=== PATIENT | female | born 1960 | race Caucasian/White ===

== ENCOUNTER 2016-03-03 15:20 | Emergency (ER) | payer SELFPAY ==
[~2016-03-03] VITALS: Wt 68.0 kg
[~2016-03-03 15:20] MED LIST: ALPR0.25 PO; ASCO500C7 PO; MULT-552 PO; OMEP40CA6 PO; POLY17PO6 PO; TRAM50TA2 PO; ZINC220C10 PO
== END 2016-03-03 17:22 | disposition left against medical advice (07) ==
LOC: E/R 15:20
DX: Z53.21 Procedure and treatment not carried out due to patient leaving prior to being seen by health care provider (principal)
CPT/HCPCS: 93005

== ENCOUNTER 2016-03-16 13:47 | Day surgery (SDC) | payer OTHER ==
[~2016-03-16] VITALS: Ht 170.2 cm; Wt 68.9 kg
[2016-03-16 14:49] VITALS: Ht 170.2 cm; Wt 68.9 kg
[2016-03-16] MEDS ORDERED: LACTULOSE (14:49)
[2016-03-16] MEDS ORDERED: ZOFRAN (14:49)
[2016-03-16] MEDS ORDERED: COLACE (14:49)
[2016-03-16] MEDS ORDERED: MORPHINE (14:49)
[2016-03-16 15:17] VITALS: BP 102/51; PULSE 63; RESP 18
[2016-03-16] MEDS ORDERED: FENTAnyl 50 MCG/ML VIAL ONE (15:49)
[2016-03-16] MEDS ORDERED: PROPOFOL 20 ML ONE (15:49)
[2016-03-16] MEDS ORDERED: MIDAZOLAM 1 MG/ML 2 ML INJ ONE (15:49)
[2016-03-16 16:45] VITALS: BP 115/66; PULSE 77; RESP 18
--- NOTE | 2016-03-16 18:42 | GILP ---
DATE OF PROCEDURE: 03/16/2016 PROCEDURE: Colonoscopy via colostomy and colonoscopy via rectum with biopsies. BRIEF HISTORY AND INDICATIONS: The patient with history of colon cancer, post low anterior resectio n, here for reevaluation for possible reanastomosis. PREMEDICATION: Monitored anesthesia care by anesthesiologist. TECHNIQUE: After informed consent, the patient was placed in the left lateral decubitus. Digital r ectal examination was performed. Following this, the Olympus colonoscope was introduced. The remna nt of the rectum extends for approximately 12 to 15 cm. It shows changes typical for deviation proc titis with friability of the mucosa. A single biopsy was obtained. The instrument was withdrawn. Moderate sized internal hemorrhoids are present. Following this, the patient was placed in the supi ne position. The colostomy bag was opened and the instrument was carefully introduced into the osto my and advanced throughout all segments of the colon, which appeared unremarkable. The instrument w as withdrawn and reexamined the mucosa in detail. No additional abnormalities are noted. IMPRESSION: 1. 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 2. Normal appearing mucosa to cecum via ostomy. PLAN: Pathology will be reviewed as soon as available. The patient appears cleared for reanastomos is. Followup colonoscopy within a year is recommended. Dictated By: ROMAN DAVIS MS/JUANITO Conf#: [id number] DID#: [id number] CC: ROMAN DAVIS;*EndCC*
== END 2016-03-16 16:33 | disposition home or self-care (01) ==
LOC: GIL 13:47
PROVIDERS: ATTEND Internal Medicine Gastroenterology
DX: Z85.038 Personal history of other malignant neoplasm of large intestine (principal); K62.89 Other specified diseases of anus and rectum
CPT/HCPCS: 45380; 84703; 88305; J2250; J3010; Z7610

== ENCOUNTER 2016-08-18 17:13 | Emergency (ER) | payer OTHER ==
[~2016-08-18] VITALS: Ht 167.6 cm; Wt 66.0 kg
[~2016-08-18 17:13] MED LIST changes: -ALPR0.25 PO; -ASCO500C7 PO; +COLACE; +LACTULOSE; +MORPHINE; -POLY17PO6 PO; -TRAM50TA2 PO; -ZINC220C10 PO; +ZOFRAN
[2016-08-18 17:19] VITALS: Ht 167.6 cm; Wt 66.0 kg
[2016-08-18] MEDS ORDERED: DEXTROSE 5% IV STA (17:57)
[2016-08-18] MEDS ORDERED: ACETAMINOPHEN 500 MG TAB PO STA (17:57)
[2016-08-18] MEDS ORDERED: morphine 4 MG/ML VIAL IV STA (17:57)
[2016-08-18] MEDS ORDERED: ONDANSETRON IV STA (17:57)
[2016-08-18] MEDS ORDERED: SOD CHLORIDE 0.9% 1,000 ML IV STA (17:57)
[2016-08-18] MEDS ORDERED: IBUPROFEN 800 MG TAB PO ONE (18:30)
[2016-08-18] MEDS ORDERED: ONDANSETRON 4 MG INJ ONE (18:33)
[2016-08-18] MEDS ORDERED: ONDANSETRON 4 MG INJ IV STA (18:36)
--- NOTE | 2016-08-18 18:42 | RADRPT ---
PROCEDURE: CT Abdomen and Pelvis without contrast. CLINICAL INDICATION: Abdominal and flank pain TECHNIQUE: CT of the abdomen and pelvis was performed on a multi-detector scanner without IV contr ast. Coronal and sagittal images were reformatted from the axial data set. One or more of the foll owing dose reduction techniques were used: automated exposure control, adjustment of the mA and/or k V according to patient size, use of iterative reconstruction technique. CTDI = 8.64 mGy. DLP = 474. 24 mGy-cm. COMPARISON: CT, 07/21/2015 FINDINGS: CT abdomen: The lung bases are clear. The heart size is normal, without pericardial effusion. The liver is cir rhotic. No gross evidence of focal hepatic mass is identified. Gallbladder is surgically absent. Biliary tree and pancreas are unremarkable. Splenomegaly is noted measuring 14 cm. Adrenal glands and kidneys are unremarkable. No urolithiasis or obstructive uropathy is identified. The stomach i s grossly unremarkable. The aorta is of normal caliber. There is no retroperitoneal lymphadenopathy. The kaitlin hepatis reg ion is clear. CT pelvis: No bowel obstruction, free intraperitoneal air or abscess is identified. The patient is status post sigmoid colon resection and left lower quadrant colostomy placement. Bowel containing parastomal v entral hernia is identified. Mild retained fecal material may indicate constipation. There is no d iverticulosis, diverticulitis, colitis or appendicitis. There is suspicion of mild urinary bladder wall thickening and adjacent edema. Uterus and adnexa are grossly unremarkable. No pelvic mass, fr ee fluid or lymphadenopathy is identified. The surrounding osseous structures are remarkable for degenerative enthesopathy of the spine. No os teolytic or osteoblastic lesion is detected. IMPRESSION: 1. There is suspicion of mild urinary bladder wall thickening and adjacent edema, possibly artifact ual secondary to incomplete distension, though cystitis is not excluded. 2. The liver is cirrhotic. Splenomegaly is noted, which can be seen in the setting of portal hyper tension. 3. The patient is status post sigmoid colon resection and left lower quadrant colostomy placement. 4. Bowel containing parastomal ventral hernia is identified, without obstruction or incarceration, new when compared to the prior exam. 5. Gallbladder is surgically absent. 6. Mild retained fecal material may indicate constipation. 7. There is no urolithiasis or obstructive uropathy. RPTAT: PP .Larry Murray MD, MD Date Time Electronically viewed and signed by .Larry Murray MD, MD on 08/18/2016 18:42 .R/
--- NOTE | 2016-08-18 18:50 | ERD ---
ER Documentation Chief Complaint Date/Time DATE: 08/18/16 TIME: 18:47 Chief Complaint Complains of abdominal pain and urine problems x 3 days HPI This 55-year-old female who presents the emergency department today complaining of burning and pain with urination for the past couple of days, abdominal pain and right-sided back pain. Patient states that she has had increased frequency. States she think she has a history of kidney stones. States she has a history of colon cancer and has a colostomy bag. States she last finished chemotherapy 3 months ago. She has a history of hepatitis C with cirrhosis. States that she took a morphine pill this morning that she had left over from her surgery. Denies any diarrhea, constipation ROS All systems reviewed and are negative except as per history of present illness. Medications Home Meds Active Scripts Ciprofloxacin Hcl* (Ciprofloxacin Hcl*) 500 Mg Tablet, 500 MG PO BID for 10 Days , TAB Prov:MUNDO DAVIS PA-C 08/18/16 Ibuprofen* (Motrin*) 600 Mg Tab, 600 MG PO Q6, #30 TAB Prov:MUNDO DAVIS PA-C 08/18/16 Reported Medications [Colace] No Conflict Check 03/16/16 [Lactulose] No Conflict Check 03/16/16 [Zofran] No Conflict Check 03/16/16 [Morphine] No Conflict Check 03/16/16 Multivitamins* (Once Daily*) 1 Tab Tablet, 1 TAB PO DAILY, TAB 07/21/15 Omeprazole* (Omeprazole*) 40 Mg Capsule.dr, 40 MG PO DAILY, #30 CAP 05/18/15 Allergies Allergies: Coded Allergies: No Known Allergy (Unverified , 07/21/15) PMhx/Soc History of Surgery: Yes (COLOSTOMY PLACEMENT, CHOLECYSTECTOMY, ) Anesthesia Reaction: No Hx Neurological Disorder: No Hx Respiratory Disorders: No Hx Cardiac Disorders: No Hx Psychiatric Problems: Yes (ANXIETY) Hx Miscellaneous Medical Probl: Yes (HEP C) Hx Alcohol Use: No Hx Substance Use: No Hx Tobacco Use: No Smoking Status: Never smoker Physical Exam Vitals Vital Signs Date Time Temp Pulse Resp B/P Pulse Ox O2 Delivery O2 Flow Rate FiO2 08/18/16 17:19 100.7 100 20 146/91 97 Physical Exam Const: No acute distress Head: Atraumatic Eyes: Normal Conjunctiva ENT: Normal External Ears, Nose and Mouth. Neck: Full range of motion..~ No meningismus. Resp: Clear to auscultation bilaterally Cardio: Regular rate and rhythm, no murmurs Abd: Soft, diffuse abdominal tenderness, non distended. Normal bowel sounds. No drainage from colostomy bag. No erythema. Skin: No petechiae or rashes Back: No midline tenderness. Right-sided flank tenderness. Full active range of motion. Ext: No cyanosis, or edema Neur: Awake and alert Psych: Normal Mood and Affect Result Diagram: 08/18/16182908/18/161829 Results 24 hrs Laboratory Tests Test 08/18/16 18:18 08/18/16 18:30 Urine Color DINH Urine Clarity CLOUDY Urine pH 5.0 Urine Specific [place] 1.019 Urine Ketones NEGATIVEmg/dL Urine Nitrite NEGATIVEmg/dL Urine Bilirubin NEGATIVEmg/dL Urine Urobilinogen 1+mg/dL Urine Leukocyte Esterase 2+Melinda/ul Urine Microscopic RBC > 182/HPF Urine Microscopic WBC > 182/HPF Urine Squamous Epithelial Cells FEW/HPF Urine Bacteria FEW/HPF Urine Mucus MANY/HPF Urine Hemoglobin 3+mg/dL Urine Glucose NEGATIVEmg/dL Urine Total Protein 2+mg/dl White Blood Count 4.310^3/ul Red Blood Count 4.5210^6/ul Hemoglobin 12.9g/dl Hematocrit 39.7% Mean Corpuscular Volume 87.8fl Mean Corpuscular Hemoglobin 28.5pg Mean Corpuscular Hemoglobin Concent 32.5g/dl Red Cell Distribution Width 15.2% Platelet Count 5610^3/UL Mean Platelet Volume 11.2fl Neutrophils % 70.0% Lymphocytes % 23.0% Monocytes % 4.0% Eosinophils % 3.0% Neutrophils # 3.010^3/ul Lymphocytes # 1.010^3/ul Monocytes # 0.210^3/ul Eosinophils # 0.110^3/ul Platelet Estimate PLT APPEAR DECREASED Rouleau 3+ Sodium Level 133mmol/L Potassium Level 3.9mmol/L Chloride Level 100mmol/L Carbon Dioxide Level 29mmol/L Anion Gap 8 Blood Urea Nitrogen 12mg/dl Creatinine 0.51mg/dl Glucose Level 95mg/dl Calcium Level 9.3mg/dl Total Bilirubin 0.7mg/dl Direct Bilirubin 0.00mg/dl Indirect Bilirubin 0.7mg/dl Aspartate Amino Transf (AST/SGOT) 41IU/L Alanine Aminotransferase (ALT/SGPT) 49IU/L Alkaline Phosphatase 91IU/L Total Protein 9.5g/dl Albumin 4.8g/dl Globulin 4.70g/dl Albumin/Globulin Ratio 1.02 Lipase 189U/L Current Medications Medications (Trade) Dose Ordered Sig/Tyler Route PRN Reason Start Time Stop Time Status Last Admin Dose Admin Sodium Chloride (NS) 1,000 ml @ 1,000 mls/hr Q1H STAT IV 08/18/16 17:57 08/18/16 18:56 DC 08/18/16 18:35 Morphine Sulfate 4 mg 4 mg ONCE STAT IV 08/18/16 17:57 08/18/16 18:01 DC 08/18/16 18:37 Ondansetron HCl/ Dextrose (Zofran Inj/D5W) 52 ml @ 200 mls/hr ONCE STAT IV 08/18/16 17:57 08/18/16 18:12 Cancel Acetaminophen (Tylenol Tab) 500 mg ONCE STAT PO 08/18/16 17:57 08/18/16 18:01 DC Ibuprofen (Motrin) 800 mg ONCE ONCE PO 08/18/16 18:30 08/18/16 18:31 DC 08/18/16 18:37 Ondansetron HCl (Zofran Inj) 4 mg STK-MED ONCE .ROUTE 08/18/16 18:33 08/18/16 18:34 DC Ondansetron HCl 4 mg 4 mg ONCE STAT IV 08/18/16 18:36 08/18/16 18:38 DC 08/18/16 18:42 Ceftriaxone Sodium (Rocephin) 50 ml @ 100 mls/hr ONCE ONCE IVPB 08/18/16 19:30 08/18/16 19:59 08/18/16 19:33 DIAGNOSTIC IMAGING REPORT Patient: GUANAKITO DANIELS : 1960 Age: 55 Sex: F MR #: [id number] DOS: 08/18/16 175 Ordering MD: MUNDO DAVIS PA-C Location: [facility] Room/Bed: PROCEDURE: CT Abdomen and Pelvis without contrast. CLINICAL INDICATION: Abdominal and flank pain TECHNIQUE: CT of the abdomen and pelvis was performed on a multi-detector scanner without IV contrast. Coronal and sagittal images were reformatted from the axial data set. One or more of the following dose reduction techniques were used: automated exposure control, adjustment of the mA and/or kV according to patient size, use of iterative reconstruction technique. CTDI = 8.64 mGy. DLP = 474.24 mGy-cm. COMPARISON: CT, 07/21/2015 FINDINGS: CT abdomen: The lung bases are clear. The heart size is normal, without pericardial effusion. The liver is cirrhotic. No gross evidence of focal hepatic mass is identified. Gallbladder is surgically absent. Biliary tree and pancreas are unremarkable. Splenomegaly is noted measuring 14 cm. Adrenal glands and kidneys are unremarkable. No urolithiasis or obstructive uropathy is identified. The stomach is grossly unremarkable. The aorta is of normal caliber. There is no retroperitoneal lymphadenopathy. The kaitlin hepatis region is clear. CT pelvis: No bowel obstruction, free intraperitoneal air or abscess is identified. The patient is status post sigmoid colon resection and left lower quadrant colostomy placement. Bowel containing parastomal ventral hernia is identified. Mild retained fecal material may indicate constipation. There is no diverticulosis, diverticulitis, colitis or appendicitis. There is suspicion of mild urinary bladder wall thickening and adjacent edema. Uterus and adnexa are grossly unremarkable. No pelvic mass, free fluid or lymphadenopathy is identified. The surrounding osseous structures are remarkable for degenerative enthesopathy of the spine. No osteolytic or osteoblastic lesion is detected. IMPRESSION: 1. There is suspicion of mild urinary bladder wall thickening and adjacent edema, possibly artifactual secondary to incomplete distension, though cystitis is not excluded. 2. The liver is cirrhotic. Splenomegaly is noted, which can be seen in the setting of portal hypertension. 3. The patient is status post sigmoid colon resection and left lower quadrant colostomy placement. 4. Bowel containing parastomal ventral hernia is identified, without obstruction or incarceration, new when compared to the prior exam. 5. Gallbladder is surgically absent. 6. Mild retained fecal material may indicate constipation. 7. There is no urolithiasis or obstructive uropathy. RPTAT: PP .Larry Murray MD, MD Date Time Electronically viewed and signed by .Larry Murray MD, on 08/18/2016 18: 42 .R/ CC: MUNDO DAVIS PA-C Procedures/MDM This 55-year-old female presents the emergency department today complaining of abdominal pain, right-sided back pain and dysuria for the past couple of days. Patient was febrile at 100.7. She was slightly tachycardic. She has a history of colon resection and recent bout of chemotherapy completed within the last 3 months. Given patient's physical exam and history I did obtain laboratory work as well as imaging Laboratory workup shows a very mildly decreased white blood cell count. She is not anemic. Platelets are significantly decreased at 56 she has no neutropenia. Her sodium was mildly decreased at 133. Electrolytes are otherwise within normal limits. Lipase is within normal limits. Liver enzymes are within normal limits. UA shows 2+ leukocyte esterase and greater than 182 white blood cells and red blood cells. Negative nitrates Patient's febrile illness and dysuria and right-sided flank pain consistent with pyelonephritis. Did consider nephrolithiasis however there is no evidence of that on CT scan CT abdomen pelvis shows suspicion of mild urinary bladder wall thickening and adjacent edema possibly artifactual secondary to incomplete distention the cystitis is not excluded. The liver is cirrhotic. Bladder megaly is noted which can be seen in setting of portal hypertension. Patient is status post sigmoid colon resection and left lower quadrant colostomy placement bowel containing parastomal ventral hernia is identified without obstruction or incarceration this is new when compared to the prior exam. Gallbladder surgically absent. There is mild retained fecal material that may indicate constipation. There is no urolithiasis or obstructive uropathy Patient symptoms at this time is consistent with flank pain and thrombocytopenia. Patient was given morphine, Zofran, IV fluids, ceftriaxone and Motrin here in the emergency department. Patient will begin a prescription for Motrin and Cipro. I have explained the results to the patient. At this time the patient is stable for discharge and outpatient management. Patient should follow up with their PCP in the next 1-2 days. They may return to the emergency department sooner for any persistent or worsening of symptoms. Patient understood and agreed with the plan. Discussed the patient with Dr. Fernandez and he is in agreement with the plan Departure Diagnosis: Primary Impression: Flank pain Additional Impression: Thrombocytopenia Condition: Fair MUNDO DAVIS PA-C Aug 18, 2016 18:50
[2016-08-18 18:58] LABS: ADD SCAN DIFF NO
[2016-08-18 19:13] LABS: ABNORMAL IP MESSAGE 1; HEMATOCRIT 39.7 % (37.0-47.0); HEMOGLOBIN 12.9 g/dl (12.0-16.0); MEAN CORPUSCULAR HEMOGLOBIN 28.5 pg (29.0-33.0); MEAN CORPUSCULAR HGB CONC 32.5 g/dl (32.0-37.0); MEAN CORPUSCULAR VOLUME 87.8 fl (82.0-101.0); MEAN PLATELET VOLUME 11.2 fl (7.4-10.4); PLATELET COUNT 56 10^3/UL (140-415); RED BLOOD COUNT 4.52 10^6/ul (4.20-5.40); RED CELL DISTRIBUTION WIDTH 15.2 % (11.5-14.5); WHITE BLOOD COUNT 4.3 10^3/ul (4.8-10.8)
[2016-08-18 19:18] LABS: ADD UMIC YES; UR ASCORBIC ACID 40 mg/dL (NEGATIVE); UR BACTERIA FEW /HPF (NONE SEEN); UR BILIRUBIN (Dip) NEGATIVE (NEGATIVE); UR BLOOD (Dip) 3+ mg/dL (NEGATIVE); UR CLARITY CLOUDY (CLEAR); UR COLOR AMBER (YELLOW); UR GLUCOSE (Dip) NEGATIVE (NEGATIVE); UR KETONES (Dip) NEGATIVE (NEGATIVE); UR LEUKOCYTE ESTERASE (Dip) 2+ Leu/ul (NEGATIVE); UR MUCUS MANY /HPF (NONE SEEN); UR NITRITE (Dip) NEGATIVE (NEGATIVE); UR NONSQUAMOUS EPITHELIAL CELL 7 /HPF (NONE SEEN); UR RBC > 182 /HPF (0-5); UR SPECIFIC GRAVITY (Dip) 1.019 (1.003-1.030); UR SQUAMOUS EPITHELIAL CELL FEW /HPF (FEW); UR TOTAL PROTEIN (Dip) 2+ mg/dl (NEGATIVE); UR UROBILINOGEN (Dip) 1+ mg/dL (NEGATIVE); UR WBC CLUMPS MANY /HPF (NONE SEEN)
[2016-08-18 19:19] LABS: ALBUMIN 4.8 g/dl (3.3-4.9); ALBUMIN/GLOBULIN RATIO 1.02; BILIRUBIN,INDIRECT 0.7 mg/dl (0-1.1); BILIRUBIN,TOTAL 0.7 mg/dl (0.2-1.3); CALCIUM 9.3 mg/dl (8.4-10.2); CREATININE 0.51 mg/dl (0.44-1.00); POTASSIUM 3.9 mmol/L (3.5-5.1); TOTAL PROTEIN 9.5 g/dl (6.1-8.1)
[2016-08-18] MEDS ORDERED: CEFTRIAXONE 1 GM/50 ML (PMX) 50 ML IVPB ONE (19:30)
[2016-08-18 19:42] LABS: EOSINOPHILS # 0.1 10^3/ul (0.0-0.5); MONOCYTE # 0.2 10^3/ul (0.3-0.9)
[2016-08-18 19:43] LABS: PLATELET ESTIMATE PLT APPEAR DECREASED
[2016-08-18] MEDS ORDERED: IBUP-1542 PO (19:53)
[2016-08-18] MEDS ORDERED: CIPR500T4 PO (19:53)
[2016-08-18 20:14] VITALS: BP 146/91; PULSE 77; RESP 20; TEMP 98
== END 2016-08-18 20:15 | disposition home or self-care (01) ==
LOC: FTE 17:13
DX: R10.84 Generalized abdominal pain (principal); D69.6 Thrombocytopenia, unspecified; Z85.038 Personal history of other malignant neoplasm of large intestine
CPT/HCPCS: 36415; 74176; 80053; 81001; 83690; 85025; 87086; 96374; 96375; J0696; J2270; J2405; J7030; Z7502; Z7610

== ENCOUNTER 2016-09-17 20:12 | Emergency (ER) | payer SELFPAY ==
[~2016-09-17] VITALS: Ht 165.1 cm; Wt 67.5 kg
[~2016-09-17 20:12] MED LIST changes: +CIPR500T4 PO; +IBUP-1542 PO
[2016-09-17 20:14] VITALS: Ht 165.1 cm; Wt 67.5 kg
== END 2016-09-17 21:58 | disposition left against medical advice (07) ==
LOC: E/R 20:12
DX: Z53.21 Procedure and treatment not carried out due to patient leaving prior to being seen by health care provider (principal)

== ENCOUNTER 2017-03-23 16:31 | Emergency (ER) | END 2017-03-23 17:38 | disposition left against medical advice (07) ==

== ENCOUNTER 2017-05-27 17:59 | Emergency (ER) | END 2017-05-27 19:01 | disposition home or self-care (01) ==

== ENCOUNTER 2017-05-30 11:46 | Day surgery (SDC) | END 2017-05-30 18:21 | disposition home or self-care (01) ==

== ENCOUNTER 2017-07-04 13:09 | Emergency (ER) | END 2017-07-04 13:52 | disposition home or self-care (01) ==

== ENCOUNTER 2018-01-15 09:00 | Inpatient (IN) | payer OTHER ==
[~2018-01-15] VITALS: Ht 170.2 cm; Wt 73.9 kg
[~2018-01-15 09:00] MED LIST changes: +DOCU-159 PO; +ELBA1TAB PO; +HYDR-3980 PO; +LORA0.5T PO; +LORA1TAB PO; +MORP15TA92 PO
[2018-04-09] VITALS (26 sets, daily range): BP systolic 108–162; BP diastolic 65–85; PULSE 59–102; RESP 12–32; Ht 170.2 cm; Wt 73.9 kg
[2018-04-09] MEDS ORDERED: CEFAZOLIN 1 GM/50 ML (PMX) 50 ML IVPB ONE (07:00)
[2018-04-09] MEDS ORDERED: SOD CHLORIDE 0.9% 1,000 ML IV SCH (07:00)
[2018-04-09] MEDS ORDERED: OMEP40CA6 PO (07:11)
[2018-04-09] MEDS ORDERED: DOCU-144 PO (07:12)
[2018-04-09] MEDS ORDERED: BUPR1PAT10 TD (08:37)
[2018-04-09] MEDS ORDERED: THROMBIN (BOVINE) 5,000 UNIT VIAL TP ONE (09:00)
--- NOTE | 2018-04-09 09:16 | PREAC ---
Date/Time of Note Date/Time of Note DATE: 04/09/18 TIME: 09:12 Anesthesia Eval and Record Evaluation Time Pre-Procedure Interview DATE: 04/09/18 TIME: 09:12 Age 57 Sex female NPO: 8 hrs Preoperative diagnosis Thyroid mass Planned procedure Total Thyroidectomy Past Medical History Past Medical History: Includes GI: GERD, Other (H/O colon CA) Psych: Anxiety Surgery & Anesthesia Issues No known issue Meds Anticoagulation: No Beta Magnolia within 24 hr: No Reason Beta Magnolia not given: Pt. not on B-Magnolia Reported Medications Buprenorphine (Butrans) 1 Each Patch.tdwk, 1 EACH TD Q7DAYS 04/09/18 Docusate Sodium* (Colace*) 100 Mg Capsule, 100 MG PO QAM, #30 CAP 04/09/18 Omeprazole* (Omeprazole*) 40 Mg Capsule.dr, 40 MG PO AC BREAKFAST, #30 CAP 04/09/18 Discontinued Reported Medications Omeprazole* (Omeprazole*) 40 Mg Capsule.dr, 40 MG PO DAILY, #30 CAP 11/14/16 Morphine Sulfate* (Ms Contin*) 15 Mg Tablet.sa, 15 MG PO DAILY, TAB 11/14/16 Elbasvir/Grazoprevir (Zepatier 50-100 mg Tablet) 1 Each Tablet, 1 EACH PO DAILY, TAB 11/14/16 Docusate Sodium* (Docusate Sodium*) 100 Mg Capsule, 100 MG PO BID for CONSTIPATION, #60 CAP 11/14/16 Lorazepam* (Lorazepam*) 1 Mg Tablet, 1 MG PO HS PRN for ANXIETY, #30 TAB 11/14/16 Lorazepam* (Lorazepam*) 0.5 Mg Tablet, 0.5 MG PO BID, TAB 11/14/16 [Colace] No Conflict Check 03/16/16 [Lactulose] No Conflict Check 03/16/16 [Zofran] No Conflict Check 03/16/16 [Morphine] No Conflict Check 03/16/16 Multivitamins* (Once Daily*) 1 Tab Tablet, 1 TAB PO DAILY, TAB 07/21/15 Omeprazole* (Omeprazole*) 40 Mg Capsule.dr, 40 MG PO DAILY, #30 CAP 05/18/15 Discontinued Scripts Hydrocodone/Acetaminophen ([place] 10-325 Tablet) 1 Each Tablet, 1 TAB PO Q6H PRN for PAIN, #4 TAB Prov:OSTICK,PEPITO MD 07/04/17 Ciprofloxacin Hcl* (Ciprofloxacin Hcl*) 500 Mg Tablet, 500 MG PO BID for 10 Days, TAB Prov:MUNDO DAVIS PA-C 08/18/16 Ibuprofen* (Motrin*) 600 Mg Tab, 600 MG PO Q6, #30 TAB Prov:MUNDO DAVIS PA-C 08/18/16 Current Medications Sodium Chloride 1,000 ml @ 75 mls/hr [id number] IV Last administered on 04/09/18at 07:00; Admin Dose 75 MLS/HR; Start 04/09/18 at 07:00; Stop 04/09/18 at 20:19 Meds reviewed: Yes Allergies Coded Allergies: No Known Drug Allergies (Verified Allergy, Severe, 04/09/18) acetaminophen (Verified Adverse Reaction, Severe, CANNOT TAKE BEACUSE OF CIRRHOSIS, 04/09/18) ibuprofen (Verified Adverse Reaction, Severe, CANNOT TAKE BEACUSE CAUSES GI BLEED, 04/09/18) Allergies Reviewed: Yes Labs/Studies Labs Reviewed: Reviewed by anesthesiologist test: Negative Studies: ECG Pre-procedure Exam Last vitals Vital Signs Date Temp Pulse Resp B/P (MAP) Pulse Ox O2 O2 Flow FiO2 Time Delivery Rate 04/09/18 97.3 76 16 136/75 95 Room Air 07:57 (95) Airway: Adequate mouth opening, Adequate thyromental dist Mallampati: Mallampati II Teeth: Normal Lung: Normal Heart: Normal ASA Physical Status ASA physical status: 2 Emergency: None Planned Anesthetic General/MAC: ETT Planned Pain Management Parenteral pain med Pre-operative Attestations Prior to commencing anesthesia and surgery, the patient was re-evaluated, there was verification of: *The patient's identity *The results of appropriate recent lab work and preoperative vital signs *The above evaluation not changing prior to induction *Anesthetic plan, risk benefits, alternative and complications discussed with patient/family; questions answered; patient/family understands, accepts and wishes to proceed. CK SEPULVEDA MD Apr 09, 2018 09:16
[2018-04-09] MEDS ORDERED: MIDAZOLAM 1 MG/ML 2 ML INJ ONE (09:23)
[2018-04-09] MEDS ORDERED: CEFAZOLIN 1 GM INJ ONE (11:09)
[2018-04-09] MEDS ORDERED: LIDOCAINE 2% (SDV) 5 ML INJ ONE (11:09)
[2018-04-09] MEDS ORDERED: SUCCINYLCHOLINE CHLORIDE 100 MG/5 ML SYG IV ONE (11:09)
[2018-04-09] MEDS ORDERED: ROCURONIUM 50 MG INJ ONE (11:09)
[2018-04-09] MEDS ORDERED: PROPOFOL 20 ML ONE (11:09)
[2018-04-09] MEDS ORDERED: ONDANSETRON 4 MG INJ ONE (11:10)
[2018-04-09] MEDS ORDERED: hydrALAzine 20 MG INJ ONE (11:22)
--- NOTE | 2018-04-09 11:23 | SIPON ---
Date/Time of Note Date/Time of Note DATE: 04/09/18 TIME: 11:21 Operative Report Preoperative Diagnosis Right thyroid nodule rule out malignancy Postoperative Diagnosis Same Operation/Procedure Performed Right thyroid lobectomy Surgeon see signature line dental ceramist assistant Dr Sheikh Anesthesia: general Estimated blood loss: 10 - 50 ml's Transfusion Required none Specimen Right thyroid lobe Grafts/Implants none Complications none SHANDA LEONG MD Apr 09, 2018 11:23
[2018-04-09] MEDS ORDERED: ONDANSETRON 4 MG INJ IV PRN ×2 (11:30→12:00)
--- NOTE | 2018-04-09 11:41 | PAC ---
Date/Time of Note Date/Time of Note DATE: 04/09/18 TIME: 11:40 Post-Anesthesia Notes Post-Anesthesia Note Last documented vital signs Vital Signs Date Temp Pulse Resp B/P (MAP) Pulse Ox O2 O2 Flow FiO2 Time Delivery Rate 04/09/18 97.3 76 16 136/75 95 Room Air 07:57 (95) Activity: WNL Respiratory function: WNL Cardiovascular function: WNL Mental status: Baseline Pain reasonably controlled: Yes Hydration appropriate: Yes Nausea/Vomiting absent: Yes Comments BP:140/56, P:78, spo2:100%, T:98,9 CK SEPULVEDA MD Apr 09, 2018 11:41
[2018-04-09] MEDS ORDERED: DIPHENHYDRAMINE 50 MG INJ IV PRN (12:00)
[2018-04-09] MEDS ORDERED: METOCLOPRAMIDE 10 MG INJ IV PRN (12:00)
[2018-04-09] MEDS ORDERED: FENTAnyl 50 MCG/ML VIAL IV PRN (12:00)
[2018-04-09] MEDS ORDERED: MEPERIDINE 25 MG INJ IV PRN (12:00)
[2018-04-09] MEDS: morphine 2 MG INJ IV PRN ×3 (12:10→13:51)
--- NOTE | 2018-04-09 12:32 | OPR ---
DATE OF OPERATION: 04/09/2018 PREOPERATIVE DIAGNOSIS: Suspicious right thyroid nodule, rule out cancer. POSTOPERATIVE DIAGNOSIS: Suspicious right thyroid nodule, rule out cancer. PROCEDURE: Right thyroid lobectomy. ANESTHESIA: General. ANESTHESIOLOGIST: Hadley Kilpatrick MD SURGEON: Primitivo Cook MD OUTREACH REPRESENTATIVE: Momo Sheikh MD INDICATIONS FOR PROCEDURE: The patient is a 57-year-old female who presented with a right thyroid no dule approximately 1.3 cm. FNA was read as [place] category 3. A repeat FNA with Afirma evaluation came back as suspicious. The patient was counseled as to need for right thyroid lobectomy, possible total thyroid lobectomy. She consented and was scheduled for surgery. DESCRIPTION OF PROCEDURE: The patient was brought to the operating theater, placed under general ane sthesia. The neck was placed in the extended position and it was prepped and draped in usual sterile fashion. Planned incision was demarcated with marking pen approximately 2 cm above the clavicle on either side extending for approximately 4 cm on either side of midline. The incision was carried out with 15-blade scalpel. Subcutaneous tissue was dissected through the platysma muscles bilaterally. The subplatysmal flaps were then created using cautery first inferiorly to the level of the clavicle s and sternal notch then superiorly to the level of the hyoid bone. The Villalba retractor was then p laced and the median raphe was incised longitudinally in the standard fashion. Attention was directe d to the right thyroid gland. The underlying strap muscles were meticulously dissected off of the ca psule of the thyroid. The thyroid was then mobilized towards midline. Attention was first directed to superior pole which was sequentially isolated and transected using the LigaSure device. Great car e was taken to identify the superior parathyroid gland and it was kept out of harm's way more inferio rly. The inferior pole was mobilized in similar fashion. The right recurrent laryngeal nerve was id entified throughout its course and confirmed with nerve monitoring and kept out of harm's way. In th is fashion, the right lobe of thyroid was mobilized until the only remaining attachments were to the anterior surface of the trachea consisted of ligament of [place]aza. This was transected using cautery. Specimen was then transected, oriented and sent for intraoperative gross analysis to evaluate the nod ule and also for satellite lesions. This was performed by attending pathologist, Dr. Rogelio Estes. The nodule was identified. It was less than 1 cm and margins appeared quite clear. There was no julio dence of satellite nodules. Therefore, Dr. Cook made decision that total thyroidectomy would not be indicated. The wound was irrigated. Minimal bleeding was controlled with cautery. The median raph e was then reapproximated with multiple 4-0 Vicryl sutures in interrupted fashion. Subsequently, the platysma muscles were also reapproximated with 4-0 Vicryl sutures in interrupted fashion and then th e skin was reapproximated with 5-0 PDS sutures in subcuticular fashion and benzoin and Steri-Strips w ere applied. The patient tolerated the procedure well. The estimated blood loss was approximately 3 0 mL. There were no complications and the patient was transported in stable condition to the recover y room where circumferential compression dressing was applied. Dictated By: PRIMITIVO COOK MD TL/JUANITO Conf#: [id number] DID#: [id number] CC: DAVI KAHN MD;*EndCC*
[2018-04-09] MEDS: D5W-0.45 NACL + KCL 20 MEQ 1,000 ML IV SCH ×2 (13:18→22:21)
--- NOTE | 2018-04-09 15:23 | HP ---
DATE OF ADMISSION: 04/09/2018 CHIEF COMPLAINT AND HISTORY OF PRESENT ILLNESS: The patient is a 57-year-old female well known to me from previous admission. The patient has history of rectal cancer status post surgery as well as w ell as chemo and radiation. The patient has a colostomy. The patient also has history of hepatitis C and history of pancytopenia. The patient was seen by Dr. Cook as an outpatient for suspicious rig ht thyroid nodule. FNAC came back as suspicious. The patient was brought into hospital today and un derwent right thyroid lobectomy. The patient has significant postoperative pain and is being admitte d for further evaluation and management. The patient's margins intraoperatively were clear. The pat ient denied any chest pain or shortness of breath. No history of fever or chills. No history of margret sea, vomiting. No history of abdominal pain. No history of focal weakness. REVIEW OF SYSTEMS: Other than postoperative pain, rest of review of systems were unremarkable. PAST MEDICAL HISTORY: As stated above. The patient back in 2016 underwent colonoscopy via colostomy with normal appearing mucosa to the cecum ostomy. ALLERGIES: NONE. PAST SURGICAL HISTORY: As stated above and also, the patient is status post laparoscopic cholecystec jeff. As mentioned above, the patient also underwent elective laparoscopic converted to open proctos igmoidectomy and end colostomy back [place] [address] Miller. FAMILY HISTORY: Noncontributory. SOCIAL HISTORY: No smoking or alcohol. PHYSICAL EXAMINATION: GENERAL: Revealed the patient to be awake, alert, fairly oriented. VITAL SIGNS: Temperature 98.3, pulse 90, respirations 16, blood pressure 134/73, O2 saturation is 95 % on room air. HEENT: No eye discharge or redness. Conjunctivae and lids are normal. Nose and ears are normal. NECK: The patient is status post recent surgery. CHEST: Fairly clear. CARDIOVASCULAR: S1, S2 normal. Regular rate and rhythm. ABDOMEN: Soft, nondistended, nontender. NEUROLOGIC: The patient is awake, alert with no gross focal deficit. EXTREMITIES: No leg edema. Pedal pulses are palpable. LABORATORY DATA: Pending. IMPRESSION: 1. Suspicious right thyroid nodule, status post right thyroid lobectomy. 2. Rectal cancer, status post proctosigmoidectomy and colostomy. 3. Chronic hepatitis C. 4. Chronic thrombocytopenia. PLAN: The patient will be admitted on medical floor. The patient will be started on clear liquid di et, which will be advanced as tolerated. The patient will be started on IV fluid and morphine for pa in control and also IV Zofran for nausea, vomiting. We will use SCD for DVT prophylaxis. After disc harge, the patient has been requested to continue follow up with her PMD. We will obtain CBC and CMP . We will also have serial calcium. Dictated By: DAVI KAHN MD AB/NTS Conf#: [id number] DID#: [id number] CC: SHANDA COOK MD;*EndCC*
[2018-04-10] MEDS: D5W-0.45 NACL + KCL 20 MEQ 1,000 ML IV SCH ×3 (06:16→22:30)
[2018-04-10 07:29] VITALS: BP 133/79; PULSE 75; RESP 18
[2018-04-10 14:00] VITALS: BP 130/75; PULSE 70; RESP 18
--- NOTE | 2018-04-10 15:49 | PN ---
DATE: 04/10/2018 STATUS POST: Right-sided thyroid lobectomy. Postop day #1. SUBJECTIVE: Patient has been complaining of too much nausea and occasional vomiting. Has not been able to eat and she is actually very afraid to eat. This also has been observed by the RN who is taking care of the patient. OBJECTIVE: GENERAL: Awake. Alert. Her voice is normal. VITAL SIGNS: Temperature maximum 98.6, heart rate 75, respiration 18, blood pressure 133/79, saturation 93% on room air. Dressing was removed. Wound is clean and dry. LUNGS: Clear. ABDOMEN: Soft. Colostomy is functioning. LABORATORY DATA: WBC 4200 with 60% segmented. Today hemoglobin 12.3, hematocrit 38.9. Chemistry: Calcium is 8.9 and actually has been at the same level since yesterday. Sodium and potassium normal. BUN and creatinine normal. ASSESSMENT AND PLAN: A 57-year-old patient who had a suspicious nodule on the ultrasound and fine needle aspiration biopsy was suspicious for [place]. Patient was counseled and recommended to the patient operation, possible lobectomy with possible total thyroidectomy. The patient had accepted and signed the consent. Anyway yesterday, right lobectomy was performed and the pathologist grossly examined the specimen. The nodule in the Rt.lobe was 1 cm. Therefore, surgeon Dr. Cook decided to proceed just right thyroid lobectomy and sent the specimen for permanent and further decision will be made depending on the pathology report. On the other hand, since the patient has been nauseous and been vomiting, we are going to keep the patient at least for 1 more night and start the patient on full liquid diet, tomorrow, advance to soft diet and if advanced then can discharge her tomorrow. Dictated By: COLTEN JO MD PS/NTS Conf#: [id number] DID#: [id number] MTDD
--- NOTE | 2018-04-10 16:33 | PN ---
Date/Time of Note Date/Time of Note DATE: 04/10/18 TIME: 16:28 Assessment/Plan VTE Prophylaxis Risk score (from Ns)>0 risk: 5 SCD applied (from Ns): Yes Pharmacological prophylaxis: NA/contraindicated Pharm contraindication: surgical contra Lines/Catheters IV [facility]ter Type [facility]from [facility]): Peripheral IV Assessment/Plan Hospital Course Patient complains of nausea had episode of nonbloody nonbilious emesis earlier today appears anxious continue current pain management and antiemetics progress diet per surgical recommendations. Assessment/Plan 1. Suspicious right thyroid nodule, status post right thyroid lobectomy. 2. Rectal cancer, status post proctosigmoidectomy and colostomy. 3. Chronic hepatitis C. 4. Chronic thrombocytopenia. Further recommendations based on clinical course. Plan of care discussed with Dr. Thurman. Result Diagram: 04/10/18 0422 04/10/18 0422 Results 24hrs Laboratory Tests Test 04/09/18 17:44 04/10/18 00:36 04/10/18 04:22 04/10/18 07:45 Calcium Level 8.7 8.7 8.9 White Blood Count 4.2 L Red Blood Count 4.46 Hemoglobin 12.3 Hematocrit 38.9 Mean Corpuscular 87.2 Volume Mean Corpuscular 27.6 L Hemoglobin Mean Corpuscular 31.6 L Hemoglobin Concent Red Cell Distribution 13.5 Width Platelet Count 66 L Mean Platelet Volume 11.2 H Immature Granulocytes 0.200 % Neutrophils % 60.9 Lymphocytes % 28.2 Monocytes % 8.4 Eosinophils % 2.1 Basophils % 0.2 Nucleated Red Blood 0.0 Cells % Immature Granulocytes 0.010 # Neutrophils # 2.6 Lymphocytes # 1.2 Monocytes # 0.4 Eosinophils # 0.1 Basophils # 0.0 Nucleated Red Blood 0.0 Cells # Sodium Level 142 Potassium Level 4.1 Chloride Level 105 Carbon Dioxide Level 28 Anion Gap 9 Blood Urea Nitrogen 5 L Creatinine 0.43 L Est Glomerular > 60 Filtrat Rate mL/min Glucose Level 116 Total Bilirubin 0.5 Direct Bilirubin 0.00 Indirect Bilirubin 0.5 Aspartate Amino 27 Transf (AST/SGOT) Alanine 25 Aminotransferase (ALT /SGPT) Alkaline Phosphatase 74 Total Protein 7.3 Albumin 3.9 Globulin 3.40 H Albumin/Globulin 1.14 Ratio Lab Scanned Report REFERENCE LAB Exam/Review of Systems Exam Vitals Vital Signs Date Temp Pulse Resp B/P (MAP) Pulse Ox O2 O2 Flow FiO2 Time Delivery Rate 04/10/18 98.6 75 18 133/79 93 Room Air 07:29 (97) 04/09/18 8.0 11:23 Intake and Output 04/09/18 04/09/18 04/10/18 1515:00 23:00 07:00 IntakeIntake Total 800 ml 1240 ml 1000 ml OutputOutput Total 20 ml 350 ml BalanceBalance 780 ml 890 ml 1000 ml Constitutional: alert, oriented Neck: other (Status post surgery with intact surgical dressing) Respiratory: clear to auscultation Cardiovascular: nl pulses Gastrointestinal: soft, non-tender Musculoskeletal: nl extremities to inspection Extremities: normal pulses Neurological: nl mental status Results Results 24hrs Laboratory Tests Test 04/09/18 17:44 04/10/18 00:36 04/10/18 04:22 04/10/18 07:45 Calcium Level 8.7 8.7 8.9 White Blood Count 4.2 L Red Blood Count 4.46 Hemoglobin 12.3 Hematocrit 38.9 Mean Corpuscular 87.2 Volume Mean Corpuscular 27.6 L Hemoglobin Mean Corpuscular 31.6 L Hemoglobin Concent Red Cell Distribution 13.5 Width Platelet Count 66 L Mean Platelet Volume 11.2 H Immature Granulocytes 0.200 % Neutrophils % 60.9 Lymphocytes % 28.2 Monocytes % 8.4 Eosinophils % 2.1 Basophils % 0.2 Nucleated Red Blood 0.0 Cells % Immature Granulocytes 0.010 # Neutrophils # 2.6 Lymphocytes # 1.2 Monocytes # 0.4 Eosinophils # 0.1 Basophils # 0.0 Nucleated Red Blood 0.0 Cells # Sodium Level 142 Potassium Level 4.1 Chloride Level 105 Carbon Dioxide Level 28 Anion Gap 9 Blood Urea Nitrogen 5 L Creatinine 0.43 L Est Glomerular > 60 Filtrat Rate mL/min Glucose Level 116 Total Bilirubin 0.5 Direct Bilirubin 0.00 Indirect Bilirubin 0.5 Aspartate Amino 27 Transf (AST/SGOT) Alanine 25 Aminotransferase (ALT /SGPT) Alkaline Phosphatase 74 Total Protein 7.3 Albumin 3.9 Globulin 3.40 H Albumin/Globulin 1.14 Ratio Lab Scanned Report REFERENCE LAB Medications Medication Current Medications Ondansetron HCl (Zofran Inj) 4 mg Q6H PRN IV NAUSEA AND/OR VOMITING; Start 04/09/18 at 11:30 Potassium Chloride/Dextrose/ Sod Cl 1,000 ml @ 125 mls/hr Q8H IV Last administered on 04/10/18at 14:56; Admin Dose 125 MLS/HR; Start 04/09/18 at 11:23 Morphine Sulfate (morphine) 2 mg Q1H PRN IV PAIN Last administered on 04/09/18at 13:51; Admin Dose 2 MG; Start 04/09/18 at 11:30 BRITTANEY REESE Apr 10, 2018 16:33
[2018-04-10] MEDS: HYDROCODONE/APAP (5/325) TAB PO PRN (17:44)
[2018-04-10 20:41] VITALS: BP 123/69; PULSE 66; RESP 20
[2018-04-11 02:00] VITALS: BP 111/71; PULSE 58; RESP 19
[2018-04-11] MEDS: D5W-0.45 NACL + KCL 20 MEQ 1,000 ML IV SCH (03:19)
[2018-04-11] MEDS: HYDROCODONE/APAP (5/325) TAB PO PRN ×3 (03:43→12:58)
[2018-04-11 08:23] VITALS: BP 137/77; PULSE 55; RESP 20
[2018-04-11] MEDS ORDERED: HYDR-3601 PO (12:13)
--- NOTE | 2018-04-11 17:18 | PN ---
DATE: 04/11/2018 Postop day #1 status post right thyroid lobectomy. SUBJECTIVE: No complaint. No more nausea, no vomiting. She has tolerated diet. She has been out o f bed, walking around. OBJECTIVE: GENERAL: Awake, alert and oriented. VITAL SIGNS: Temperature maximum 98.6, heart rate 55, respirations 20, blood pressure 137/77 and sat uration 96% on room air. HEART: Regular. LUNGS: Clear. ABDOMEN: Soft. NECK: Dressing was removed. Wound is clean. There is no ecchymosis. There is no bleeding and ther e is no swelling. The patient's voice is normal. LABORATORY DATA: WBC is 2300 with 45% neutrophils. Hemoglobin 11.5, hematocrit 35.3, platelet count is down to 62, on admission was 66. Chemistry: No chemistry done today. ASSESSMENT AND PLAN: A 57-year-old female who had suspicious fine needle aspiration biopsy of the ri ght thyroid nodule. 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 The patient is stable enough to be discharged home. Instruction was given to the patient. The patient is to call Dr. Leong' office tomorrow and make an appointment for followup. Dictated By: COLTEN JO MD PS/NTS Conf#: [id number] DID#: [id number] CC: SHANDA LEONG MD;*EndCC*
--- NOTE | 2018-04-11 20:25 | DS ---
Date/Time of Note Date/Time of Note DATE: 04/11/18 TIME: 20:23 Discharge Summary Admission/Discharge Info Admit Date/Time Apr 09, 2018 at 06:42 Discharge Date/Time Apr 11, 2018 at 15:00 Patient Condition: Stable Hx of Present Illness The patient is a 57-year-old female well known to me from previous admission. The patient has history of rectal cancer status post surgery as well as well as chemo and radiation. The patient has a colostomy. The patient also has history of hepatitis C and history of pancytopenia. The patient was seen by Dr. Cook as an outpatient for suspicious right thyroid nodule. FNAC came back as suspicious. The patient was brought into hospital today and underwent right thyroid lobectomy. The patient has significant postoperative pain and is being admitted for further evaluation and management. The patient's margins intraoperatively were clear. The patient denied any chest pain or shortness of breath. No history of fever or chills. No history of nausea, vomiting. No history of abdominal pain. No history of focal weakness. Hospital Course 1. Suspicious right thyroid nodule, status post right thyroid lobectomy. 2. Rectal cancer, status post proctosigmoidectomy and colostomy. 3. Chronic hepatitis C. 4. Chronic thrombocytopenia. Plan of care discussed with Dr. Thurman. Home Meds Active Scripts Hydrocodone Bit-Acetaminophen (Hydrocodone Bit-APAP) 5-325MG Tablet, 1 TAB PO Q4H PRN for MODERATE PAIN LEVEL 4-6, #20 TAB Prov:BRITTANEY REESE 04/11/18 Reported Medications Buprenorphine (Butrans) 1 Each Patch.tdwk, 1 EACH TD Q7DAYS 04/09/18 Docusate Sodium* (Colace*) 100 Mg Capsule, 100 MG PO QAM, #30 CAP 04/09/18 Omeprazole* (Omeprazole*) 40 Mg Capsule.dr, 40 MG PO AC BREAKFAST, #30 CAP 04/09/18 Discontinued Reported Medications Omeprazole* (Omeprazole*) 40 Mg Capsule.dr, 40 MG PO DAILY, #30 CAP 11/14/16 Morphine Sulfate* (Ms Contin*) 15 Mg Tablet.sa, 15 MG PO DAILY, TAB 11/14/16 Elbasvir/Grazoprevir (Zepatier 50-100 mg Tablet) 1 Each Tablet, 1 EACH PO DAILY, TAB 11/14/16 Docusate Sodium* (Docusate Sodium*) 100 Mg Capsule, 100 MG PO BID for CONSTIPATION, #60 CAP 11/14/16 Lorazepam* (Lorazepam*) 1 Mg Tablet, 1 MG PO HS PRN for ANXIETY, #30 TAB 11/14/16 Lorazepam* (Lorazepam*) 0.5 Mg Tablet, 0.5 MG PO BID, TAB 11/14/16 [Colace] No Conflict Check 03/16/16 [Lactulose] No Conflict Check 03/16/16 [Zofran] No Conflict Check 03/16/16 [Morphine] No Conflict Check 03/16/16 Multivitamins* (Once Daily*) 1 Tab Tablet, 1 TAB PO DAILY, TAB 07/21/15 Omeprazole* (Omeprazole*) 40 Mg Capsule.dr, 40 MG PO DAILY, #30 CAP 05/18/15 Discontinued Scripts Hydrocodone/Acetaminophen ([place]ilton 10-325 Tablet) 1 Each Tablet, 1 TAB PO Q6H PRN for PAIN, #4 TAB Prov:PEPITO KEN MD 07/04/17 Ciprofloxacin Hcl* (Ciprofloxacin Hcl*) 500 Mg Tablet, 500 MG PO BID for 10 Days, TAB Prov:MUNDO DAVIS PA-C 08/18/16 Ibuprofen* (Motrin*) 600 Mg Tab, 600 MG PO Q6, #30 TAB Prov:MUNDO DAVIS PA-C 08/18/16 Follow-up Plan follow-up with Dr. Cook in 1-2 weeks. Primary Care Provider Not On Staff Doctor Time spent on discharge: > 30 minutes Pending Labs Laboratory Tests Test 04/11/18 04:27 White Blood Count 2.3 10^3/ul (4.8-10.8) Red Blood Count 4.11 10^6/ul (4.20-5.40) Hemoglobin 11.5 g/dl (12.0-16.0) Hematocrit 35.3 % (37.0-47.0) Mean Corpuscular Volume 85.9 fl (82.0-101.0) Mean Corpuscular Hemoglobin 28.0 pg (29.0-33.0) Mean Corpuscular Hemoglobin Concent 32.6 g/dl (32.0-37.0) Red Cell Distribution Width 13.7 % (11.5-14.5) Platelet Count 52 10^3/UL (140-415) Mean Platelet Volume 11.2 fl (7.4-10.4) Immature Granulocytes % 0.400 % (0.001-0.429) Neutrophils % 45.8 % (39.0-77.0) Lymphocytes % 35.3 % (15.0-51.0) Monocytes % 10.3 % (0.0-11.0) Eosinophils % 7.8 % (0.0-7.0) Basophils % 0.4 % (0.0-2.0) Nucleated Red Blood Cells % 0.0 /100WBC (0.0-0.0) Immature Granulocytes # 0.010 10^3/ul (0.0-0.031) Neutrophils # 1.1 10^3/ul (1.6-7.5) Lymphocytes # 0.8 10^3/ul (0.8-2.9) Monocytes # 0.2 10^3/ul (0.3-0.9) Eosinophils # 0.2 10^3/ul (0.0-0.5) Basophils # 0.0 10^3/ul (0.0-0.1) Nucleated Red Blood Cells # 0.0 10^3/ul (0.0-0.0) BRITTANEY REESE Apr 11, 2018 20:25
== END 2018-04-11 15:00 | disposition home or self-care (01) | DRG 627 ==
LOC: REC 04-09 06:42 → MS1 04-09 12:43
PROVIDERS: ADMIT Surgery Surgical Oncology; ATTEND Surgery Surgical Oncology
PROC: 0GBH0ZX Excision of Right Thyroid Gland Lobe, Open Approach, Diagnostic (ICD-10-PCS; principal; 2018-04-10)
DX: C73 Malignant neoplasm of thyroid gland (principal); Z85.048 Personal history of other malignant neoplasm of rectum, rectosigmoid junction, and anus; B18.2 Chronic viral hepatitis C; Z90.49 Acquired absence of other specified parts of digestive tract; D69.6 Thrombocytopenia, unspecified; Z93.3 Colostomy status; Z92.21 Personal history of antineoplastic chemotherapy; Z92.3 Personal history of irradiation
CPT/HCPCS: 80053; 82310; 84703; 85025; 88307; J0360; J0690; J2175; J2250; J2270; J2405; J3010; J3480

== ENCOUNTER 2018-05-28 15:33 | Inpatient (IN) | payer OTHER ==
[~2018-05-28] VITALS: Ht 170.2 cm; Wt 76.0 kg
[~2018-05-28 15:33] MED LIST changes: +BUPR1PAT10 TD; -CIPR500T4 PO; -COLACE; +DOCU-144 PO; -DOCU-159 PO; -ELBA1TAB PO; +HYDR-3601 PO; -HYDR-3980 PO; -IBUP-1542 PO; -LACTULOSE; -LORA0.5T PO; -LORA1TAB PO; -MORP15TA92 PO; -MORPHINE; -MULT-552 PO; -ZOFRAN
[2018-05-28] MEDS ORDERED: ASPIRIN 325 MG TAB PO STA (19:28)
[2018-05-28] MEDS ORDERED: NITROGLYCERIN 2% 1 GM OINT PKT TD STA (19:28)
[2018-05-28] MEDS ORDERED: ONDANSETRON 4 MG INJ IV STA (20:41)
[2018-05-28] MEDS ORDERED: morphine 4 MG/ML VIAL IV STA (20:41)
--- NOTE | 2018-05-28 21:24 | ERD ---
ER Documentation Chief Complaint Chief Complaint dizziness, chest pain, sob and nausea x2hrs HPI This is a 57-year-old female who is here for chest pain. She says that she is she is having pain similar to her prior [place] that she had 2012 where she had a angioplasty. Pain is located in the substernal chest region with some radiation to the left scapula with some shortness of breath. She took a nitroglycerin at home but it did not help her pain. She also complains of nausea but no vomiting and some dizziness which is typical with her pain that she has with angina ROS All systems reviewed and are negative except as per history of present illness. Medications Home Meds Active Scripts Hydrocodone Bit-Acetaminophen (Hydrocodone Bit-APAP) 5-325MG Tablet, 1 TAB PO Q4H PRN for MODERATE PAIN LEVEL 4-6, #20 TAB Prov:BRITTANEY REESE 04/11/18 Reported Medications Buprenorphine (Butrans) 1 Each Patch.tdwk, 1 EACH TD Q7DAYS 04/09/18 Docusate Sodium* (Colace*) 100 Mg Capsule, 100 MG PO QAM, #30 CAP 04/09/18 Omeprazole* (Omeprazole*) 40 Mg Capsule.dr, 40 MG PO AC BREAKFAST, #30 CAP 04/09/18 Allergies Allergies: Coded Allergies: No Known Drug Allergies (Verified Allergy, Severe, 04/09/18) acetaminophen (Verified Adverse Reaction, Severe, CANNOT TAKE BEACUSE OF CIRRHOSIS, 04/09/18) ibuprofen (Verified Adverse Reaction, Severe, CANNOT TAKE BEACUSE CAUSES GI BLEED, 04/09/18) PMhx/Soc History of Surgery: Yes (COLON RESCECTION, COLOSTOMY, CHOLECYSTECTOMY,CSECTION, HERNIA) Anesthesia Reaction: No Hx Neurological Disorder: No Hx Respiratory Disorders: No Hx Cardiac Disorders: Yes (Heart attack ) Hx Psychiatric Problems: No Hx Miscellaneous Medical Probl: Yes (Thyroid sx) Hx Alcohol Use: No Hx Substance Use: No Hx Tobacco Use: No Smoking Status: Never smoker FmHx Family History: No coronary disease Physical Exam Vitals Vital Signs Date Temp Pulse Resp B/P (MAP) Pulse Ox O2 O2 Flow FiO2 Time Delivery Rate 05/28/18 65 17 128/92 98 Room Air 19:10 (104) 05/28/18 97.9 88 18 122/57 96 15:43 (78) Physical Exam Const: Well-developed, well-nourished Head: Atraumatic, normocephalic Eyes: Normal Conjunctiva, PERRLA, EOMI, normal sclera, no nystagmus ENT: Normal External Ears, Nose and Mouth, moist mucus membranes. Neck: Full range of motion. No meningismus, no lymphadenopathy. Resp: Clear to auscultation bilaterally, no wheezing, rhonchi, rales Cardio: Regular rate and rhythm, no murmurs, S1 S2 present Abd: Soft, non tender x 4, non distended. Normal bowel sounds, no guarding or rebound, no pulsitile abdominal masses or bruits Skin: No petechiae or rashes, no ecchymosis , no maculopapular rash Back: No midline or flank tenderness Ext: No cyanosis, or edema, FROM x 4, normal inspection, neurovascularly intact x 4 Neur: Awake and alert, STR 5/5 x 4, sensation intact x 4, no focal findings, cerebellum intact Psych: Normal Mood and Affect Result Diagram: 05/28/18193505/28/181935 Results 24 hrs Laboratory Tests Test 05/28/18 19:36 White Blood Count 3.3 10^3/ul Red Blood Count 4.75 10^6/ul Hemoglobin 13.2 g/dl Hematocrit 40.5 % Mean Corpuscular Volume 85.3 fl Mean Corpuscular Hemoglobin 27.8 pg Mean Corpuscular Hemoglobin Concent 32.6 g/dl Red Cell Distribution Width 13.7 % Platelet Count 73 10^3/UL Mean Platelet Volume 10.6 fl Immature Granulocytes % 0.000 % Neutrophils % % Lymphocytes % % Monocytes % % Eosinophils % % Basophils % % Nucleated Red Blood Cells % 0.0 /100WBC Immature Granulocytes # 0.000 10^3/ul Neutrophils # 10^3/ul Lymphocytes # 10^3/ul Monocytes # 10^3/ul Eosinophils # 10^3/ul Basophils # 10^3/ul Nucleated Red Blood Cells # 10^3/ul Sodium Level 141 mmol/L Potassium Level 4.0 mmol/L Chloride Level 107 mmol/L Carbon Dioxide Level 25 mmol/L Anion Gap 9 Blood Urea Nitrogen 8 mg/dl Creatinine 0.43 mg/dl Est Glomerular Filtrat Rate mL/min > 60 mL/min Glucose Level 87 mg/dl Calcium Level 9.8 mg/dl Troponin I < 0.012 ng/ml Current Medications Medications Dose Sig/Tyler Start Time Status Last (Trade) Ordered Route PRN Stop Time Admin Dose Reason Admin Aspirin 325 mg ONCE STAT 05/28/18 DC 05/28/18 (Aspirin) PO 19:28 19:43 05/28/18 19:34 1 inch ONCE STAT 05/28/18 DC 05/28/18 Nitroglycerin TD 19:28 19:43 05/28/18 19:34 (Nitroglyceri n 2% Oint) Morphine 4 mg ONCE STAT 05/28/18 DC 05/28/18 Sulfate IV 20:41 20:48 (morphine) 05/28/18 20:42 Ondansetron 4 mg ONCE STAT 05/28/18 DC 05/28/18 HCl (Zofran IV 20:41 20:47 Inj) 05/28/18 20:42 Procedures/MDM MR #: [id number] DOS: 05/28/18 192 Ordering MD: MESHA BRUNER DO Location: E/R Room/Bed: PROCEDURE: XR Chest. CLINICAL INDICATION: chest pain TECHNIQUE: Single frontal view of the chest was obtained COMPARISON: CR CHEST 10/10/2015 FINDINGS: The heart and mediastinum are within normal limits. The lungs are clear. There is no pleural effusion or pneumothorax. RPTAT: AA IMPRESSION: No acute disease. .Xavi Shirley MD, MD Date Time Electronically viewed and signed by .Xavi Shirley MD, on 05/28/2018 19:57 .S/ CC: MESHA BRUNER DO [id number] EKG: Rate/Rhythm: Normal sinus rhythm, right axis deviation QRS, ST, QT: NORMAL MA, QRS, QT] Impression: Abnormal EKG Cardiac Admit MDM: Patient's symptoms are concerning for cardiac cause will require inpatient workup and continuous monitoring. Further w/u for ischemia, arrhythmia, PE or dissection will be deferred to the inpatient team. Departure Diagnosis: Primary Impression: Chest pain Chest pain type: unspecified Qualified Codes: R07.9 - Chest pain, unspecified Condition: Stable MESHA BRUNER DO May 28, 2018 21:24
[2018-05-28] MEDS ORDERED: ALBU18HF INHALATION (22:04)
[2018-05-28] MEDS ORDERED: ASPI-535 PO (22:04)
[2018-05-28] MEDS ORDERED: NITR0.4T39 SL (22:04)
[2018-05-28] MEDS ORDERED: LORA0.5T PO (22:04)
[2018-05-28] MEDS ORDERED: MULTI PO (22:04)
[2018-05-28] MEDS ORDERED: LACT-121 (22:04)
[2018-05-29] MEDS ORDERED: ACETAMINOPHEN 325 MG TAB PO PRN (01:00)
[2018-05-29] MEDS ORDERED: NITROGLYCERIN (SL) 0.4 MG TAB SL PRN (01:00)
[2018-05-29] MEDS: ONDANSETRON 4 MG INJ IV PRN ×3 (01:41→18:01)
[2018-05-29] MEDS: morphine 4 MG/ML VIAL IV PRN ×4 (01:41→17:15)
[2018-05-29] MEDS: ALBUTEROL HFA 8 GM INHALER INH SCH ×5 (05:00→17:24)
[2018-05-29] MEDS ORDERED: ENOXAPARIN 40 MG/0.4 ML SYG SC ONE (09:00)
[2018-05-29] MEDS ORDERED: ASPIRIN 325 MG TAB PO ONE (09:00)
[2018-05-29] MEDS ORDERED: PANTOPRAZOLE (EC) 40 MG TAB PO ONE (09:00)
[2018-05-29] MEDS: DOCUSATE SODIUM 100 MG CAP PO SCH (10:11)
--- NOTE | 2018-05-29 14:46 | RADRPT ---
Echocardiogram Report Patient Name: Dyan DANIELS ID: [id number] : 1960 (57y 7m)Study Date: 05/29/2018 7:07:44 AM Gender: FAccession #: [id number] Tech: Sonia Anderson [facility]AL Location: [facility] Ref.Physician: DAVI KAHN Height(Cm): BSA: Weight(Kg): Quality: AdequateAccount #: Procedures: Echocardiographic Report: Transthoracic echocardiogram with complete 2D, M-Mode, and doppler examination. Indications: Chest Pain. Measurements: 2D/M Mode Doppler Measurement Value Normal Range Measurement Value Normal Range LVIDd 2D 5.1 [ 3.8 - 5.2 ] cm AV Peak Juan Luis 1.3 [ 100.0 - 170.0 ] cm/sec LVIDs 2D 3.1 [ 2.2 - 3.5 ] cm AV Peak PG 6.0 [ 2.0 - 9.0 ] mmHg LVPWd 2D 1.1 [ 0.6 - 0.9 ] cm LVOT Peak Juan Luis 0.8 [ 70.0 - 110.0 ] cm/sec IVSd 2D 1.0 [ 0.6 - 0.9 ] cm LVOT Peak PG 3.0 [ 2.0 - 6.0 ] mmHg AoR Diam 2D 2.5 [ 2.3 - 3.1 ] cm MV E Peak Juan Luis 0.7 [ 60.0 - 130.0 ] cm/sec EDV 2D 122.0 [ 46.0 - 106.0 ] ml MV A Peak Juan Luis 0.6 [ 100.0 - 120.0 ] cm/sec ESV 2D 37.9 [ 14.0 - 42.0 ] ml MV E/A 1.1 [ 0.8 - 1.5 ] ratio EF 2D 68.9 [ 54.0 - 74.0 ] percent MV Decel Time 261 [ 104 - 258 ] msec LA Dimen 2D 3.2 [ 2.7 - 3.8 ] cm Lat E` Juan Luis 0.1 [ 10.0 - 15.0 ] cm/sec Lateral E/E` 5.7 [ 1.0 - 2.0 ] ratio MV E/A 1.1 [ 0.8 - 1.5 ] ratio TR Peak Juan Luis 2.1 [ 100.0 - 280.0 ] cm/sec TR Peak PG 18.0 mmHg RVSP 33.0 [ 10.0 - 36.0 ] mmHg RA Pressure 15.0 mmHg Findings: Left Ventricle: Normal left ventricular cavity size. Mild concentric left ventricular hypertrophy. Mild global left ventricular systolic dysfunction. Ejection fraction is visually estimated at 45-50 %. Tissue Doppler/Mitral Doppler indices are consistent with impaired relaxation (Stage I diastolic dysfunction). Right Ventricle: Normal right ventricular size. Normal right ventricular systolic function. Left Atrium: The left atrium is normal in size. Right Atrium: The right atrium is normal in size. Mitral Valve: Normal appearance of the mitral valve. Mild mitral annular calcification. Trace mitral regurgitation. Aortic Valve: Normal appearance of the aortic valve. No significant aortic stenosis or insufficiency. Tricuspid Valve: Normal appearance of the tricuspid valve. Estimated peak PA systolic pressure 33 mmHg. There is trace tricuspid regurgitation. Pulmonic Valve: Pulmonic valve not well visualized. Pericardium: Normal pericardium with no significant pericardial effusion. Aorta: Normal aortic root. IVC: Dilated IVC without respiratory collapse consistent with elevated right atrial pressure. Conclusions: Normal left ventricular cavity size. Mild concentric left ventricular hypertrophy. Mild global left ventricular systolic dysfunction. Ejection fraction is visually estimated at 45-50 %. Tissue Doppler/Mitral Doppler indices are consistent with impaired relaxation (Stage I diastolic dysfunction). Normal appearance of the mitral valve. Mild mitral annular calcification. Trace mitral regurgitation. Normal appearance of the tricuspid valve. Estimated peak PA systolic pressure 33 mmHg. There is trace tricuspid regurgitation. Electronically Signed By: Justino Rodrigues 2018-05-29 14:46:05 PDT
[2018-05-29 16:20] VITALS: PULSE 58
[2018-05-29 16:23] VITALS: Ht 170.2 cm; Wt 76.0 kg
[2018-05-29] MEDS ORDERED: LORAZEPAM 0.5 MG TAB PO PRN (18:30)
[2018-05-29] MEDS ORDERED: METOCLOPRAMIDE 10 MG INJ IV PRN (19:00)
--- NOTE | 2018-05-29 19:18 | HP ---
Date/Time of Note Date/Time of Note DATE: 05/29/18 TIME: 19:06 Assessment/Plan Lines/Catheters IV Catheter Type (from Nrsg): Saline Lock Urinary Cath still in place: No Assessment/Plan Assessment/Plan - Chest Pain r/ ACS - admit to Tele - cardiology consult - 2-D echo - CHD panel - CBC - CMP - TSH - MSO4- pain control; Zofran for nausea - see admission orders - Patient seen in collaboration with Dr Gross. staff. Result Diagram: 05/28/18193505/28/181935 Results 24hrs Laboratory Tests Test 05/28/18 19:36 05/29/18 06:06 05/29/18 13:04 05/29/18 18:08 White Blood Count 3.3 #L Red Blood Count 4.75 Hemoglobin 13.2 Hematocrit 40.5 Mean Corpuscular 85.3 Volume Mean Corpuscular 27.8 L Hemoglobin Mean Corpuscular 32.6 Hemoglobin Concent Red Cell 13.7 Distribution Width Platelet Count 73 #L Mean Platelet Volume 10.6 H Immature 0.000 L Granulocytes % Neutrophils % Segmented 40 Neutrophils % (Manual) Lymphocytes % Lymphocytes % 48 (Manual) Monocytes % Monocytes % (Manual) 5 Eosinophils % Eosinophils % 7 (Manual) Basophils % Nucleated Red Blood 0.0 Cells % Immature 0.000 Granulocytes # Neutrophils # Lymphocytes (Manual) 1.5 Lymphocytes # Monocytes # Monocytes # (Manual) 0.1 L Eosinophils # Basophils # Nucleated Red Blood Cells # Platelet Estimate DECREASED Giant Platelets 1 H Sodium Level 141 Potassium Level 4.0 Chloride Level 107 Carbon Dioxide Level 25 Anion Gap 9 Blood Urea Nitrogen 8 Creatinine 0.43 L Est Glomerular > 60 Filtrat Rate mL/min Glucose Level 87 Calcium Level 9.8 Troponin I < 0.012 < 0.012 < 0.012 < 0.012 Triglycerides Level 72 Cholesterol Level 146 LDL Cholesterol, 85 Calculated HDL Cholesterol 47 Cholesterol/HDL 3.1 Ratio HPI/ROS Admit Date/Time Admit Date/Time May 28, 2018 at 21:30 Hx of Present Illness dizziness, chest pain, sob and nausea x2hrs HPI This is a 57-year-old female who is here for chest pain. She says that she is she is having pain similar to her prior CA that she had 2011 where she had a angioplasty. Pain is located in the substernal chest region with some radiation to the left scapula with some shortness of breath. She took a nitroglycerin at home but it did not help her pain. She also complains of nausea but no vomiting and some dizziness which is typical with her pain that she has with angina ROS All systems reviewed and are negative except as per history of present illness. Medications Home Meds Active Scripts Hydrocodone Bit-Acetaminophen (Hydrocodone Bit-APAP) 5-325MG Tablet, 1 TAB PO Q4H PRN for MODERATE PAIN LEVEL 4-6, #20 TAB Prov:BRITTANEY REESE 04/11/18 Reported Medications Buprenorphine (Butrans) 1 Each Patch.tdwk, 1 EACH TD Q7DAYS 04/09/18 Docusate Sodium* (Colace*) 100 Mg Capsule, 100 MG PO QAM, #30 CAP 04/09/18 Omeprazole* (Omeprazole*) 40 Mg Capsule.dr, 40 MG PO AC BREAKFAST, #30 CAP 04/09/18 Allergies Allergies: Coded Allergies: No Known Drug Allergies (Verified Allergy, Severe, 04/09/18) acetaminophen (Verified Adverse Reaction, Severe, CANNOT TAKE BEACUSE OF CIRRHOSIS, 04/09/18) ibuprofen (Verified Adverse Reaction, Severe, CANNOT TAKE BEACUSE CAUSES GI BLEED, 04/09/18) PMhx/Soc History of Surgery: Yes (COLON RESCECTION, COLOSTOMY, CHOLECYSTECTOMY,CSECTION, HERNIA) Anesthesia Reaction: No Hx Neurological Disorder: No Hx Respiratory Disorders: No Hx Cardiac Disorders: Yes (Heart attack ) Hx Psychiatric Problems: No Hx Miscellaneous Medical Probl: Yes (Thyroid sx) Hx Alcohol Use: No Hx Substance Use: No Hx Tobacco Use: No Smoking Status: Never smoker FmHx Family History: No coronary disease PMH/Family/Social Past Medical History Medications Current Medications Ondansetron HCl (Zofran Inj) 4 mg ER BRIDGE PRN IV NAUSEA/VOMITING Last administered on 05/29/18at 18:01; Admin Dose 4 MG; Start 05/28/18 at 21:30; Stop 05/29/18 at 21:29 Albuterol (Ventolin Hfa) 2 puff Q4H INH Last administered on 05/29/18at 17:24; Admin Dose 2 PUFF; Start 05/29/18 at 01:00 Docusate Sodium (Colace) 100 mg QAM PO Last administered on 05/29/18at 10:11; Admin Dose 100 MG; Start 05/29/18 at 09:00 Nitroglycerin (Nitroglycerin (Sl Tab) 0.4 Mg) 1 tab [id number] PRN SL CHEST PAIN; Start 05/29/18 at 01:00 Morphine Sulfate (morphine) 4 mg Q4 PRN IV PAIN LEVEL 6-10 Last administered on 05/29/18at 17:15; Admin Dose 4 MG; Start 05/29/18 at 01:00 Acetaminophen (Tylenol Tab) 650 mg Q4 PRN PO FEVER GREATER THAN 100.6; Start 05/29/18 at 01:00 Acetaminophen/ Hydrocodone Bitart ([place] (5/325)) 1 tab Q4H PRN PO MODERATE PAIN LEVEL 4-6; Start 05/29/18 at 18:30 Lorazepam (Ativan) 0.5 mg HS PRN PO ANXIETY; Start 05/29/18 at 18:30 Multivitamins Therapeutic (Theragran) 1 tab DAILY PO ; Start 05/30/18 at 09:00 Pantoprazole (Protonix Tab) 40 mg AC BREAKFAST PO ; Start 05/30/18 at 07:25 Metoclopramide HCl (Reglan) 10 mg Q6H PRN IV NAUSEA AND/OR VOMITING; Start 05/29/18 at 19:00 Aspirin (Aspirin) 81 mg DAILY PO ; Start 05/30/18 at 09:00 Coded Allergies: No Known Drug Allergies (Verified Allergy, Severe, 04/09/18) acetaminophen (Verified Adverse Reaction, Severe, CANNOT TAKE BEACUSE OF CIRRHOSIS, 04/09/18) ibuprofen (Verified Adverse Reaction, Severe, CANNOT TAKE BEACUSE CAUSES GI BLEED, 04/09/18) Social History Smoking Status: Never smoker Exam/Review of Systems Vital Signs Vitals Vital Signs Date Temp Pulse Resp B/P (MAP) Pulse Ox O2 O2 Flow FiO2 Time Delivery Rate 05/29/18 58 16:20 05/29/18 100/57 99 Nasal 3.0 14:45 (71) Cannula 05/28/18 97.9 15:43 Exam Constitutional: alert, well developed Eyes: nl lids, nl sclera ENMT: nl external ears & nose Neck: non-tender Respiratory: clear to auscultation Cardiovascular: nl pulses, other (s1s2) Gastrointestinal: soft, non-tender Musculoskeletal: nl extremities to inspection Extremities: normal pulses Neurological: nl speech, other (alert/responsive) Lymph: nontender Additional Comments PROCEDURE: XR Chest. CLINICAL INDICATION: chest pain TECHNIQUE: Single frontal view of the chest was obtained COMPARISON: CR CHEST 10/10/2015 FINDINGS: The heart and mediastinum are within normal limits. The lungs are clear. There is no pleural effusion or pneumothorax. CAMILO RAMSAY May 29, 2018 19:16
[2018-05-29 20:00] VITALS: BP 113/69; PULSE 60; PULSE 75; RESP 18
[2018-05-30] VITALS (10 sets, daily range): BP systolic 96–126; BP diastolic 56–68; PULSE 61–76; RESP 18–20
[2018-05-30] MEDS: ASPIRIN 81 MG TAB PO SCH (08:38)
[2018-05-30] MEDS: MULTIVITAMINS THERAPEUTIC TAB PO SCH (08:38)
[2018-05-30] MEDS: DOCUSATE SODIUM 100 MG CAP PO SCH (08:38)
[2018-05-30] MEDS: PANTOPRAZOLE (EC) 40 MG TAB PO SCH (08:38)
[2018-05-30] MEDS: ALBUTEROL HFA 8 GM INHALER INH SCH ×4 (09:00→21:26)
[2018-05-30] MEDS: HYDROCODONE/APAP (5/325) TAB PO PRN ×4 (09:03→21:26)
--- NOTE | 2018-05-30 19:36 | PN ---
Date/Time of Note Date/Time of Note DATE: 05/30/18 TIME: 19:36 Assessment/Plan VTE Prophylaxis Risk score (from Nsg)>0 risk: 1 SCD applied (from Nsg): Yes Lines/Catheters IV Catheter Type (from Nrsg): Saline Lock Urinary Cath still in place: No Assessment/Plan Assessment/Plan - Chest Pain r/ ACS - cardiology consult - 2-D echo - CHD panel - CBC - CMP - TSH - MSO4- pain control; Zofran for nausea - see admission orders - Patient seen in collaboration with Dr Gross. staff. Result Diagram: 05/30/1803 05/30/18 0703 Results 24hrs Laboratory Tests Test 05/30/18 07:03 White Blood Count 3.4 L Red Blood Count 4.40 Hemoglobin 12.4 Hematocrit 38.6 Mean Corpuscular Volume 87.7 Mean Corpuscular Hemoglobin 28.2 L Mean Corpuscular Hemoglobin Concent 32.1 Red Cell Distribution Width 13.4 Platelet Count 60 L Mean Platelet Volume 10.5 H Immature Granulocytes % 0.300 Neutrophils % 55.9 Lymphocytes % 26.8 Monocytes % 8.5 Eosinophils % 8.2 H Basophils % 0.3 Nucleated Red Blood Cells % 0.0 Immature Granulocytes # 0.010 Neutrophils # 1.9 Lymphocytes # 0.9 Monocytes # 0.3 Eosinophils # 0.3 Basophils # 0.0 Nucleated Red Blood Cells # 0.0 Sodium Level 141 Potassium Level 4.1 Chloride Level 107 Carbon Dioxide Level 26 Anion Gap 8 Blood Urea Nitrogen 17 # Creatinine 0.47 Est Glomerular Filtrat Rate mL/min > 60 Glucose Level 106 Calcium Level 9.5 Triglycerides Level 85 Cholesterol Level 146 LDL Cholesterol, Calculated 84 HDL Cholesterol 45 Cholesterol/HDL Ratio 3.2 Thyroid Stimulating Hormone (TSH) 1.030 Exam/Review of Systems Exam Vitals Vital Signs Date Temp Pulse Resp B/P (MAP) Pulse Ox O2 O2 Flow FiO2 Time Delivery Rate 05/30/18 66 16:28 05/30/18 98.6 20 103/56 96 Room Air 15:56 (72) 05/29/18 3.0 14:45 Results Results 24hrs Laboratory Tests Test 05/30/18 07:03 White Blood Count 3.4 L Red Blood Count 4.40 Hemoglobin 12.4 Hematocrit 38.6 Mean Corpuscular Volume 87.7 Mean Corpuscular Hemoglobin 28.2 L Mean Corpuscular Hemoglobin Concent 32.1 Red Cell Distribution Width 13.4 Platelet Count 60 L Mean Platelet Volume 10.5 H Immature Granulocytes % 0.300 Neutrophils % 55.9 Lymphocytes % 26.8 Monocytes % 8.5 Eosinophils % 8.2 H Basophils % 0.3 Nucleated Red Blood Cells % 0.0 Immature Granulocytes # 0.010 Neutrophils # 1.9 Lymphocytes # 0.9 Monocytes # 0.3 Eosinophils # 0.3 Basophils # 0.0 Nucleated Red Blood Cells # 0.0 Sodium Level 141 Potassium Level 4.1 Chloride Level 107 Carbon Dioxide Level 26 Anion Gap 8 Blood Urea Nitrogen 17 # Creatinine 0.47 Est Glomerular Filtrat Rate mL/min > 60 Glucose Level 106 Calcium Level 9.5 Triglycerides Level 85 Cholesterol Level 146 LDL Cholesterol, Calculated 84 HDL Cholesterol 45 Cholesterol/HDL Ratio 3.2 Thyroid Stimulating Hormone (TSH) 1.030 Medications Medication Current Medications Albuterol (Ventolin Hfa) 2 puff Q4H INH Last administered on 05/30/18 17:45; Admin Dose 2 PUFF; Start 05/29/18 at 01:00 Docusate Sodium (Colace) 100 mg QAM PO Last administered on 05/30/18 08:38; Admin Dose 100 MG; Start 05/29/18 at 09:00 Nitroglycerin (Nitroglycerin (Sl Tab) 0.4 Mg) 1 tab [id number] PRN SL CHEST PAIN; Start 05/29/18 at 01:00 Morphine Sulfate (morphine) 4 mg Q4 PRN IV PAIN LEVEL 6-10 Last administered on 05/29/18 17:15; Admin Dose 4 MG; Start 05/29/18 at 01:00 Acetaminophen (Tylenol Tab) 650 mg Q4 PRN PO FEVER GREATER THAN 100.6; Start 05/29/18 at 01:00 Acetaminophen/ Hydrocodone Bitart ([place] (5/325)) 1 tab Q4H PRN PO MODERATE PAIN LEVEL 4-6 Last administered on 05/30/18 17:47; Admin Dose 1 TAB; Start 05/29/18 at 18:30 Lorazepam (Ativan) 0.5 mg HS PRN PO ANXIETY; Start 05/29/18 at 18:30 Multivitamins Therapeutic (Theragran) 1 tab DAILY PO Last administered on 05/30/18 08:38; Admin Dose 1 TAB; Start 05/30/18 at 09:00 Pantoprazole (Protonix Tab) 40 mg AC BREAKFAST PO Last administered on 05/30/18 08:38; Admin Dose 40 MG; Start 05/30/18 at 07:25 Metoclopramide HCl (Reglan) 10 mg Q6H PRN IV NAUSEA AND/OR VOMITING; Start 05/29/18 at 19:00 Aspirin (Aspirin) 81 mg DAILY PO Last administered on 05/30/18 08:38; Admin Dose 81 MG; Start 05/30/18 at 09:00 Isosorbide Dinitrate (Isordil) 10 mg TID PO ; Start 05/30/18 at 21:00 CAMILO RAMSAY May 30, 2018 19:36
[2018-05-30] MEDS: ISOSORBIDE DINITRATE 10 MG TAB PO SCH (21:00)
[2018-05-31] VITALS (9 sets, daily range): BP systolic 94–125; BP diastolic 54–68; PULSE 51–69; RESP 18–22
[2018-05-31] MEDS: ALBUTEROL HFA 8 GM INHALER INH SCH ×7 (00:18→21:03)
--- NOTE | 2018-05-31 00:57 | CONS ---
DATE OF ADMISSION: 05/28/2018 DATE OF CONSULTATION: 05/30/2018 TYPE OF CONSULTATION: Cardiology. REASON FOR CONSULTATION: Chest pain, assess for acute coronary syndrome. REQUESTING PHYSICIAN: Clay Thurman MD HISTORY OF PRESENT ILLNESS: Ms. Spring is a 57-year-old female with a history of hypertension, prior myocardial infarction, PTCA and stent placement in 2011, who presents with complaints of substernal chest pain, describes a pressure-like sensation with radiation towards her left shoulder associated w ith shortness of breath. Given these complaints, the patient subsequently presented to the emergency department where upon arrival, temperature of 97.9, blood pressure 122/57, pulse 88, respiratory rat e 18 and satting 96%. The patient's labs revealed a white blood count of 3.3, hemoglobin of 13.2, pl atelet count of 73, a sodium of 141, potassium of 4.0, creatinine of 0.43, BUN of 8 and troponin nega tive. The patient underwent a chest x-ray revealing no acute cardiopulmonary abnormalities. The pat ient's electrocardiogram reveals sinus bradycardia, rate of 58, normal axis and intervals, lateral Q' s. The patient subsequently has been admitted to the floor and since admit to floor has had some rec urrence of chest pain. The patient has had negative troponins x3. PAST MEDICAL HISTORY: As above in HPI. MEDICATIONS CURRENTLY IN HOSPITAL: 1. Multivitamins. 2. Aspirin 81 mg daily. 3. Protonix 40 mg daily. 4. Reglan. 5. [place]. 6. Ativan. 7. Colace. 8. Albuterol. 9. ____. 10. Morphine. 11. Tylenol. ALLERGIES: NO KNOWN DRUG ALLERGIES. SOCIAL HISTORY: No current tobacco, ETOH or illicit drug use. FAMILY HISTORY: No history of sudden cardiac or early CAD. REVIEW OF SYSTEMS: As above in HPI. CONSTITUTIONAL: No fevers or chills. PULMONARY: Shortness of breath. CARDIOVASCULAR: Chest pain. GASTROINTESTINAL: No vomiting. GENITOURINARY: No hematuria. MUSCULOSKELETAL: Degenerative joint disease. PSYCHIATRIC: The patient denies depression. NEUROLOGIC: No documented history of CVA. ENDOCRINE: No documented history of diabetes mellitus. PHYSICAL EXAMINATION: VITAL SIGNS: Temperature of 97.9, blood pressure 103/56, pulse 66, respiratory rate 20, sat 96%. GENERAL: The patient is alert, awake, no acute distress. NECK: JVP approximately 8 to 9 cm of water. CHEST: Fair air movement throughout. HEART: Regular rate and rhythm. Normal S1, S2, I/ systolic murmur. Nondisplaced PMI. ABDOMEN: Positive bowel sounds, soft. EXTREMITIES: No significant pitting edema, 1+ pulses bilateral posterior tibial. LABORATORY DATA: Most recent from today, sodium 141, potassium 4.0, creatinine of ____, BUN 17. Whi te blood cell count 3.4, hemoglobin 12.4, platelet count of 60. IMAGING STUDIES: As above in HPI with a chest x-ray from the revealing no acute cardiopulmonary abnormalities. ECG: As above in HPI. No further electrocardiograms for my review at this time. IMPRESSION: 1. Chest pain, assess for acute coronary syndrome. 2. Abnormal echocardiogram, assess for acute coronary syndrome. 3. History of stent in 2011. 4. Thrombocytopenia. RECOMMENDATIONS: 1. At this time, would maintain patient on telemetry monitoring to follow rhythm and rate control cl osely. 2. We will continue patient's aspirin for prophylaxis against cardiovascular events. 3. Check a fasting lipid panel for general risk stratification and initiate lipid-lowering medicatio n as necessary. 4. We will initiate the patient on oral nitrates and follow symptomatology. 5. The patient is status post 2D echo interpreted by myself having a mildly depressed EF of 45-50%. 6. Given the patient's history of stent, ongoing chest pain, negative troponins, I believe the patie nt will benefit from further risk stratification inpatient and thus we scheduled for a cardiac stress test to take place first thing in the morning. Thank you for allowing me to take part in the care of this patient. I will continue to follow her cl osely with you. Further recommendations will be made as the patient progresses through his inpatient hospital clinical course. Dictated By: RAVINDER TELLO/JUANITO Conf#: [id number] DID#: [id number] CC: CLAY THURMAN MD;*EndCC*
[2018-05-31] MEDS: HYDROCODONE/APAP (5/325) TAB PO PRN ×5 (01:50→21:40)
[2018-05-31] MEDS: PANTOPRAZOLE (EC) 40 MG TAB PO SCH (06:41)
[2018-05-31] MEDS: DOCUSATE SODIUM 100 MG CAP PO SCH (08:32)
[2018-05-31] MEDS: ASPIRIN 81 MG TAB PO SCH (08:32)
[2018-05-31] MEDS: MULTIVITAMINS THERAPEUTIC TAB PO SCH (08:32)
[2018-05-31] MEDS: ISOSORBIDE DINITRATE 10 MG TAB PO SCH ×3 (09:00→21:04)
[2018-05-31] MEDS ORDERED: REGADENOSON 0.4 MG/5 ML SYG ONE (11:08)
--- NOTE | 2018-05-31 11:53 | CONS ---
Assessment/Plan Assessment/Plan Hospital Course (Demo Recall) IMPRESSION: 1. Chest pain, assess for acute coronary syndrome. 2. Abnormal echocardiogram, assess for acute coronary syndrome. 3. History of stent in 2011. 4. Thrombocytopenia. Recc: -Tele -Continue asa -Continue isordil -lexiscan stress test today Consultation Date/Type/Reason Admit Date/Time May 28, 2018 at 21:30 Initial Consult Date 05/30/18 Type of Consult Cardiology Reason for Consultation chest pain Requesting Provider: DAVI KAHN MD Date/Time of Note DATE: 05/31/18 TIME: 11:47 Exam/Review of Systems Vital Signs Vitals Vital Signs Date Temp Pulse Resp B/P (MAP) Pulse Ox O2 O2 Flow FiO2 Time Delivery Rate 05/31/18 63 08:00 05/31/18 98.0 20 94/54 (67) 96 Room Air 07:47 05/29/18 3.0 14:45 Intake and Output 05/30/18 05/30/18 05/31/18 1515:00 23:00 07:00 IntakeIntake Total 250 ml BalanceBalance 250 ml Exam Exam Review of Systems: CONSTITUTIONAL: No fevers, chills. PULMONARY: No sob CARDIOVASCULAR: intermittent chest pain GASTROINTESTINAL: No nausea/vomiting. GENITOURINARY: No hematuria/dysuria. MUSCULOSKELETAL: No myagias/arthalgias. PSYCHIATRIC: The patient denies depression. NEUROLOGIC: No weakness Constitutional: alert Psych: no complaints Head: normocephalic ENMT: mucosa pink and moist Neck: supple, jvd (9 cm water) Respiratory: clear to auscultation Cardiovascular: regular rate and rhythm Gastrointestinal: soft, non-tender Musculoskeletal: muscle tone (normal) Extremities: edema (none) Neurological: other (No focal deficits) Labs Result Diagram: 05/30/1870205/30/18702 Medications Medications Current Medications Albuterol (Ventolin Hfa) 2 puff Q4H INH Last administered on 05/31/18at 09:07; Admin Dose 2 PUFF; Start 05/29/18 at 01:00 Docusate Sodium (Colace) 100 mg QAM PO Last administered on 05/31/18at 08:32; Admin Dose 100 MG; Start 05/29/18 at 09:00 Nitroglycerin (Nitroglycerin (Sl Tab) 0.4 Mg) 1 tab [id number] PRN SL CHEST PAIN; Start 05/29/18 at 01:00 Morphine Sulfate (morphine) 4 mg Q4 PRN IV PAIN LEVEL 6-10 Last administered on 05/29/18at 17:15; Admin Dose 4 MG; Start 05/29/18 at 01:00 Acetaminophen (Tylenol Tab) 650 mg Q4 PRN PO FEVER GREATER THAN 100.6; Start 05/29/18 at 01:00 Acetaminophen/ Hydrocodone Bitart ([place] (5/325)) 1 tab Q4H PRN PO MODERATE PAIN LEVEL 4-6 Last administered on 05/31/18at 10:49; Admin Dose 1 TAB; Start 05/29/18 at 18:30 Lorazepam (Ativan) 0.5 mg HS PRN PO ANXIETY; Start 05/29/18 at 18:30 Multivitamins Therapeutic (Theragran) 1 tab DAILY PO Last administered on 05/31/18at 08:32; Admin Dose 1 TAB; Start 05/30/18 at 09:00 Pantoprazole (Protonix Tab) 40 mg AC BREAKFAST PO Last administered on 05/31/18at 06:41; Admin Dose 40 MG; Start 05/30/18 at 07:25 Metoclopramide HCl (Reglan) 10 mg Q6H PRN IV NAUSEA AND/OR VOMITING; Start 05/29/18 at 19:00 Aspirin (Aspirin) 81 mg DAILY PO Last administered on 05/31/18 08:32; Admin Dose 81 MG; Start 05/30/18 at 09:00 Isosorbide Dinitrate (Isordil) 10 mg TID PO ; Start 05/30/18 at 21:00 RAVINDER DYER May 31, 2018 11:53
--- NOTE | 2018-05-31 13:48 | CARRPT ---
DATE OF PROCEDURE: 05/31/2018 REASON FOR TEST: Chest pain, assess for ischemia. BASELINE VITAL SIGNS AND ELECTROCARDIOGRAM: Pulse 86, blood pressure 120/61. Electrocardiogram reveals sinus bradycardia at 56, normal axis, normal intervals, isolated inferior T -wave inversion. PROCEDURE: The patient underwent standard Lexiscan infusion protocol over 10 seconds followed by rad iotracer. The patients test was stopped due to completion of protocol. Maximal achieved blood press ure during the test 113/58. Maximum heart rate during the test 93. ECG FINDINGS: The patient developed any new Lexiscan-induced ST or T-wave changes from baseline abno rmalities. No documented PVCs. SYMPTOMS: The patient had complaints of shortness of breath during stress testing, resolved in recov juan. No chest pain. IMPRESSION: 1. No Lexiscan-induced ST or T-wave changes from baseline abnormalities to diagnose for ischemia. 2. Complaints of shortness of breath during stress test that resolved in recovery. 3. No documented premature ventricular contractions during stress test. 4. No chest pain during stress test. 5. Report of nuclear images to follow in separate dictation. Dictated By: RAVINDER TELLO/JUANITO Conf#: [id number] DID#: [id number] CC: DAVI KAHN MD;*End*
--- NOTE | 2018-05-31 15:41 | PN ---
Date/Time of Note Date/Time of Note DATE: 05/31/18 TIME: 15:34 Assessment/Plan VTE Prophylaxis Risk score (from Nsg)>0 risk: 2 SCD applied (from Nsg): Yes Lines/Catheters IV Catheter Type (from Nrsg): Saline Lock Urinary Cath still in place: No Assessment/Plan Assessment/Plan - acute Headache- not getting better - CT brain w/o contrast- fu results - Chest Pain r/ ACS- none now - per cardiology consult - Patient seen in collaboration with Dr Gross. staff. Result Diagram: 05/30/1870205/30/18702 Subjective 24 Hr Interval Summary Free Text/Dictation c/o intractable headache- not getting better c/o nausea, no vomitting Constitutional: no complaints Eyes: no complaints ENT: no complaints Respiratory: no complaints Cardiovascular: no complaints (chest pain on/off; ok now) Gastrointestinal: nausea Genitourinary: no complaints Musculoskeletal: no complaints Skin: no complaints Neurologic: headache Endocrine: no complaints Lymphatic: no complaints Psychological: nl mood/affect Exam/Review of Systems Exam Vitals Vital Signs Date Temp Pulse Resp B/P (MAP) Pulse Ox O2 O2 Flow FiO2 Time Delivery Rate 05/31/18 98.3 66 18 125/68 98 13:04 (87) 05/31/18 Room Air 07:47 05/29/18 3.0 14:45 Intake and Output 05/30/18 05/30/18 05/31/18 1515:00 23:00 07:00 IntakeIntake Total 250 ml BalanceBalance 250 ml Constitutional: alert, well developed Psych: nl mood/affect Eyes: nl lids, nl sclera ENMT: nl external ears & nose Neck: non-tender Respiratory: clear to auscultation Cardiovascular: nl pulses, other Gastrointestinal: soft, non-tender Musculoskeletal: nl extremities to inspection Extremities: normal pulses Neurological: nl speech Skin: nl turgor Lymph: nontender Medications Medication Current Medications Albuterol (Ventolin Hfa) 2 puff Q4H INH Last administered on 05/31/18at 13:07; Admin Dose 2 PUFF; Start 05/29/18 at 01:00 Docusate Sodium (Colace) 100 mg QAM PO Last administered on 05/31/18at 08:32; Admin Dose 100 MG; Start 05/29/18 at 09:00 Nitroglycerin (Nitroglycerin (Sl Tab) 0.4 Mg) 1 tab [id number] PRN SL CHEST PAIN; Start 05/29/18 at 01:00 Morphine Sulfate (morphine) 4 mg Q4 PRN IV PAIN LEVEL 6-10 Last administered on 05/29/18 17:15; Admin Dose 4 MG; Start 05/29/18 at 01:00 Acetaminophen (Tylenol Tab) 650 mg Q4 PRN PO FEVER GREATER THAN 100.6; Start 05/29/18 at 01:00 Acetaminophen/ Hydrocodone Bitart ([place] (5/325)) 1 tab Q4H PRN PO MODERATE PAIN LEVEL 4-6 Last administered on 05/31/18 15:08; Admin Dose 1 TAB; Start 05/29/18 at 18:30 Lorazepam (Ativan) 0.5 mg HS PRN PO ANXIETY; Start 05/29/18 at 18:30 Multivitamins Therapeutic (Theragran) 1 tab DAILY PO Last administered on 05/31/18 08:32; Admin Dose 1 TAB; Start 05/30/18 at 09:00 Pantoprazole (Protonix Tab) 40 mg AC BREAKFAST PO Last administered on 05/31/18 06:41; Admin Dose 40 MG; Start 05/30/18 at 07:25 Metoclopramide HCl (Reglan) 10 mg Q6H PRN IV NAUSEA AND/OR VOMITING; Start 05/29/18 at 19:00 Aspirin (Aspirin) 81 mg DAILY PO Last administered on 05/31/18 08:32; Admin Dose 81 MG; Start 05/30/18 at 09:00 Isosorbide Dinitrate (Isordil) 10 mg TID PO Last administered on 05/31/18 13:07; Admin Dose 10 MG; Start 05/30/18 at 21:00 CAMILO RAMSAY May 31, 2018 15:41
--- NOTE | 2018-05-31 15:57 | RADRPT ---
Vent Rate: 58 bpm RR Interval: 1032 msec IL Interval: 148 msec QRS Duration: 92 msec QT Interval: 450 msec QTC Interval: 443 msec P-R-T [place]: 11 - 82 - -1 degrees Sinus rhythm...normal P axis, V-rate 50- 99 Nonspecific T abnormalities, anterior leads...T <-0.10mV, V2-V4 Electronically Signed By: Chet Alberto
[2018-05-31] MEDS: morphine 4 MG/ML VIAL IV PRN (16:38)
[2018-05-31] MEDS: DEXTROSE 5%-0.9% NACL 1,000 ML IV SCH (17:15)
[2018-05-31] MEDS ORDERED: BARIUM SULF 2% 450 ML BTL (BERRY SMOOTHIE) PO ONE (20:00)
--- NOTE | 2018-05-31 20:43 | CONS ---
DATE OF ADMISSION: 05/31/2018 DATE OF CONSULTATION: HISTORY OF PRESENT ILLNESS: The patient seen by me at the request of Dr. Thurman because apparently patient has been vomiting for the past 1 year and she vomited 400 mL of fluid today. She is admitte d with chest pain. No history of vomiting blood or passing blood from the rectum, no diarrhea. She is being evaluated f rom the cardiac standpoint to rule out myocardial infarction. CLINICAL IMPRESSION: This patient has recurrent vomiting, rule out peptic ulcer disease. PLAN: At this time, will do an EGD tomorrow if she is clear from the cardiac standpoint. I will dic payne more detailed note eventually. Dictated By: PAULA STARKS MD NC/NTS Conf#: [id number] DID#: [id number] CC: DAVI THURMAN MD;*EndCC*
[2018-05-31] MEDS: ONDANSETRON 4 MG INJ IV PRN (21:49)
[2018-06-01] VITALS (14 sets, daily range): BP systolic 99–146; BP diastolic 58–76; PULSE 51–81; RESP 17–22
[2018-06-01] MEDS: ALBUTEROL HFA 8 GM INHALER INH SCH ×6 (01:00→21:00)
[2018-06-01] MEDS: HYDROCODONE/APAP (5/325) TAB PO PRN ×3 (05:56→21:17)
[2018-06-01] MEDS ORDERED: PROPOFOL 200 MG INJ ONE (07:00)
[2018-06-01] MEDS: DEXTROSE 5%-0.9% NACL 1,000 ML IV SCH (07:11)
[2018-06-01] MEDS: PANTOPRAZOLE (EC) 40 MG TAB PO SCH (07:25)
[2018-06-01] MEDS: ASPIRIN 81 MG TAB PO SCH (08:32)
[2018-06-01] MEDS: ISOSORBIDE DINITRATE 10 MG TAB PO SCH ×3 (08:33→21:17)
[2018-06-01] MEDS: MULTIVITAMINS THERAPEUTIC TAB PO SCH (08:33)
[2018-06-01] MEDS: DOCUSATE SODIUM 100 MG CAP PO SCH (08:33)
--- NOTE | 2018-06-01 09:57 | PREAC ---
Date/Time of Note Date/Time of Note DATE: 06/01/18 TIME: 09:55 Anesthesia Eval and Record Evaluation Time Pre-Procedure Interview DATE: 06/01/18 TIME: 09:55 Age 57 Sex female NPO: 8 hrs Preoperative diagnosis recurrent vomiting Planned procedure EGD Past Medical History Past Medical History: Includes Cardio: HTN, SD, CAD, PTCA/Stent Hepatic: Cirrhosis Surgery & Anesthesia Issues No known issue Meds Anticoagulation: No Beta Magnolia within 24 hr: No Reason Beta Magnolia not given: Pt. not on B-[place] Active Scripts Hydrocodone Bit-Acetaminophen (Hydrocodone Bit-APAP) 5-325MG Tablet, 1 TAB PO Q4H PRN for MODERATE PAIN LEVEL 4-6, #20 TAB Prov:BRITTANEY REESE 04/11/18 Reported Medications Nitroglycerin* (Nitrostat*) 0.4 Mg Tab.subl, 0.4 MG SL Q5MIN PRN for CHEST PAIN, BOTTLE 05/28/18 Multivitamins* (Theragran*) 1 Tab Tab, 1 TAB PO DAILY, TAB 05/28/18 Lorazepam* (Lorazepam*) 0.5 Mg Tablet, 0.5 MG PO HS PRN for ANXIETY, TAB 05/28/18 Aspirin Ec (Aspir 81) 81 Mg Tablet.dr, 81 MG PO DAILY, #30 TAB 05/28/18 Lactose-Reduced Food (Boost) 237 Ml Liquid 05/28/18 Albuterol Sulfate* (Ventolin HFA*) 18 Gm Hfa.aer.ad, 2 PUFF INHALATION Q4H, #1 INHALER 05/28/18 Buprenorphine (Butrans) 1 Each Patch.tdwk, 1 EACH TD Q7DAYS 04/09/18 Docusate Sodium* (Colace*) 100 Mg Capsule, 100 MG PO QAM, #30 CAP 04/09/18 Omeprazole* (Omeprazole*) 40 Mg Capsule.dr, 40 MG PO AC BREAKFAST, #30 CAP 04/09/18 Current Medications Albuterol (Ventolin Hfa) 2 puff Q4H INH Last administered on 06/01/18at 05:56; Admin Dose 2 PUFF; Start 05/29/18 at 01:00 Docusate Sodium (Colace) 100 mg QAM PO Last administered on 05/31/18at 08:32; Admin Dose 100 MG; Start 05/29/18 at 09:00 Nitroglycerin (Nitroglycerin (Sl Tab) 0.4 Mg) 1 tab [id number] PRN SL CHEST PAIN; Start 05/29/18 at 01:00 Morphine Sulfate (morphine) 4 mg Q4 PRN IV PAIN LEVEL 6-10 Last administered on 05/31/18 16:38; Admin Dose 4 MG; Start 05/29/18 at 01:00 Acetaminophen (Tylenol Tab) 650 mg Q4 PRN PO FEVER GREATER THAN 100.6; Start 05/29/18 at 01:00 Acetaminophen/ Hydrocodone Bitart ([place] (5/325)) 1 tab Q4H PRN PO MODERATE PAIN LEVEL 4-6 Last administered on 06/01/18 05:56; Admin Dose 1 TAB; Start 05/29/18 at 18:30 Lorazepam (Ativan) 0.5 mg HS PRN PO ANXIETY; Start 05/29/18 at 18:30 Multivitamins Therapeutic (Theragran) 1 tab DAILY PO Last administered on 05/31/18 08:32; Admin Dose 1 TAB; Start 05/30/18 at 09:00 Pantoprazole (Protonix Tab) 40 mg AC BREAKFAST PO Last administered on 05/31/18 06:41; Admin Dose 40 MG; Start 05/30/18 at 07:25 Metoclopramide HCl (Reglan) 10 mg Q6H PRN IV NAUSEA AND/OR VOMITING Last administered on 05/31/18 16:38; Admin Dose 10 MG; Start 05/29/18 at 19:00 Aspirin (Aspirin) 81 mg DAILY PO Last administered on 05/31/18 08:32; Admin Dose 81 MG; Start 05/30/18 at 09:00 Isosorbide Dinitrate (Isordil) 10 mg TID PO Last administered on 05/31/18 21:04; Admin Dose 10 MG; Start 05/30/18 at 21:00 Dextrose/Sodium Chloride 1,000 ml @ 70 mls/hr [id number] IV Last administered on 05/31/18 17:15; Admin Dose 70 MLS/HR; Start 05/31/18 at 17:00 Ondansetron HCl (Zofran Inj) 4 mg Q6H PRN IV NAUSEA AND/OR VOMITING Last administered on 4/25/19at 21:49; Admin Dose 4 MG; Start 05/31/18 at 17:00 Meds reviewed: Yes Allergies Coded Allergies: No Known Drug Allergies (Verified Allergy, Severe, 04/09/18) acetaminophen (Verified Adverse Reaction, Severe, CANNOT TAKE BEACUSE OF CIRRHOSIS, 04/09/18) ibuprofen (Verified Adverse Reaction, Severe, CANNOT TAKE BEACUSE CAUSES GI BLEED, 04/09/18) Allergies Reviewed: Yes Labs/Studies Labs Reviewed: Reviewed by anesthesiologist Result Diagram: 06/01/1860506/01/18 06 Laboratory Tests 06/01/18 06:06 test: N/A Studies: ECG, CXR, Stress test (negative for ischemia ), 2D Echo Pre-procedure Exam Last vitals Vital Signs Date Temp Pulse Resp B/P (MAP) Pulse Ox O2 O2 Flow FiO2 Time Delivery Rate 06/01/18 57 08:11 06/01/18 98.0 18 110/70 97 07:39 (83) 06/01/18 Room Air 00:00 05/29/18 3.0 14:45 Airway: Adequate mouth opening, Adequate thyromental dist Mallampati: Mallampati II Teeth: Normal Lung: Normal Heart: Normal ASA Physical Status ASA physical status: 3 Emergency: None Planned Anesthetic General/MAC: Mask Planned Pain Management Parenteral pain med Pre-operative Attestations Prior to commencing anesthesia and surgery, the patient was re-evaluated, there was verification of: *The patient's identity *The results of appropriate recent lab work and preoperative vital signs *The above evaluation not changing prior to induction *Anesthetic plan, risk benefits, alternative and complications discussed with patient/family; questions answered; patient/family understands, accepts and wishes to proceed. THEODORE MALLORY MD Jun 01, 2018 09:57
[2018-06-01] MEDS ORDERED: ONDANSETRON 4 MG INJ IV STA (10:53)
[2018-06-01] MEDS ORDERED: ONDANSETRON 4 MG INJ ONE (11:02)
--- NOTE | 2018-06-01 11:31 | PAC ---
Date/Time of Note Date/Time of Note DATE: 06/01/18 TIME: 11:31 Post-Anesthesia Notes Post-Anesthesia Note Last documented vital signs Vital Signs Date Temp Pulse Resp B/P (MAP) Pulse Ox O2 O2 Flow FiO2 Time Delivery Rate 06/01/18 Non 10 11:10 Rebreather 06/01/18 57 08:11 06/01/18 98.0 67 18 110/70 97 11:30 (83) Activity: WNL Respiratory function: WNL Cardiovascular function: WNL Mental status: Baseline Pain reasonably controlled: Yes Hydration appropriate: Yes Nausea/Vomiting absent: Yes THAI TERESA MD Jun 01, 2018 11:31
[2018-06-01] MEDS: morphine 4 MG/ML VIAL IV PRN ×2 (13:45→17:49)
--- NOTE | 2018-06-01 14:33 | CONS ---
Assessment/Plan Assessment/Plan Hospital Course (Demo Recall) IMPRESSION: 1. Chest pain, assess for acute coronary syndrome.-neg trop x 3 2. Abnormal echocardiogram, assess for acute coronary syndrome.-neg trop x 3. Lexiscan this admit with no ischemia. EF 52%, EF 45-50 by echo 3. History of stent in 2011. 4. Thrombocytopenia/pancytopenia 5. Bradycardia-NL TSH 6. N/V Recc: -Tele -Continue asa -Continue isordil -Endoscopy today Consultation Date/Type/Reason Admit Date/Time May 31, 2018 at 15:30 Initial Consult Date 05/30/18 Type of Consult Cardiology Reason for Consultation chest pain Requesting Provider: DAVI KAHN MD Date/Time of Note DATE: 06/01/18 TIME: 14:29 Exam/Review of Systems Vital Signs Vitals Vital Signs Date Temp Pulse Resp B/P (MAP) Pulse Ox O2 O2 Flow FiO2 Time Delivery Rate 06/01/18 62 20 126/76 96 Room Air 13:50 (93) 06/01/18 98.0 11:50 06/01/18 10 11:10 Intake and Output 05/31/18 05/31/18 06/01/18 1515:00 23:00 07:00 IntakeIntake Total 390 ml 200 ml OutputOutput Total 400 ml BalanceBalance -10 ml 200 ml Exam Exam Review of Systems: CONSTITUTIONAL: No fevers, chills. PULMONARY: No sob CARDIOVASCULAR: No chest pain/palpitations GASTROINTESTINAL: No nausea/vomiting. GENITOURINARY: No hematuria/dysuria. MUSCULOSKELETAL: No myagias/arthalgias. PSYCHIATRIC: The patient denies depression. NEUROLOGIC: No weakness Constitutional: alert Psych: no complaints Head: normocephalic ENMT: mucosa pink and moist Neck: supple, jvd (9 cm water) Respiratory: diminished breath sounds Cardiovascular: regular rate and rhythm Gastrointestinal: soft, non-tender Musculoskeletal: muscle tone (normal) Extremities: edema (none) Neurological: other (No focal deficits) Labs Result Diagram: 06/01/1860506/01/18605 Results 24hrs Laboratory Tests Test 05/31/18 16:03 06/01/18 06:06 White Blood Count 3.1 L 1.6 #L Red Blood Count 4.32 4.19 L Hemoglobin 12.1 11.8 L Hematocrit 38.3 36.6 L Mean Corpuscular Volume 88.7 87.4 Mean Corpuscular Hemoglobin 28.0 L 28.2 L Mean Corpuscular Hemoglobin Concent 31.6 L 32.2 Red Cell Distribution Width 13.5 13.4 Platelet Count 54 L 50 L Mean Platelet Volume 10.9 H 11.2 H Immature Granulocytes % 0.000 L 0.000 L Neutrophils % 49.6 Lymphocytes % 31.3 Monocytes % 11.2 H Eosinophils % 7.3 H Basophils % 0.6 Nucleated Red Blood Cells % 0.0 1 H Immature Granulocytes # 0.000 0.000 Neutrophils # 1.6 Lymphocytes # 1.0 Monocytes # 0.4 Eosinophils # 0.2 Basophils # 0.0 Nucleated Red Blood Cells # 0.0 Sodium Level 141 144 Potassium Level 4.3 4.2 Chloride Level 102 107 Carbon Dioxide Level 32 H 29 Anion Gap 7 8 Blood Urea Nitrogen 18 12 Creatinine 0.53 0.45 Est Glomerular Filtrat Rate mL/min > 60 > 60 Glucose Level 117 97 Calcium Level 9.2 9.5 Segmented Neutrophils % (Manual) 44 Lymphocytes % (Manual) 35 Reactive Lymphocytes % (Manual) 2 H Monocytes % (Manual) 5 Eosinophils % (Manual) 12 H Basophils % (Manual) 2 Lymphocytes (Manual) 0.5 L Reactive Lymphocytes # 0.0 Monocytes # (Manual) 0.0 L Basophils # (Manual) 0.0 Platelet Estimate SIG DECREASED Giant Platelets 2 H Poikilocytosis 1+ Anisocytosis 1+ Microcytosis 1+ Total Bilirubin 0.4 Direct Bilirubin 0.00 Indirect Bilirubin 0.4 Aspartate Amino Transf (AST/SGOT) 23 Alanine Aminotransferase (ALT/SGPT) 23 Alkaline Phosphatase 61 Total Protein 7.2 Albumin 3.8 Globulin 3.40 H Albumin/Globulin Ratio 1.11 Medications Medications Current Medications Albuterol (Ventolin Hfa) 2 puff Q4H INH Last administered on 06/01/18at 05:56; Admin Dose 2 PUFF; Start 05/29/18 at 01:00 Docusate Sodium (Colace) 100 mg QAM PO Last administered on 05/31/18at 08:32; Admin Dose 100 MG; Start 05/29/18 at 09:00 Nitroglycerin (Nitroglycerin (Sl Tab) 0.4 Mg) 1 tab [id number] PRN SL CHEST PAIN; Start 05/29/18 at 01:00 Morphine Sulfate (morphine) 4 mg Q4 PRN IV PAIN LEVEL 6-10 Last administered on 06/01/18 13:45; Admin Dose 4 MG; Start 05/29/18 at 01:00 Acetaminophen (Tylenol Tab) 650 mg Q4 PRN PO FEVER GREATER THAN 100.6; Start 05/29/18 at 01:00 Acetaminophen/ Hydrocodone Bitart ([place] (5/325)) 1 tab Q4H PRN PO MODERATE PAIN LEVEL 4-6 Last administered on 06/01/18 12:25; Admin Dose 1 TAB; Start 05/29/18 at 18:30 Lorazepam (Ativan) 0.5 mg HS PRN PO ANXIETY; Start 05/29/18 at 18:30 Multivitamins Therapeutic (Theragran) 1 tab DAILY PO Last administered on 05/31/18 08:32; Admin Dose 1 TAB; Start 05/30/18 at 09:00 Pantoprazole (Protonix Tab) 40 mg AC BREAKFAST PO Last administered on 05/31/18 06:41; Admin Dose 40 MG; Start 05/30/18 at 07:25 Metoclopramide HCl (Reglan) 10 mg Q6H PRN IV NAUSEA AND/OR VOMITING Last administered on 05/31/18 16:38; Admin Dose 10 MG; Start 05/29/18 at 19:00 Aspirin (Aspirin) 81 mg DAILY PO Last administered on 05/31/18 08:32; Admin Dose 81 MG; Start 05/30/18 at 09:00 Isosorbide Dinitrate (Isordil) 10 mg TID PO Last administered on 06/01/18 13:45; Admin Dose 10 MG; Start 05/30/18 at 21:00 Dextrose/Sodium Chloride 1,000 ml @ 70 mls/hr [id number] IV Last administered on 05/31/18 17:15; Admin Dose 70 MLS/HR; Start 05/31/18 at 17:00 Ondansetron HCl (Zofran Inj) 4 mg Q6H PRN IV NAUSEA AND/OR VOMITING Last a dministered on 05/31/18 21:49; Admin Dose 4 MG; Start 05/31/18 at 17:00 RAVINDER DYER Jun 01, 2018 14:33
--- NOTE | 2018-06-01 15:05 | CONS ---
Assessment/Plan Assessment/Plan Hospital Course 57 yo F with hx of metastatic colon CA and other comorbidities who presents for evaluation of chest pain, dizziness, and other sx. She was additionally noted to have severe headaches... for which neurology is consulted. 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 A nonspecific headache in the context of systemic illness is additionally considered. CTH is unrevealing. P: Await MRI brain for further characterization LP with CSF evaluation for cell count and cytology (may require pre-procedure Plt transfusion) Pain and other medical management per primary Will follow clinically, to recommend neurologic studies, as necessary Consultation Date/Type/Reason Admit Date/Time May 31, 2018 at 15:30 Type of Consult Neurology Reason for Consultation severe headache Requesting Provider: DAVI KAHN MD Date/Time of Note DATE: 06/01/18 TIME: 15:05 Hx of Present Illness This is a 57-year-old female with history of colon CA s/p colectomy, partial thyroidectomy, and multiple other comorbidities who presented to the ED with complaints of dizziness, chest pain, SOB, and nausea. History was obtained from patient and chart review. The patient states that shes had a two year history of headaches, that began around the time that she was first diagnosed with colon cancer, back in 2015. She states that her headaches vary in location, and are occasionally frontal or posterior. She states that they come on gradually, are sharp and nonradiating, constant, and of a moderate to severe intensity. She states that they can last from hours to days and that associated symptoms include nausea, vomiting, dizziness, and blurred vision. She denies both aggravating and alleviating factors. She states that they go away on her own. She states that shes had a headache for two days, as described above, that remains unrelieved with current use of S[place], morphine, and Tylenol. She additionally notes that back in April 2018 she was told that she had to have a partial thyroidectomy because her colon cancer had spread to her thyroid. It is additionally elsewhere noted: Hx of Present Illness dizziness, chest pain, sob and nausea x2hrs HPI This is a 57-year-old female who is here for chest pain. She says that she is she is having pain similar to her prior DC that she had 2011 where she had a angioplasty. Pain is located in the substernal chest region with some radiation to the left scapula with some shortness of breath. She took a nitroglycerin at home but it did not help her pain. She also complains of nausea but no vomiting and some dizziness which is typical with her pain that she has with angina negative unless noted otherwise in HPI Exam/Review of Systems Exam Vitals Vital Signs Date Temp Pulse Resp B/P (MAP) Pulse Ox O2 O2 Flow FiO2 Time Delivery Rate 06/01/18 62 20 126/76 96 Room Air 13:50 (93) 06/01/18 98.0 11:50 06/01/18 10 11:10 Intake and Output 05/31/18 05/31/18 06/01/18 1515:00 23:00 07:00 IntakeIntake Total 390 ml 200 ml OutputOutput Total 400 ml BalanceBalance -10 ml 200 ml Exam PE: Gen Appearance: No Apparent Distress HEENT: Normocephalic Cardiovascular: Regular rate Lungs: Clear bilaterally Abdomen: Soft Extremities: Dry NE: The patient was alert and oriented. Language was normal. Fund of knowledge was normal. Pupils were equal and reactive to light. There was no afferent pupillary defect. Visual lipscomb were normal. Funduscopic examination was limited. Extra-ocular movements were full. Ptosis was absent. There was no nystagmus. Facial sensation was normal. Face was symmetric with normal strength. Hearing was intact. Palate movements were normal. Neck strength was normal. There was normal tongue bulk and speed of movement. Tone was normal. Muscle bulk was normal. I did not see fasciculations. Arms and legs were strong. Vibration sensation was normal. Temperature and pinprick sensation was normal. Rapid alternating movements were normal. There was no dysmetria. There was no in tention tremor. Gait was deferred due to bedrest. Arm and leg reflexes were 2+ and symmetric. Carroll's sign was absent. Plantar responses were flexor. Results Result Diagram: 06/01/1860506/01/18605 Results 24hrs Laboratory Tests Test 05/31/18 16:03 06/01/18 06:06 White Blood Count 3.1 L 1.6 #L Red Blood Count 4.32 4.19 L Hemoglobin 12.1 11.8 L Hematocrit 38.3 36.6 L Mean Corpuscular Volume 88.7 87.4 Mean Corpuscular Hemoglobin 28.0 L 28.2 L Mean Corpuscular Hemoglobin Concent 31.6 L 32.2 Red Cell Distribution Width 13.5 13.4 Platelet Count 54 L 50 L Mean Platelet Volume 10.9 H 11.2 H Immature Granulocytes % 0.000 L 0.000 L Neutrophils % 49.6 Lymphocytes % 31.3 Monocytes % 11.2 H Eosinophils % 7.3 H Basophils % 0.6 Nucleated Red Blood Cells % 0.0 1 H Immature Granulocytes # 0.000 0.000 Neutrophils # 1.6 Lymphocytes # 1.0 Monocytes # 0.4 Eosinophils # 0.2 Basophils # 0.0 Nucleated Red Blood Cells # 0.0 Sodium Level 141 144 Potassium Level 4.3 4.2 Chloride Level 102 107 Carbon Dioxide Level 32 H 29 Anion Gap 7 8 Blood Urea Nitrogen 18 12 Creatinine 0.53 0.45 Est Glomerular Filtrat Rate mL/min > 60 > 60 Glucose Level 117 97 Calcium Level 9.2 9.5 Segmented Neutrophils % (Manual) 44 Lymphocytes % (Manual) 35 Reactive Lymphocytes % (Manual) 2 H Monocytes % (Manual) 5 Eosinophils % (Manual) 12 H Basophils % (Manual) 2 Lymphocytes (Manual) 0.5 L Reactive Lymphocytes # 0.0 Monocytes # (Manual) 0.0 L Basophils # (Manual) 0.0 Platelet Estimate SIG DECREASED Giant Platelets 2 H Poikilocytosis 1+ Anisocytosis 1+ Microcytosis 1+ Total Bilirubin 0.4 Direct Bilirubin 0.00 Indirect Bilirubin 0.4 Aspartate Amino Transf (AST/SGOT) 23 Alanine Aminotransferase (ALT/SGPT) 23 Alkaline Phosphatase 61 Total Protein 7.2 Albumin 3.8 Globulin 3.40 H Albumin/Globulin Ratio 1.11 Medications Medication Current Medications Albuterol (Ventolin Hfa) 2 puff Q4H INH Last administered on 06/01/18at 05:56; Admin Dose 2 PUFF; Start 05/29/18 at 01:00 Docusate Sodium (Colace) 100 mg QAM PO Last administered on 05/31/18at 08:32; Admin Dose 100 MG; Start 05/29/18 at 09:00 Nitroglycerin (Nitroglycerin (Sl Tab) 0.4 Mg) 1 tab [id number] PRN SL CHEST PAIN; Start 05/29/18 at 01:00 Morphine Sulfate (morphine) 4 mg Q4 PRN IV PAIN LEVEL 6-10 Last administered on 06/01/18 13:45; Admin Dose 4 MG; Start 05/29/18 at 01:00 Acetaminophen (Tylenol Tab) 650 mg Q4 PRN PO FEVER GREATER THAN 100.6; Start 05/29/18 at 01:00 Acetaminophen/ Hydrocodone Bitart ([place] (5/325)) 1 tab Q4H PRN PO MODERATE PAIN LEVEL 4-6 Last administered on 06/01/18 12:25; Admin Dose 1 TAB; Start 05/29/18 at 18:30 Lorazepam (Ativan) 0.5 mg HS PRN PO ANXIETY; Start 05/29/18 at 18:30 Multivitamins Therapeutic (Theragran) 1 tab DAILY PO Last administered on 05/31/18 08:32; Admin Dose 1 TAB; Start 05/30/18 at 09:00 Pantoprazole (Protonix Tab) 40 mg AC BREAKFAST PO Last administered on 05/31/18 06:41; Admin Dose 40 MG; Start 05/30/18 at 07:25 Metoclopramide HCl (Reglan) 10 mg Q6H PRN IV NAUSEA AND/OR VOMITING Last administered on 05/31/18 16:38; Admin Dose 10 MG; Start 05/29/18 at 19:00 Aspirin (Aspirin) 81 mg DAILY PO Last administered on 05/31/18 08:32; Admin Dose 81 MG; Start 05/30/18 at 09:00 Isosorbide Dinitrate (Isordil) 10 mg TID PO Last administered on 06/01/18 13:45; Admin Dose 10 MG; Start 05/30/18 at 21:00 Dextrose/Sodium Chloride 1,000 ml @ 70 mls/hr [id number] Last administered on 05/31/18 17:15; Admin Dose 70 MLS/HR; Start 05/31/18 at 17:00 Ondansetron HCl (Zofran Inj) 4 mg Q6H PRN IV NAUSEA AND/OR VOMITING Last administered on 05/31/18 21:49; Admin Dose 4 MG; Start 05/31/18 at 17:00 Past Medical History reviewed Home Meds Active Scripts Hydrocodone Bit-Acetaminophen (Hydrocodone Bit-APAP) 5-325MG Tablet, 1 TAB PO Q4H PRN for MODERATE PAIN LEVEL 4-6, #20 TAB Prov:BRITTANEY REESE 04/11/18 Reported Medications Nitroglycerin* (Nitrostat*) 0.4 Mg Tab.subl, 0.4 MG SL Q5MIN PRN for CHEST PAIN, BOTTLE 05/28/18 Multivitamins* (Theragran*) 1 Tab Tab, 1 TAB PO DAILY, TAB 05/28/18 Lorazepam* (Lorazepam*) 0.5 Mg Tablet, 0.5 MG PO HS PRN for ANXIETY, TAB 05/28/18 Aspirin Ec (Aspir 81) 81 Mg Tablet.dr, 81 MG PO DAILY, #30 TAB 05/28/18 Lactose-Reduced Food (Boost) 237 Ml Liquid 05/28/18 Albuterol Sulfate* (Ventolin HFA*) 18 Gm Hfa.aer.ad, 2 PUFF INHALATION Q4H, #1 INHALER 05/28/18 Buprenorphine (Butrans) 1 Each Patch.tdwk, 1 EACH TD Q7DAYS 04/09/18 Docusate Sodium* (Colace*) 100 Mg Capsule, 100 MG PO QAM, #30 CAP 04/09/18 Omeprazole* (Omeprazole*) 40 Mg Capsule.dr, 40 MG PO AC BREAKFAST, #30 CAP 04/09/18 Medications Current Medications Albuterol (Ventolin Hfa) 2 puff Q4H INH Last administered on 06/01/18at 05:56; Admin Dose 2 PUFF; Start 05/29/18 at 01:00 Docusate Sodium (Colace) 100 mg QAM PO Last administered on 05/31/18at 08:32; Admin Dose 100 MG; Start 05/29/18 at 09:00 Nitroglycerin (Nitroglycerin (Sl Tab) 0.4 Mg) 1 tab [id number] PRN SL CHEST PAIN; Start 05/29/18 at 01:00 Morphine Sulfate (morphine) 4 mg Q4 PRN IV PAIN LEVEL 6-10 Last administered on 06/01/18at 13:45; Admin Dose 4 MG; Start 05/29/18 at 01:00 Acetaminophen (Tylenol Tab) 650 mg Q4 PRN PO FEVER GREATER THAN 100.6; Start 05/29/18 at 01:00 Acetaminophen/ Hydrocodone Bitart ([place] (5/325)) 1 tab Q4H PRN PO MODERATE PAIN LEVEL 4-6 Last administered on 06/01/18 12:25; Admin Dose 1 TAB; Start 05/29/18 at 18:30 Lorazepam (Ativan) 0.5 mg HS PRN PO ANXIETY; Start 05/29/18 at 18:30 Multivitamins Therapeutic (Theragran) 1 tab DAILY PO Last administered on 05/31/18 08:32; Admin Dose 1 TAB; Start 05/30/18 at 09:00 Pantoprazole (Protonix Tab) 40 mg AC BREAKFAST PO Last administered on 05/31/18 06:41; Admin Dose 40 MG; Start 05/30/18 at 07:25 Metoclopramide HCl (Reglan) 10 mg Q6H PRN IV NAUSEA AND/OR VOMITING Last administered on 05/31/18 16:38; Admin Dose 10 MG; Start 05/29/18 at 19:00 Aspirin (Aspirin) 81 mg DAILY PO Last administered on 05/31/18 08:32; Admin Dose 81 MG; Start 05/30/18 at 09:00 Isosorbide Dinitrate (Isordil) 10 mg TID PO Last administered on 06/01/18 13:45; Admin Dose 10 MG; Start 05/30/18 at 21:00 Dextrose/Sodium Chloride 1,000 ml @ 70 mls/hr [id number] IV Last administered on 05/31/18 17:15; Admin Dose 70 MLS/HR; Start 05/31/18 at 17:00 Ondansetron HCl (Zofran Inj) 4 mg Q6H PRN IV NAUSEA AND/OR VOMITING Last administered on 05/31/18 21:49; Admin Dose 4 MG; Start 05/31/18 at 17:00 Allergies: Coded Allergies: No Known Drug Allergies (Verified Allergy, Severe, 04/09/18) acetaminophen (Verified Adverse Reaction, Severe, CANNOT TAKE BEACUSE OF CIRRHOSIS, 04/09/18) ibuprofen (Verified Adverse Reaction, Severe, CANNOT TAKE BEACUSE CAUSES GI BLEED, 04/09/18) Past Surgical History reviewed Social History reviewed Smoking Status: Never smoker TRU WEIR NP Jun 01, 2018 15:05 CHERRI WATSON Jun 02, 2018 06:57
[2018-06-02] VITALS (9 sets, daily range): BP systolic 97–113; BP diastolic 56–71; PULSE 52–70; RESP 17–22
[2018-06-02] MEDS: ONDANSETRON 4 MG INJ IV PRN (00:11)
[2018-06-02] MEDS: morphine 4 MG/ML VIAL IV PRN ×5 (00:25→21:37)
[2018-06-02] MEDS: ALBUTEROL HFA 8 GM INHALER INH SCH ×6 (01:00→21:07)
[2018-06-02] MEDS: PANTOPRAZOLE (EC) 40 MG TAB PO SCH (07:25)
--- NOTE | 2018-06-02 08:42 | CONS ---
Assessment/Plan Assessment/Plan Hospital Course 57 yo F with hx of metastatic colon CA and other comorbidities who presents for evaluation of chest pain, dizziness, and other sx. She was additionally noted to have severe headaches... for which neurology is consulted. 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 A nonspecific headache in the context of systemic illness is additionally considered. CTH is unrevealing. P: Await MRI brain for further characterization LP with CSF evaluation for cell count and cytology (may require pre-procedure Plt transfusion) Pain and other medical management per primary Will follow clinically, to recommend neurologic studies, as necessary Consultation Date/Type/Reason Admit Date/Time May 31, 2018 at 15:30 Type of Consult Neurology Reason for Consultation severe headache Requesting Provider: DAVI KAHN MD Date/Time of Note DATE: 06/02/18 TIME: 08:41 24 HR Interval Summary Free Text/Dictation Continues acute care. Awaiting LP today. Pt still has c/o severe headache, unrelieved with [place]/morphine. Exam Vital Signs Vitals Vital Signs Date Temp Pulse Resp B/P (MAP) Pulse Ox O2 O2 Flow FiO2 Time Delivery Rate 06/02/18 98.0 57 22 113/56 96 Room Air 07:24 (75) 06/01/18 10 11:10 Intake and Output 06/01/18 06/01/18 06/02/18 1515:00 23:00 07:00 IntakeIntake Total 1300 ml 300 ml BalanceBalance 1300 ml 300 ml Exam PE: Gen Appearance: No Apparent Distress HEENT: Normocephalic Cardiovascular: Regular rate Lungs: Clear bilaterally Abdomen: Soft Extremities: Dry NE: The patient was alert and oriented. Language was normal. Fund of knowledge was normal. Pupils were equal and reactive to light. There was no afferent pupillary defect. Visual lipscomb were normal. Funduscopic examination was limited. Extra-ocular movements were full. Ptosis was absent. There was no nystagmus. Facial sensation was normal. Face was symmetric with normal strength. Hearing was intact. Palate movements were normal. Neck strength was normal. There was normal tongue bulk and speed of movement. Tone was normal. Muscle bulk was normal. I did not see fasciculations. Arms and legs were strong. Vibration sensation was normal. Temperature and pinprick sensation was normal. Rapid alternating movements were normal. There was no dysmetria. There was no intention tremor. Gait was deferred due to bedrest. Arm and leg reflexes were 2+ and symmetric. Carroll's sign was absent. Plantar responses were flexor. TRU WEIR NP Jun 02, 2018 08:42
[2018-06-02] MEDS: ASPIRIN 81 MG TAB PO SCH (09:00)
[2018-06-02] MEDS: DOCUSATE SODIUM 100 MG CAP PO SCH (09:00)
[2018-06-02] MEDS: MULTIVITAMINS THERAPEUTIC TAB PO SCH (09:00)
[2018-06-02] MEDS: ISOSORBIDE DINITRATE 10 MG TAB PO SCH (09:48)
--- NOTE | 2018-06-02 10:20 | CONS ---
Consult Date/Type/Reason Admit Date/Time May 31, 2018 at 15:30 Initial Consult Date Requesting Provider: DAVI KAHN MD Date/Time of Note DATE: 06/02/18 TIME: 10:18 Subjective NO acute events - pt comfortable - no CP now - could not do MRI with claustrophobia - timothy, but BP stable - no intervention from cardiac standpoint currently planned. ROS: No fever, no chills, no nausea, no vomiting, no diarrhea/constipation - + malaise Objective Vitals Vital Signs Date Temp Pulse Resp B/P (MAP) Pulse Ox O2 O2 Flow FiO2 Time Delivery Rate 06/02/18 52 08:00 06/02/18 98.0 22 113/56 96 Room Air 07:24 (75) 06/01/18 10 11:10 Intake and Output 06/01/18 06/01/18 06/02/18 1515:00 23:00 07:00 IntakeIntake Total 1300 ml 300 ml BalanceBalance 1300 ml 300 ml Exam General: WN/WD/NAD, AOx 3 HEENT: Unicetric/atraumatic/EOMI (follow commands) NECK: JVD elevated, no thyromegaly Lymph: no lymphadenopathy HEART: regular with no S3, II/ systolic murmur at apex LUNGS: Coarse sounds ABD: soft, NT, ND, +BS : Intact Neuro: non focal SKIN: chronic changes EXT: trace edema Results/Medications Result Diagram: 06/01/18 1714 06/01/18 0606 Results 24 hrs Laboratory Tests Test 06/01/18 17:14 Platelet Count 57 L Prothrombin Time 14.4 Prothrombin Time Ratio 1.1 INR International Normalized Ratio 1.11 Activated Partial Thromboplast Time 29.3 Thrombin Time 16.3 Home Meds Active Scripts Hydrocodone Bit-Acetaminophen (Hydrocodone Bit-APAP) 5-325MG Tablet, 1 TAB PO Q4H PRN for MODERATE PAIN LEVEL 4-6, #20 TAB Prov:BRITTANEY REESE 04/11/18 Reported Medications Nitroglycerin* (Nitrostat*) 0.4 Mg Tab.subl, 0.4 MG SL Q5MIN PRN for CHEST PAIN, BOTTLE 05/28/18 Multivitamins* (Theragran*) 1 Tab Tab, 1 TAB PO DAILY, TAB 05/28/18 Lorazepam* (Lorazepam*) 0.5 Mg Tablet, 0.5 MG PO HS PRN for ANXIETY, TAB 05/28/18 Aspirin Ec (Aspir 81) 81 Mg Tablet.dr, 81 MG PO DAILY, #30 TAB 05/28/18 Lactose-Reduced Food (Boost) 237 Ml Liquid 05/28/18 Albuterol Sulfate* (Ventolin HFA*) 18 Gm Hfa.aer.ad, 2 PUFF INHALATION Q4H, #1 INHALER 05/28/18 Buprenorphine (Butrans) 1 Each Patch.tdwk, 1 EACH TD Q7DAYS 04/09/18 Docusate Sodium* (Colace*) 100 Mg Capsule, 100 MG PO QAM, #30 CAP 04/09/18 Omeprazole* (Omeprazole*) 40 Mg Capsule.dr, 40 MG PO AC BREAKFAST, #30 CAP 04/09/18 Medications Current Medications Albuterol (Ventolin Hfa) 2 puff Q4H INH Last administered on 06/02/18 05:00; Admin Dose 2 PUFF; Start 05/29/18 at 01:00 Docusate Sodium (Colace) 100 mg QAM PO Last administered on 05/31/18 08:32; Admin Dose 100 MG; Start 05/29/18 at 09:00 Nitroglycerin (Nitroglycerin (Sl Tab) 0.4 Mg) 1 tab [id number] PRN SL CHEST PAIN; Start 05/29/18 at 01:00 Morphine Sulfate (morphine) 4 mg Q4 PRN IV PAIN LEVEL 6-10 Last administered on 06/02/18at 07:38; Admin Dose 4 MG; Start 05/29/18 at 01:00 Acetaminophen (Tylenol Tab) 650 mg Q4 PRN PO FEVER GREATER THAN 100.6; Start 05/29/18 at 01:00 Acetaminophen/ Hydrocodone Bitart ([place] (5/325)) 1 tab Q4H PRN PO MODERATE PAIN LEVEL 4-6 Last administered on 06/01/18at 21:17; Admin Dose 1 TAB; Start 05/29/18 at 18:30 Lorazepam (Ativan) 0.5 mg HS PRN PO ANXIETY; Start 05/29/18 at 18:30 Multivitamins Therapeutic (Theragran) 1 tab DAILY PO Last administered on 05/31/18at 08:32; Admin Dose 1 TAB; Start 05/30/18 at 09:00 Pantoprazole (Protonix Tab) 40 mg AC BREAKFAST PO Last administered on 05/31/18at 06:41; Admin Dose 40 MG; Start 05/30/18 at 07:25 Metoclopramide HCl (Reglan) 10 mg Q6H PRN IV NAUSEA AND/OR VOMITING Last administered on 05/31/18at 16:38; Admin Dose 10 MG; Start 05/29/18 at 19:00 Aspirin (Aspirin) 81 mg DAILY PO Last administered on 05/31/18at 08:32; Admin Dose 81 MG; Start 05/30/18 at 09:00 Isosorbide Dinitrate (Isordil) 10 mg TID PO Last administered on 06/02/18at 0 9:48; Admin Dose 10 MG; Start 05/30/18 at 21:00 Ondansetron HCl (Zofran Inj) 4 mg Q6H PRN IV NAUSEA AND/OR VOMITING Last administered on 06/02/18at 00:11; Admin Dose 4 MG; Start 05/31/18 at 17:00 Assessment/Plan Hospital Course (Demo Recall) 1. Chest pain, assess for acute coronary syndrome.-neg trop x 3 - r/o AK, no interaction planned. 2. Abnormal echocardiogram, assess for acute coronary syndrome.-neg trop x 3. Lexiscan this admit with no ischemia. EF 52%, EF 45-50 by echo 3. History of stent in 2011. 4. Thrombocytopenia/pancytopenia 5. Bradycardia-NL TSH - rate controlled - no Class I inaction for pacer. 6. N/V PANFILO RAMIREZ MD Jun 02, 2018 10:20
--- NOTE | 2018-06-02 12:32 | PN ---
Date/Time of Note Date/Time of Note DATE: 06/02/18 TIME: 12:19 Assessment/Plan VTE Prophylaxis Risk score (from Ns)>0 risk: 1 SCD applied (from [facility]): Yes SCD contraindicated: other Pharmacological prophylaxis: other Lines/Catheters IV C[facility]ter Type (from [facility] Sal[place] Lock Urinary Cath still in place: No Assessment/Plan Assessment/Plan - acute Headache- better today - CT brain w/o contrast- fu results - neuro follows - Mri Brain ordered- refused - Lumbar Puncture today - Intractable nausea/vomitting- resolved - GI follows - sp EGD yesterday - Neutropenia- neutropenic precautions - Hx Thyroid cancer; pt of Dr Harrison - Hematology/Oncologist - Dr white notified - will do Lactic Acid stat - Chest Pain r/ ACS- none now - per cardiology consult - Patient seen in collaboration with Dr Gross. staff. Result Diagram: 06/01/18 1714 06/01/18 0606 Results 24hrs Laboratory Tests Test 06/01/18 17:14 Platelet Count 57 L Prothrombin Time 14.4 Prothrombin Time Ratio 1.1 INR International Normalized Ratio 1.11 Activated Partial Thromboplast Time 29.3 Thrombin Time 16.3 Subjective 24 Hr Interval Summary Free Text/Dictation WBC- 1.6; will get oncologist Exam/Review of Systems Exam Vitals Vital Signs Date Temp Pulse Resp B/P (MAP) Pulse Ox O2 O2 Flow FiO2 Time Delivery Rate 06/02/18 98.0 60 22 99/57 (71) 96 Room Air 11:32 06/01/18 10 11:10 Intake and Output 06/01/18 06/01/18 06/02/18 1515:00 23:00 07:00 IntakeIntake Total 1300 ml 300 ml BalanceBalance 1300 ml 300 ml Constitutional: alert, oriented, well developed Psych: nl mood/affect Eyes: nl lids, nl sclera ENMT: nl external ears & nose Neck: non-tender Respiratory: clear to auscultation Cardiovascular: nl pulses, other (s1s2) Gastrointestinal: soft, non-tender Musculoskeletal: nl extremities to inspection Extremities: normal pulses Neurological: nl mental status, nl speech Skin: nl turgor Lymph: nontender Results Results 24hrs Laboratory Tests Test 06/01/18 17:14 Platelet Count 57 L Prothrombin Time 14.4 Prothrombin Time Ratio 1.1 INR International Normalized Ratio 1.11 Activated Partial Thromboplast Time 29.3 Thrombin Time 16.3 Medications Medication Current Medications Albuterol (Ventolin Hfa) 2 puff Q4H INH Last administered on 06/02/18 10:36; Admin Dose 2 PUFF; Start 05/29/18 at 01:00 Docusate Sodium (Colace) 100 mg QAM PO Last administered on 05/31/18 08:32; Admin Dose 100 MG; Start 05/29/18 at 09:00 Nitroglycerin (Nitroglycerin (Sl Tab) 0.4 Mg) 1 tab [id number] PRN SL CHEST PAIN; Start 05/29/18 at 01:00 Morphine Sulfate (morphine) 4 mg Q4 PRN IV PAIN LEVEL 6-10 Last administered on 06/02/18 07:38; Admin Dose 4 MG; Start 05/29/18 at 01:00 Acetaminophen (Tylenol Tab) 650 mg Q4 PRN PO FEVER GREATER THAN 100.6; Start 05/29/18 at 01:00 Acetaminophen/ Hydrocodone Bitart ([place] (5/325)) 1 tab Q4H PRN PO MODERATE PAIN LEVEL 4-6 Last administered on 06/01/18 21:17; Admin Dose 1 TAB; Start 05/29/18 at 18:30 Lorazepam (Ativan) 0.5 mg HS PRN PO ANXIETY; Start 05/29/18 at 18:30 Multivitamins Therapeutic (Theragran) 1 tab DAILY PO Last administered on 05/31/18 08:32; Admin Dose 1 TAB; Start 05/30/18 at 09:00 Pantoprazole (Protonix Tab) 40 mg AC BREAKFAST PO Last administered on 05/31/18 06:41; Admin Dose 40 MG; Start 05/30/18 at 07:25 Metoclopramide HCl (Reglan) 10 mg Q6H PRN IV NAUSEA AND/OR VOMITING Last administered on 05/31/18 16:38; Admin Dose 10 MG; Start 05/29/18 at 19:00 Aspirin (Aspirin) 81 mg DAILY PO Last administered on 05/31/18 08:32; Admin Dose 81 MG; Start 05/30/18 at 09:00 Isosorbide Dinitrate (Isordil) 10 mg TID PO Last administered on 4/27/19at 09:48; Admin Dose 10 MG; Start 05/30/18 at 21:00 Ondansetron HCl (Zofran Inj) 4 mg Q6H PRN IV NAUSEA AND/OR VOMITING Last administered on 06/02/18at 00:11; Admin Dose 4 MG; Start 05/31/18 at 17:00 CAMILO RAMSAY Jun 02, 2018 12:29
[2018-06-02] MEDS ORDERED: LIDOCAINE 1% (MPF) 5 ML VIAL ONE (12:37)
[2018-06-02] MEDS ORDERED: SOD CHLORIDE 0.9% 500 ML IV ONE (13:00)
--- NOTE | 2018-06-02 16:30 | CONS ---
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 Patient admitted for chest pain and headache and we are consulted for pancytopenia. # Pancytopenia 2/2 hep C cirrhosis -No need for growth factor at this time as patient is not acutely infected. If found to have infection then may consider growth factor at that time. -Counts are stable but keep hgb > 7 and plt > 20. -Patient has clear documentation of cirrhosis which is the cause of the patient's pancytopenia. # Hx of stage III rectal cancer -Patient's last scan was in 01/2018 and it was negative for recurrence. -Patient has an outpatient appointment with Dr. Harrison and patient due for a PET scan upon next visit. Will follow up in outpatient setting. 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 -There is no adjuvant chemotherapy indicated for this type of localized thyroid cancer. -Will follow up pathology in outpatient setting. Thank you to Dr. Thurman for allowing me to participate in the care of this patient. A total of 40 minutes was spent in consultation with this patient and all her questions were answered. 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 Patient also had a thyroid nodule as well that was being worked up since 12/2017 and had a biopsy done showing atypical malignant cells and had a partial thyroidectomy by Dr. Cook with a possible follicular lymphoma. Patient is admitted for chest pain along with headache. Chest pain workup underway. CT head negative and LP done and studies pending. Neurology is on board. PMH: as above PSxH: as above SH: denies tobacco, ETOH, or IVDA. FH: denies any family history of blood disorders or cancers. Meds: see list All: see list Constitutional: no complaints, improved Eyes: no complaints ENT: no complaints Respiratory: no complaints Cardiovascular: chest pain Gastrointestinal: no complaints Genitourinary: no complaints Musculoskeletal: no complaints Skin: no complaints Neurologic: headache Endocrine: no complaints Lymphatic: no complaints Psychological: no complaints, nl mood/affect Immunologic: no complaints Past Medical History Home Meds Active Scripts Hydrocodone Bit-Acetaminophen (Hydrocodone Bit-APAP) 5-325MG Tablet, 1 TAB PO Q4H PRN for MODERATE PAIN LEVEL 4-6, #20 TAB Prov:BRITTANEY REESE 04/11/18 Reported Medications Nitroglycerin* (Nitrostat*) 0.4 Mg Tab.subl, 0.4 MG SL Q5MIN PRN for CHEST PAIN, BOTTLE 05/28/18 Multivitamins* (Theragran*) 1 Tab Tab, 1 TAB PO DAILY, TAB 05/28/18 Lorazepam* (Lorazepam*) 0.5 Mg Tablet, 0.5 MG PO HS PRN for ANXIETY, TAB 05/28/18 Aspirin Ec (Aspir 81) 81 Mg Tablet.dr, 81 MG PO DAILY, #30 TAB 05/28/18 Lactose-Reduced Food (Boost) 237 Ml Liquid 05/28/18 Albuterol Sulfate* (Ventolin HFA*) 18 Gm Hfa.aer.ad, 2 PUFF INHALATION Q4H, #1 INHALER 05/28/18 Buprenorphine (Butrans) 1 Each Patch.tdwk, 1 EACH TD Q7DAYS 04/09/18 Docusate Sodium* (Colace*) 100 Mg Capsule, 100 MG PO QAM, #30 CAP 04/09/18 Omeprazole* (Omeprazole*) 40 Mg Capsule.dr, 40 MG PO AC BREAKFAST, #30 CAP 04/09/18 Medications Current Medications Albuterol (Ventolin Hfa) 2 puff Q4H INH Last administered on 06/02/18at 12:33; Admin Dose 2 PUFF; Start 05/29/18 at 01:00 Docusate Sodium (Colace) 100 mg QAM PO Last administered on 05/31/18at 08:32; Admin Dose 100 MG; Start 05/29/18 at 09:00 Nitroglycerin (Nitroglycerin (Sl Tab) 0.4 Mg) 1 tab [id number] PRN SL CHEST PAIN; Start 05/29/18 at 01:00 Morphine Sulfate (morphine) 4 mg Q4 PRN IV PAIN LEVEL 6-10 Last administered on 06/02/18 12:30; Admin Dose 4 MG; Start 05/29/18 at 01:00 Acetaminophen (Tylenol Tab) 650 mg Q4 PRN PO FEVER GREATER THAN 100.6; Start 05/29/18 at 01:00 Acetaminophen/ Hydrocodone Bitart ([place] (5/325)) 1 tab Q4H PRN PO MODERATE PAIN LEVEL 4-6 Last administered on 06/01/18at 21:17; Admin Dose 1 TAB; Start 05/29/18 at 18:30 Lorazepam (Ativan) 0.5 mg HS PRN PO ANXIETY; Start 05/29/18 at 18:30 Multivitamins Therapeutic (Theragran) 1 tab DAILY PO Last administered on 05/31/18at 08:32; Admin Dose 1 TAB; Start 05/30/18 at 09:00 Pantoprazole (Protonix Tab) 40 mg AC BREAKFAST PO Last administered on 05/31/18 06:41; Admin Dose 40 MG; Start 05/30/18 at 07:25 Metoclopramide HCl (Reglan) 10 mg Q6H PRN IV NAUSEA AND/OR VOMITING Last administered on 05/31/18at 16:38; Admin Dose 10 MG; Start 05/29/18 at 19:00 Aspirin (Aspirin) 81 mg DAILY PO Last administered on 05/31/18 08:32; Admin Dose 81 MG; Start 05/30/18 at 09:00 Ondansetron HCl (Zofran Inj) 4 mg Q6H PRN IV NAUSEA AND/OR VOMITING Last administered on 06/02/18at 00:11; Admin Dose 4 MG; Start 05/31/18 at 17:00 Allergies: Coded Allergies: No Known Drug Allergies (Verified Allergy, Severe, 04/09/18) acetaminophen (Verified Adverse Reaction, Severe, CANNOT TAKE BEACUSE OF CIRRHOSIS, 04/09/18) ibuprofen (Verified Adverse Reaction, Severe, CANNOT TAKE BEACUSE CAUSES G I BLEED, 04/09/18) Social History Smoking Status: Never smoker Exam/Review of Systems Exam Vitals Vital Signs Date Temp Pulse Resp B/P (MAP) Pulse Ox O2 O2 Flow FiO2 Time Delivery Rate 06/02/18 55 12:00 06/02/18 98.0 22 99/57 (71) 96 Room Air 11:32 06/01/18 10 11:10 Intake and Output 06/01/18 06/01/18 06/02/18 1515:00 23:00 07:00 IntakeIntake Total 1300 ml 300 ml BalanceBalance 1300 ml 300 ml Constitutional: alert, oriented, well developed Psych: no complaints, nl mood/affect Head: normocephalic, atraumatic Eyes: nl conjunctiva, EOMI, nl lids, nl sclera, PERRL ENMT: nl external ears & nose, nl lips & teeth, nl nasal mucosa & septum Neck: supple, non-tender Respiratory: clear to auscultation, normal air movement Cardiovascular: regular rate and rhythm, nl pulses Gastrointestinal: soft, nl liver, spleen, non-tender Musculoskeletal: nl extremities to inspection, nl gait and stance Extremities: normal pulses Neurological: [employer] II-XII intact, nl mental status, nl speech, nl strength Skin: nl turgor; No rash or lesions Lymph: nl lymph nodes Results Result Diagram: 06/01/18 1714 06/01/18 0606 Results 24hrs Laboratory Tests Test 06/01/18 17:14 06/02/18 13:23 06/02/18 14:04 Platelet Count 57 L Prothrombin Time 14.4 Prothrombin Time Ratio 1.1 INR International Normalized Ratio 1.11 Activated Partial Thromboplast Time 29.3 Thrombin Time 16.3 CSF Tubes Submitted 4 CSF Volume 10.5 CSF Appearance CLEAR CSF Color COLORLESS CSF WBC 2 CSF RBC 0 CSF Cell Count Tube # TUBE#1 CSF Mononuclear Cells % (Auto) 100.0 CSF Polynuclear WBCs (%) 0.0 CSF Glucose 51 CSF Total Protein 46 Erythrocyte Sedimentation Rate 17 Lactic Acid Level 1.3 Medications Medication Current Medications Albuterol (Ventolin Hfa) 2 puff Q4H INH Last administered on 06/02/18at 12:33; Admin Dose 2 PUFF; Start 05/29/18 at 01:00 Docusate Sodium (Colace) 100 mg QAM PO Last administered on 05/31/18at 08:32; Admin Dose 100 MG; Start 05/29/18 at 09:00 Nitroglycerin (Nitroglycerin (Sl Tab) 0.4 Mg) 1 tab [id number] PRN SL CHEST PAIN; Start 05/29/18 at 01:00 Morphine Sulfate (morphine) 4 mg Q4 PRN IV PAIN LEVEL 6-10 Last administered on 06/02/18 12:30; Admin Dose 4 MG; Start 05/29/18 at 01:00 Acetaminophen (Tylenol Tab) 650 mg Q4 PRN PO FEVER GREATER THAN 100.6; Start 05/29/18 at 01:00 Acetaminophen/ Hydrocodone Bitart ([place] (5/325)) 1 tab Q4H PRN PO MODERATE PAIN LEVEL 4-6 Last administered on 06/01/18 21:17; Admin Dose 1 TAB; Start 05/29/18 at 18:30 Lorazepam (Ativan) 0.5 mg HS PRN PO ANXIETY; Start 05/29/18 at 18:30 Multivitamins Therapeutic (Theragran) 1 tab DAILY PO Last administered on 05/31/18 08:32; Admin Dose 1 TAB; Start 05/30/18 at 09:00 Pantoprazole (Protonix Tab) 40 mg AC BREAKFAST PO Last administered on 05/31/18 06:41; Admin Dose 40 MG; Start 05/30/18 at 07:25 Metoclopramide HCl (Reglan) 10 mg Q6H PRN IV NAUSEA AND/OR VOMITING Last administered on 05/31/18 16:38; Admin Dose 10 MG; Start 05/29/18 at 19:00 Aspirin (Aspirin) 81 mg DAILY PO Last administered on 05/31/18 08:32; Admin Dose 81 MG; Start 05/30/18 at 09:00 Ondansetron HCl (Zofran Inj) 4 mg Q6H PRN IV NAUSEA AND/OR VOMITING Last administered on 06/02/18 00:11; Admin Dose 4 MG; Start 05/31/18 at 17:00 JUSTIN KUO DO Jun 02, 2018 16:30
--- NOTE | 2018-06-02 23:47 | CONS ---
DATE OF ADMISSION: 05/31/2018 DATE OF CONSULTATION: 05/31/2018 HISTORY OF PRESENT ILLNESS: The patient was seen by me on 05/31/2018 at the request of the primary nader yeung because of vomiting and nausea. The detailed history includes that she has other multiple medi brian problems which includes: 1. Rectal cancer which was operated and she has a colostomy. The patient was evaluated in [facility] for a repair of her colostomy hernia and she was supposed to have a ornamental ironworking supervisor of the rectum and colon after the surgery, but she is still waiting to hear from [facility]. 2. She has history of hepatitis C cirrhosis. 3. She has pancytopenia. 4. 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 No chemotherapy contemplated at this time. 5. No history of alcoholism. PHYSICAL EXAMINATION: GENERAL: The patient is alert, well built. VITAL SIGNS: Afebrile. CARDIOVASCULAR: Normal heart sounds. RESPIRATORY: Normal breath sounds. ABDOMEN: Showed a colostomy. LABORATORY WORKUP: Hemoglobin was 12.4 on the , today is 11.8, WBC count dropped down to 1.6, pl atelet count dropped down to 50,000. The prothrombin time is 14.4. The CAT scan of the abdomen shows evidence of no bowel obstruction status post a left hemicolectomy, mild thickening of the wall of the stomach. Status post cholecystectomy, cirrhosis is noted with splenomegaly. CLINICAL IMPRESSION: Essentially as mentioned above: 1. Cirrhosis due to hepatitis C. 2. 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 3. Status post left colon resection for rectal cancer. 4. Pancytopenia due to cirrhosis. PLAN: Continue management according to the other consultants. Dictated By: PAULA FARRIS/JUANITO Conf#: [id number] DID#: [id number]
[2018-06-03] VITALS (12 sets, daily range): BP systolic 101–112; BP diastolic 55–61; PULSE 56–76; RESP 17–22
[2018-06-03] MEDS: ALBUTEROL HFA 8 GM INHALER INH SCH ×6 (01:50→20:41)
[2018-06-03] MEDS: morphine 4 MG/ML VIAL IV PRN ×5 (01:59→21:37)
[2018-06-03] MEDS: PANTOPRAZOLE (EC) 40 MG TAB PO SCH (06:27)
[2018-06-03] MEDS: MULTIVITAMINS THERAPEUTIC TAB PO SCH (08:33)
[2018-06-03] MEDS: ASPIRIN 81 MG TAB PO SCH (08:33)
[2018-06-03] MEDS: DOCUSATE SODIUM 100 MG CAP PO SCH (08:33)
--- NOTE | 2018-06-03 10:15 | CONS ---
Assessment/Plan Assessment/Plan Hospital Course 57 yo F with hx of metastatic colon CA and other comorbidities who presents for evaluation of chest pain, dizziness, and other sx. She was additionally noted to have severe headaches... for which neurology is consulted. 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 A nonspecific headache in the context of systemic illness is additionally considered. CTH is unrevealing. P: Await MRI brain for further characterization Await CSF cytology Pain and other medical management per primary Will follow clinically, to recommend neurologic studies, as necessary Consultation Date/Type/Reason Admit Date/Time May 31, 2018 at 15:30 Type of Consult Neurology Reason for Consultation severe headache Requesting Provider: DAVI KAHN MD Date/Time of Note DATE: 06/03/18 TIME: 10:15 24 HR Interval Summary Free Text/Dictation Continues acute care. S/p LP. Exam Vital Signs Vitals Vital Signs Date Temp Pulse Resp B/P (MAP) Pulse Ox O2 O2 Flow FiO2 Time Delivery Rate 06/03/18 76 08:00 06/03/18 98.4 22 101/58 96 Room Air 07:19 (72) 06/01/18 10 11:10 Intake and Output 06/02/18 06/02/18 06/03/18 1515:00 23:00 07:00 IntakeIntake Total 500 ml 600 ml BalanceBalance 500 ml 600 ml Exam PE: Gen Appearance: No Apparent Distress HEENT: Normocephalic Cardiovascular: Regular rate Lungs: Clear bilaterally Abdomen: Soft Extremities: Dry NE: The patient was alert and oriented. Language was normal. Fund of knowledge was normal. Pupils were equal and reactive to light. There was no afferent pupillary defect. Visual lipscomb were normal. Funduscopic examination was limited. Extra-ocular movements were full. Ptosis was absent. There was no nystagmus. Facial sensation was normal. Face was symmetric with normal strength. Hearing was intact. Palate movements were normal. Neck strength was normal. There was normal tongue bulk and speed of movement. Tone was normal. Muscle bulk was normal. I did not see fasciculations. Arms and legs were strong. Vibration sensation was normal. Temperature and pinprick sensation was normal. Rapid alternating movements were normal. There was no dysmetria. There was no intention tremor. Gait was deferred due to bedrest. Arm and leg reflexes were 2+ and symmetric. Carroll's sign was absent. Plantar responses were flexor. TRU WEIR NP Jun 03, 2018 10:15 CHERRI WATSON Jun 03, 2018 19:30
--- NOTE | 2018-06-03 14:29 | CONS ---
Consult Date/Type/Reason Admit Date/Time May 31, 2018 at 15:30 Initial Consult Date Requesting Provider: DAVI KAHN MD Date/Time of Note DATE: 06/03/18 TIME: 14:28 Subjective NO acute events - pt stable - no CP- dispo planned. ROS: No fever, no chills, no nausea, no vomiting, no diarrhea/constipation No recent weight changes No chest pain, no PND, no orthopnea - a little dizzy, better overall No dizziness, blurred vision No thirst, no heat or cold intolerance Objective Vitals Vital Signs Date Temp Pulse Resp B/P (MAP) Pulse Ox O2 O2 Flow FiO2 Time Delivery Rate 06/03/18 61 12:00 06/03/18 98.9 22 101/55 96 Room Air 11:20 (70) 06/01/18 10 11:10 Intake and Output 06/02/18 06/02/18 06/03/18 1515:00 23:00 07:00 IntakeIntake Total 500 ml 600 ml BalanceBalance 500 ml 600 ml Exam General: WN/WD/NAD, AOx 3 HEENT: Unicetric/atraumatic/EOMI (follows commands) NECK: JVD elevated, no thyromegaly Lymph: no lymphadenopathy HEART: regular with no S3, II/ systolic murmur at apex LUNGS: Coarse sounds ABD: soft, NT, ND, +BS : Intact Neuro: non focal SKIN: chronic changes EXT: trace edema Results/Medications Result Diagram: 06/03/18 0542 06/03/18 0542 Results 24 hrs Laboratory Tests Test 06/03/18 05:42 White Blood Count 2.3 #L Red Blood Count 4.21 Hemoglobin 11.7 L Hematocrit 36.9 L Mean Corpuscular Volume 87.6 Mean Corpuscular Hemoglobin 27.8 L Mean Corpuscular Hemoglobin Concent 31.7 L Red Cell Distribution Width 13.7 Platelet Count 57 L Mean Platelet Volume 11.0 H Immature Granulocytes % 0.000 L Neutrophils % Segmented Neutrophils % (Manual) 42 Band Neutrophils % (Manual) 2 Lymphocytes % Lymphocytes % (Manual) 37 Reactive Lymphocytes % (Manual) 6 H Monocytes % Monocytes % (Manual) 6 Eosinophils % Eosinophils % (Manual) 7 Basophils % Nucleated Red Blood Cells % 0.0 Immature Granulocytes # 0.000 Neutrophils # Neutrophils # (Manual) 1.0 L Band Neutrophils # 0.0 Lymphocytes (Manual) 0.8 Lymphocytes # Reactive Lymphocytes # 0.1 H Monocytes # Monocytes # (Manual) 0.1 L Eosinophils # Basophils # Nucleated Red Blood Cells # Platelet Estimate SIG DECREASED Polychromasia 2+ Poikilocytosis 1+ Anisocytosis 1+ Microcytosis 1+ Sodium Level 144 Potassium Level 4.0 Chloride Level 107 Carbon Dioxide Level 29 Anion Gap 8 Blood Urea Nitrogen 21 H Creatinine 0.51 Est Glomerular Filtrat Rate mL/min > 60 Glucose Level 86 Calcium Level 9.5 Total Bilirubin 0.1 L Direct Bilirubin 0.00 Indirect Bilirubin 0.1 Aspartate Amino Transf (AST/SGOT) 23 Alanine Aminotransferase (ALT/SGPT) 24 Alkaline Phosphatase 60 Total Protein 7.3 Albumin 3.8 Globulin 3.50 H Albumin/Globulin Ratio 1.08 Home Meds Active Scripts Hydrocodone Bit-Acetaminophen (Hydrocodone Bit-APAP) 5-325MG Tablet, 1 TAB PO Q4H PRN for MODERATE PAIN LEVEL 4-6, #20 TAB Prov:LESLEE REESEETLANA 04/11/18 Reported Medications Nitroglycerin* (Nitrostat*) 0.4 Mg Tab.subl, 0.4 MG SL Q5MIN PRN for CHEST PAIN, BOTTLE 05/28/18 Multivitamins* (Theragran*) 1 Tab Tab, 1 TAB PO DAILY, TAB 05/28/18 Lorazepam* (Lorazepam*) 0.5 Mg Tablet, 0.5 MG PO HS PRN for ANXIETY, TAB 05/28/18 Aspirin Ec (Aspir 81) 81 Mg Tablet.dr, 81 MG PO DAILY, #30 TAB 05/28/18 Lactose-Reduced Food (Boost) 237 Ml Liquid 05/28/18 Albuterol Sulfate* (Ventolin HFA*) 18 Gm Hfa.aer.ad, 2 PUFF INHALATION Q4H, #1 INHALER 05/28/18 Buprenorphine (Butrans) 1 Each Patch.tdwk, 1 EACH TD Q7DAYS 04/09/18 Docusate Sodium* (Colace*) 100 Mg Capsule, 100 MG PO QAM, #30 CAP 04/09/18 Omeprazole* (Omeprazole*) 40 Mg Capsule.dr, 40 MG PO AC BREAKFAST, #30 CAP 04/09/18 Medications Current Medications Albuterol (Ventolin Hfa) 2 puff Q4H INH Last administered on 06/03/18 12:55; Admin Dose 2 PUFF; Start 05/29/18 at 01:00 Docusate Sodium (Colace) 100 mg QAM PO Last administered on 06/03/18 08:33; Admin Dose 100 MG; Start 05/29/18 at 09:00 Nitroglycerin (Nitroglycerin (Sl Tab) 0.4 Mg) 1 tab [id number] PRN SL CHEST PAIN; Start 05/29/18 at 01:00 Morphine Sulfate (morphine) 4 mg Q4 PRN IV PAIN LEVEL 6-10 Last administered on 06/03/18 12:55; Admin Dose 4 MG; Start 05/29/18 at 01:00 Acetaminophen (Tylenol Tab) 650 mg Q4 PRN PO FEVER GREATER THAN 100.6; Start 05/29/18 at 01:00 Acetaminophen/ Hydrocodone Bitart ([place] (5/325)) 1 tab Q4H PRN PO MODERATE PAIN LEVEL 4-6 Last administered on 06/01/18 21:17; Admin Dose 1 TAB; Start 05/29/18 at 18:30 Lorazepam (Ativan) 0.5 mg HS PRN PO ANXIETY; Start 05/29/18 at 18:30 Multivitamins Therapeutic (Theragran) 1 tab DAILY PO Last administered on 06/03/18 08:33; Admin Dose 1 TAB; Start 05/30/18 at 09:00 Pantoprazole (Protonix Tab) 40 mg AC BREAKFAST PO Last administered on 06/03 06:27; Admin Dose 40 MG; Start 05/30/18 at 07:25 Metoclopramide HCl (Reglan) 10 mg Q6H PRN IV NAUSEA AND/OR VOMITING Last administered on 05/31/18 16:38; Admin Dose 10 MG; Start 05/29/18 at 19:00 Aspirin (Aspirin) 81 mg DAILY PO Last administered on 06/03/18 08:33; Admin Dose 81 MG; Start 05/30/18 at 09:00 Ondansetron HCl (Zofran Inj) 4 mg Q6H PRN IV NAUSEA AND/OR VOMITING Last administered on 06/02/18 00:11; Admin Dose 4 MG; Start 05/31/18 at 17:00 Assessment/Plan Hospital Course (Demo Recall) 1. Chest pain, assess for acute coronary syndrome.-neg trop x 3 - r/o OK, no interaction planned. Better now- no Cp noted. 2. Abnormal echocardiogram, assess for acute coronary syndrome.-neg trop x 3. Lexiscan this admit with no ischemia. EF 52%, EF 45-50 by echo - no intervention needed. 3. History of stent in 2011- on therapy, 4. Thrombocytopenia/pancytopenia 5. Bradycardia-NL TSH - rate controlled - no Class I inaction for pacer. 6. N/V PANFILO RAMIREZ MD Jun 03, 2018 14:29
--- NOTE | 2018-06-03 14:43 | PN ---
Date/Time of Note Date/Time of Note DATE: 06/03/18 TIME: 14:40 Assessment/Plan VTE Prophylaxis Risk score (from [facility] [place]0 risk: 2 SCD applied (from [facility] [place] Yes SCD contraindicated: other Pharmacological prophylaxis: other Pharm contraindication: other Lines/Catheters IV Catheter Type (from [facility] [place] Urinary Cath still in place: No Assessment/Plan Assessment/Plan - acute Headache- better today - CT brain w/o contrast- fu results - neuro follows - Mri Brain ordered- refused - Lumbar Puncture today - Intractable nausea/vomitting- resolved - GI follows - sp EGD yesterday - Neutropenia- neutropenic precautions - Hx Thyroid cancer; pt of Dr Harrison - SP seen by Hematology/Oncologist - Dr white - will do Lactic Acid stat - Chest Pain r/ ACS- none now - per cardiology consult - Patient seen in collaboration with Dr Gross. staff. Result Diagram: 06/03/18 0542 06/03/18 0542 Results 24hrs Laboratory Tests Test 06/03/18 05:42 White Blood Count 2.3 #L Red Blood Count 4.21 Hemoglobin 11.7 L Hematocrit 36.9 L Mean Corpuscular Volume 87.6 Mean Corpuscular Hemoglobin 27.8 L Mean Corpuscular Hemoglobin Concent 31.7 L Red Cell Distribution Width 13.7 Platelet Count 57 L Mean Platelet Volume 11.0 H Immature Granulocytes % 0.000 L Neutrophils % Segmented Neutrophils % (Manual) 42 Band Neutrophils % (Manual) 2 Lymphocytes % Lymphocytes % (Manual) 37 Reactive Lymphocytes % (Manual) 6 H Monocytes % Monocytes % (Manual) 6 Eosinophils % Eosinophils % (Manual) 7 Basophils % Nucleated Red Blood Cells % 0.0 Immature Granulocytes # 0.000 Neutrophils # Neutrophils # (Manual) 1.0 L Band Neutrophils # 0.0 Lymphocytes (Manual) 0.8 Lymphocytes # Reactive Lymphocytes # 0.1 H Monocytes # Monocytes # (Manual) 0.1 L Eosinophils # Basophils # Nucleated Red Blood Cells # Platelet Estimate SIG DECREASED Polychromasia 2+ Poikilocytosis 1+ Anisocytosis 1+ Microcytosis 1+ Sodium Level 144 Potassium Level 4.0 Chloride Level 107 Carbon Dioxide Level 29 Anion Gap 8 Blood Urea Nitrogen 21 H Creatinine 0.51 Est Glomerular Filtrat Rate mL/min > 60 Glucose Level 86 Calcium Level 9.5 Total Bilirubin 0.1 L Direct Bilirubin 0.00 Indirect Bilirubin 0.1 Aspartate Amino Transf (AST/SGOT) 23 Alanine Aminotransferase (ALT/SGPT) 24 Alkaline Phosphatase 60 Total Protein 7.3 Albumin 3.8 Globulin 3.50 H Albumin/Globulin Ratio 1.08 Subjective 24 Hr Interval Summary Respiratory: no complaints Cardiovascular: no complaints Gastrointestinal: no complaints Genitourinary: no complaints Exam/Review of Systems Exam Vitals Vital Signs Date Temp Pulse Resp B/P (MAP) Pulse Ox O2 O2 Flow FiO2 Time Delivery Rate 06/03/18 61 12:00 06/03/18 98.9 22 101/55 96 Room Air 11:20 (70) 06/01/18 10 11:10 Intake and Output 06/02/18 06/02/18 06/03/18 1414:59 22:59 06:59 IntakeIntake Total 500 ml BalanceBalance 500 ml Constitutional: alert, well developed Psych: nl mood/affect Eyes: nl lids, nl sclera ENMT: nl external ears & nose Neck: non-tender Respiratory: clear to auscultation Cardiovascular: nl pulses, other Results Results 24hrs Laboratory Tests Test 06/03/18 05:42 White Blood Count 2.3 #L Red Blood Count 4.21 Hemoglobin 11.7 L Hematocrit 36.9 L Mean Corpuscular Volume 87.6 Mean Corpuscular Hemoglobin 27.8 L Mean Corpuscular Hemoglobin Concent 31.7 L Red Cell Distribution Width 13.7 Platelet Count 57 L Mean Platelet Volume 11.0 H Immature Granulocytes % 0.000 L Neutrophils % Segmented Neutrophils % (Manual) 42 Band Neutrophils % (Manual) 2 Lymphocytes % Lymphocytes % (Manual) 37 Reactive Lymphocytes % (Manual) 6 H Monocytes % Monocytes % (Manual) 6 Eosinophils % Eosinophils % (Manual) 7 Basophils % Nucleated Red Blood Cells % 0.0 Immature Granulocytes # 0.000 Neutrophils # Neutrophils # (Manual) 1.0 L Band Neutrophils # 0.0 Lymphocytes (Manual) 0.8 Lymphocytes # Reactive Lymphocytes # 0.1 H Monocytes # Monocytes # (Manual) 0.1 L Eosinophils # Basophils # Nucleated Red Blood Cells # Platelet Estimate SIG DECREASED Polychromasia 2+ Poikilocytosis 1+ Anisocytosis 1+ Microcytosis 1+ Sodium Level 144 Potassium Level 4.0 Chloride Level 107 Carbon Dioxide Level 29 Anion Gap 8 Blood Urea Nitrogen 21 H Creatinine 0.51 Est Glomerular Filtrat Rate mL/min > 60 Glucose Level 86 Calcium Level 9.5 Total Bilirubin 0.1 L Direct Bilirubin 0.00 Indirect Bilirubin 0.1 Aspartate Amino Transf (AST/SGOT) 23 Alanine Aminotransferase (ALT/SGPT) 24 Alkaline Phosphatase 60 Total Protein 7.3 Albumin 3.8 Globulin 3.50 H Albumin/Globulin Ratio 1.08 Medications Medication Current Medications Albuterol (Ventolin Hfa) 2 puff Q4H INH Last administered on 06/03/18 12:55; Admin Dose 2 PUFF; Start 05/29/18 at 01:00 Docusate Sodium (Colace) 100 mg QAM PO Last administered on 06/03/18 08:33; Admin Dose 100 MG; Start 05/29/18 at 09:00 Nitroglycerin (Nitroglycerin (Sl Tab) 0.4 Mg) 1 tab [id number] PRN SL CHEST PAIN; Start 05/29/18 at 01:00 Morphine Sulfate (morphine) 4 mg Q4 PRN IV PAIN LEVEL 6-10 Last administered on 06/03/18 12:55; Admin Dose 4 MG; Start 05/29/18 at 01:00 Acetaminophen (Tylenol Tab) 650 mg Q4 PRN PO FEVER GREATER THAN 100.6; Start 05/29/18 at 01:00 Acetaminophen/ Hydrocodone Bitart ([place] (5/325)) 1 tab Q4H PRN PO MODERATE PAIN LEVEL 4-6 Last administered on 06/01/18 21:17; Admin Dose 1 TAB; Start 05/29/18 at 18:30 Lorazepam (Ativan) 0.5 mg HS PRN PO ANXIETY; Start 05/29/18 at 18:30 Multivitamins Therapeutic (Theragran) 1 tab DAILY PO Last administered on 06/03/18 08:33; Admin Dose 1 TAB; Start 05/30/18 at 09:00 Pantoprazole (Protonix Tab) 40 mg AC BREAKFAST PO Last administered on 06/03/18 06:27; Admin Dose 40 MG; Start 05/30/18 at 07:25 Metoclopramide HCl (Reglan) 10 mg Q6H PRN IV NAUSEA AND/OR VOMITING Last administered on 05/31/18 16:38; Admin Dose 10 MG; Start 05/29/18 at 19:00 Aspirin (Aspirin) 81 mg DAILY PO Last administered on 06/03/18at 08:33; Admin Dose 81 MG; Start 05/30/18 at 09:00 Ondansetron HCl (Zofran Inj) 4 mg Q6H PRN IV NAUSEA AND/OR VOMITING Last administered on 06/02/18at 00:11; Admin Dose 4 MG; Start 05/31/18 at 17:00 CAMILO RAMSAY Jun 03, 2018 14:43
--- NOTE | 2018-06-03 15:29 | PDOCDIS ---
Discharge Instructions CONDITION [id number] Patient Condition: [id number] Stable HOME CARE INSTRUCTIONS: [id number] Diet Instructions: [id number] ACTIVITY: [id number] Activity Restrictions: [id number] Slowly Increase Activity Rest between Activity Avoid heavy lifting Do not operate Machinery Do not operate Power Tool Avoid Heavy Housework [id number] Bathing Restrictions: [id number] Sponge Bath FOLLOW UP/APPOINTMENTS Follow-up Plan FU with primary x 1 wek Fu with neuro/ oncology/ solar process engineer as recommended Patient was provided with- Dr Harrison; Dr Rodrigues; Dr sapp; Dr hernandez contact info Call 911 or got to the nearest hospital if symptoms get worse- patient verbalized understanding dc instruction Dw CAMILO Greenwood Jun 03, 2018 15:29
[2018-06-04] VITALS (7 sets, daily range): BP systolic 102–123; BP diastolic 54–69; PULSE 54–70; RESP 20
[2018-06-04] MEDS: ALBUTEROL HFA 8 GM INHALER INH SCH ×3 (01:46→08:21)
[2018-06-04] MEDS: morphine 4 MG/ML VIAL IV PRN ×2 (01:55→06:22)
[2018-06-04] MEDS: ONDANSETRON 4 MG INJ IV PRN (01:55)
[2018-06-04] MEDS: PANTOPRAZOLE (EC) 40 MG TAB PO SCH (06:38)
--- NOTE | 2018-06-04 07:06 | PN ---
DATE: 06/02/2018 SUBJECTIVE: The patient is admitted with chest pain and no myocardial event documented. Upper endos copy because of vomiting and abdominal pain. Upper endoscopy showed evidence of gastritis and esophagitis. Biopsies done for H. pylori, which is pending. At this time, the patient is not having nausea, vomiting, abdominal pain. PHYSICAL EXAMINATION: GENERAL: The patient is alert. VITAL SIGNS: She is afebrile. CARDIOVASCULAR: Normal heart sounds. RESPIRATORY: Normal breath sounds. ABDOMEN: Unremarkable. She has a colostomy. CLINICAL IMPRESSION: 1. The patient's abdominal pain and vomiting is under control which is probably secondary to gastrit is. 2. History of hepatitis C cirrhosis. 3. History of rectal cancer, operated. She has got a colostomy. 4. She underwent a lumbar puncture because of the headaches. PLAN: Wait for the results. Meanwhile, continue symptomatic treatment. Dictated By: PAULA FARRIS/JUANITO Conf#: [id number] DID#: [id number]
[2018-06-04] MEDS: ASPIRIN 81 MG TAB PO SCH (08:20)
[2018-06-04] MEDS: MULTIVITAMINS THERAPEUTIC TAB PO SCH (08:21)
[2018-06-04] MEDS: DOCUSATE SODIUM 100 MG CAP PO SCH (08:21)
--- NOTE | 2018-06-04 10:48 | DS ---
Date/Time of Note Date/Time of Note DATE: 06/04/18 TIME: 10:48 Discharge Summary Admission/Discharge Info Admit Date/Time May 31, 2018 at 15:30 Discharge Date/Time Patient Condition: Stable Hx of Present Illness dizziness, chest pain, sob and nausea x2hrs HPI This is a 57-year-old female who is here for chest pain. She says that she is she is having pain similar to her prior CO that she had 2011 where she had a angioplasty. Pain is located in the substernal chest region with some radiation to the left scapula with some shortness of breath. She took a nitroglycerin at home but it did not help her pain. She also complains of nausea but no vomiting and some dizziness which is typical with her pain that she has with angina ROS All systems reviewed and are negative except as per history of present illness. Medications Home Meds Active Scripts Hydrocodone Bit-Acetaminophen (Hydrocodone Bit-APAP) 5-325MG Tablet, 1 TAB PO Q4H PRN for MODERATE PAIN LEVEL 4-6, #20 TAB Prov:BRITTANEY REESE 04/11/18 Reported Medications Buprenorphine (Butrans) 1 Each Patch.tdwk, 1 EACH TD Q7DAYS 04/09/18 Docusate Sodium* (Colace*) 100 Mg Capsule, 100 MG PO QAM, #30 CAP 04/09/18 Omeprazole* (Omeprazole*) 40 Mg Capsule.dr, 40 MG PO AC BREAKFAST, #30 CAP 04/09/18 Allergies Allergies: Coded Allergies: No Known Drug Allergies (Verified Allergy, Severe, 04/09/18) acetaminophen (Verified Adverse Reaction, Severe, CANNOT TAKE BEACUSE OF CIRRHOSIS, 04/09/18) ibuprofen (Verified Adverse Reaction, Severe, CANNOT TAKE BEACUSE CAUSES GI BLEED, 04/09/18) PMhx/Soc History of Surgery: Yes (COLON RESCECTION, COLOSTOMY, CHOLECYSTECTOMY,CSECTION, HERNIA) Anesthesia Reaction: No Hx Neurological Disorder: No Hx Respiratory Disorders: No Hx Cardiac Disorders: Yes (Heart attack ) Hx Psychiatric Problems: No Hx Miscellaneous Medical Probl: Yes (Thyroid sx) Hx Alcohol Use: No Hx Substance Use: No Hx Tobacco Use: No Smoking Status: Never smoker FmHx Family History: No coronary disease Home Meds Active Scripts Hydrocodone Bit-Acetaminophen (Hydrocodone Bit-APAP) 5-325MG Tablet, 1 TAB PO Q4H PRN for MODERATE PAIN LEVEL 4-6, #20 TAB Prov:BRITTANEY REESE 04/11/18 Reported Medications Nitroglycerin* (Nitrostat*) 0.4 Mg Tab.subl, 0.4 MG SL Q5MIN PRN for CHEST PAIN, BOTTLE 05/28/18 Multivitamins* (Theragran*) 1 Tab Tab, 1 TAB PO DAILY, TAB 05/28/18 Lorazepam* (Lorazepam*) 0.5 Mg Tablet, 0.5 MG PO HS PRN for ANXIETY, TAB 05/28/18 Aspirin Ec (Aspir 81) 81 Mg Tablet.dr, 81 MG PO DAILY, #30 TAB 05/28/18 Lactose-Reduced Food (Boost) 237 Ml Liquid 05/28/18 Albuterol Sulfate* (Ventolin HFA*) 18 Gm Hfa.aer.ad, 2 PUFF INHALATION Q4H, #1 INHALER 05/28/18 Buprenorphine (Butrans) 1 Each Patch.tdwk, 1 EACH TD Q7DAYS 04/09/18 Docusate Sodium* (Colace*) 100 Mg Capsule, 100 MG PO QAM, #30 CAP 04/09/18 Omeprazole* (Omeprazole*) 40 Mg Capsule.dr, 40 MG PO AC BREAKFAST, #30 CAP 04/09/18 Follow-up Plan FU with primary x 1 wek Fu with neuro/ oncology/ data center engineer as recommended Call 911 or got to the nearest hospital if symptoms get worse- patient verbalized understanding dc instruction Dw Dr Thurman Primary Care Provider [facility] Time spent on discharge: < 30 minutes CAMILO RAMSAY Jun 04, 2018 10:48
[2018-06-04] MEDS ORDERED: HYDR-4011 PO (10:53)
--- NOTE | 2018-06-04 11:09 | CONS ---
Assessment/Plan Assessment/Plan Hospital Course (Demo Recall) 57 yo F with PMH Hep C cirrhosis for over 20 years and had documentation of cirrhosis per US that was done in 01/2015 along with stage III rectal ca s/p APR and adjuvant xeloda and radiation who has been in remission and most recent CT scan done in 2018 was negative. Patient admitted for chest pain and headache and we are consulted for pancytopenia. # Pancytopenia 2/2 hep C cirrhosis -No need for growth factor at this time as patient is not acutely infected. If found to have infection then may consider growth factor at that time. -counts are stable -Counts are stable but keep hgb > 7 and plt > 20. -Patient has clear documentation of cirrhosis which is the cause of the patient's pancytopenia. # Hx of stage III rectal cancer -Patient's last scan was in 01/2018 and it was negative for recurrence. -Patient has an outpatient appointment with Dr. Villafana and patient due for a PET scan upon next visit. Will follow up in outpatient setting. 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 Clancy, patients concrete journeyman Thank you to Dr. Kahn for allowing me to participate in the care of this patient. A total of 40 minutes was spent in consultation with this patient and all her questions were answered. Consultation Date/Type/Reason Admit Date/Time May 31, 2018 at 15:30 Initial Consult Date 06/02/18 Type of Consult hematology Reason for Consultation thyroid cancer, pancytopenia Requesting Provider: DAVI KAHN MD Date/Time of Note DATE: 06/04/18 TIME: 11:03 24 HR Interval Summary Free Text/Dictation no acute overnight events. pt's headache has improved Exam/Review of Systems Exam Vitals Vital Signs Date Temp Pulse Resp B/P (MAP) Pulse Ox O2 O2 Flow FiO2 Time Delivery Rate 06/04/18 97.9 70 20 123/69 95 Room Air 10:55 (87) 06/01/18 10 11:10 Intake and Output 06/03/18 06/03/18 06/04/18 1515:00 23:00 07:00 IntakeIntake Total 700 ml 600 ml BalanceBalance 700 ml 600 ml Constitutional: alert, oriented Psych: no complaints Head: normocephalic Eyes: nl conjunctiva ENMT: nl external ears & nose Neck: supple Respiratory: clear to auscultation Cardiovascular: regular rate and rhythm Gastrointestinal: soft Musculoskeletal: nl extremities to inspection Extremities: normal pulses Results Result Diagram: 06/03/1842 06/03/18541 Medications Medication Current Medications Albuterol (Ventolin Hfa) 2 puff Q4H INH Last administered on 06/04/18 08:21; Admin Dose 2 PUFF; Start 05/29/18 at 01:00 Docusate Sodium (Colace) 100 mg QAM PO Last administered on 06/04/18 08:21; Admin Dose 100 MG; Start 05/29/18 at 09:00 Nitroglycerin (Nitroglycerin (Sl Tab) 0.4 Mg) 1 tab [id number] PRN SL CHEST PAIN; Start 05/29/18 at 01:00 Morphine Sulfate (morphine) 4 mg Q4 PRN IV PAIN LEVEL 6-10 Last administered on 06/04/18 06:22; Admin Dose 4 MG; Start 05/29/18 at 01:00 Acetaminophen (Tylenol Tab) 650 mg Q4 PRN PO FEVER GREATER THAN 100.6; Start 05/29/18 at 01:00 Acetaminophen/ Hydrocodone Bitart ([place] (5/325)) 1 tab Q4H PRN PO MODERATE PAIN LEVEL 4-6 Last administered on 06/01/18 21:17; Admin Dose 1 TAB; Start 05/29/18 at 18:30 Lorazepam (Ativan) 0.5 mg HS PRN PO ANXIETY; Start 05/29/18 at 18:30 Multivitamins Therapeutic (Theragran) 1 tab DAILY PO Last administered on 06/04/18 08:21; Admin Dose 1 TAB; Start 05/30/18 at 09:00 Pantoprazole (Protonix Tab) 40 mg AC BREAKFAST PO Last administered on 06/04/18 06:38; Admin Dose 40 MG; Start 05/30/18 at 07:25 Metoclopramide HCl (Reglan) 10 mg Q6H PRN IV NAUSEA AND/OR VOMITING Last administered on 05/31/18 16:38; Admin Dose 10 MG; Start 05/29/18 at 19:00 Aspirin (Aspirin) 81 mg DAILY PO Last administered on 06/04/18 08:20; Admin Dose 81 MG; Start 05/30/18 at 09:00 Ondansetron HCl (Zofran Inj) 4 mg Q6H PRN IV NAUSEA AND/OR VOMITING Last administered on 06/04/18at 01:55; Admin Dose 4 MG; Start 05/31/18 at 17:00 WILLIAM VILLAFANA M.D. Jun 04, 2018 11:09
--- NOTE | 2018-06-04 20:07 | CONS ---
Assessment/Plan Assessment/Plan Hospital Course 57 yo F with hx of metastatic colon CA and other comorbidities who presents for evaluation of chest pain, dizziness, and other sx. She was additionally noted to have severe headaches... for which neurology is consulted. 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 A nonspecific headache in the context of systemic illness is additionally considered. CTH is unrevealing. P: Await CSF cytology Pain and other medical management per primary Recommend MRI as an outpatient Will follow clinically Consultation Date/Type/Reason Admit Date/Time May 31, 2018 at 15:30 Type of Consult Neurology Reason for Consultation severe headache Requesting Provider: DAVI KAHN MD Date/Time of Note DATE: 06/04/18 TIME: 20:04 24 HR Interval Summary Free Text/Dictation Continues acute care. Pt states that her headache continues to improve, though it's still there. Also continues to refuse MRI but states that she's willing to get it done as an outpatient if it's an open MRI. Exam Vital Signs Vitals Vital Signs Date Temp Pulse Resp B/P (MAP) Pulse Ox O2 O2 Flow FiO2 Time Delivery Rate 06/04/18 97.9 70 20 123/69 95 Room Air 10:55 (87) 06/01/18 10 11:10 Intake and Output 06/03/18 06/03/18 06/04/18 1414:59 22:59 06:59 IntakeIntake Total 600 ml 700 ml 600 ml BalanceBalance 600 ml 700 ml 600 ml Exam PE: Gen Appearance: No Apparent Distress HEENT: Normocephalic Cardiovascular: Regular rate Lungs: Clear bilaterally Abdomen: Soft Extremities: Dry NE: The patient was alert and oriented. Language was normal. Fund of knowledge was normal. Pupils were equal and reactive to light. There was no afferent pupillary defect. Visual lipscomb were normal. Funduscopic examination was limited. Extra-ocular movements were full. Ptosis was absent. There was no nystagmus. Facial sensation was normal. Face was symmetric with normal strength. Hearing was intact. Palate movements were normal. Neck strength was normal. There was normal tongue bulk and speed of movement. Tone was normal. Muscle bulk was normal. I did not see fasciculations. Arms and legs were strong. Vibration sensation was normal. Temperature and pinprick sensation was normal. Rapid alternating movements were normal. There was no dysmetria. There was no intention tremor. Gait was deferred due to bedrest. Arm and leg reflexes were 2+ and symmetric. Carroll's sign was absent. Plantar responses were flexor. TRU WEIR NP Jun 04, 2018 20:07
== END 2018-06-04 11:22 | disposition home or self-care (01) | DRG 313 ==
LOC: E/R 15:33 → TEL 21:30 → EDBEDREQ 22:21 → OBSVTOIN 05-31 15:30
PROVIDERS: ADMIT Internal Medicine; ATTEND Internal Medicine
PROC: 0DB78ZX Excision of Stomach, Pylorus, Via Natural or Artificial Opening Endoscopic, Diagnostic (ICD-10-PCS; 2018-06-01)
PROC: 0DB58ZX Excision of Esophagus, Via Natural or Artificial Opening Endoscopic, Diagnostic (ICD-10-PCS; 2018-06-01)
PROC: 0DB68ZX Excision of Stomach, Via Natural or Artificial Opening Endoscopic, Diagnostic (ICD-10-PCS; principal; 2018-06-01 10:30)
PROC: 009U3ZX Drainage of Spinal Canal, Percutaneous Approach, Diagnostic (ICD-10-PCS; 2018-06-02)
PROC: B01BZZZ Fluoroscopy of Spinal Cord (ICD-10-PCS; 2018-06-02)
DX: R07.9 Chest pain, unspecified (principal); D61.818 Other pancytopenia; K29.70 Gastritis, unspecified, without bleeding; I10 Essential (primary) hypertension; I25.10 Atherosclerotic heart disease of native coronary artery without angina pectoris; I25.2 Old myocardial infarction; R00.1 Bradycardia, unspecified; B18.2 Chronic viral hepatitis C; K21.0 Gastro-esophageal reflux disease with esophagitis; K74.60 Unspecified cirrhosis of liver; R51 Headache; Z90.49 Acquired absence of other specified parts of digestive tract; Z93.3 Colostomy status; Z95.5 Presence of coronary angioplasty implant and graft; Z85.048 Personal history of other malignant neoplasm of rectum, rectosigmoid junction, and anus; Z92.3 Personal history of irradiation; Z92.21 Personal history of antineoplastic chemotherapy
CPT/HCPCS: 36415; 70450; 71045; 74176; 78452; 80048; 80053; 80061; 82945; 83605; 84157; 84443; 84484; 85025; 85049; 85610; 85651; 85670; 85730; 88305; 88312; 88313; 89051; 93005; 93017; 93306; 96374; 96375; G0378; A9500; A9505; J1650; J2270; J2405; J2765; J2785; J7040; J7042

== ENCOUNTER 2018-07-05 15:28 | Inpatient (IN) | payer OTHER ==
[~2018-07-05] VITALS: Ht 170.2 cm; Wt 77.1 kg
[~2018-07-05 15:28] MED LIST changes: +ALBU18HF INHALATION; +ASPI-535 PO; +HYDR-4011 PO; +LACT-121; +LORA0.5T PO; +MULTI PO; +NITR0.4T39 SL
[2018-07-05] MEDS ORDERED: ASPIRIN 81 MG TAB PO STA (15:42)
[2018-07-05] MEDS ORDERED: morphine 4 MG/ML VIAL IV STA ×2 (15:42→17:00)
[2018-07-05] MEDS ORDERED: ONDANSETRON 4 MG INJ IV STA (15:42)
[2018-07-05] MEDS ORDERED: NITROGLYCERIN 2% 1 GM OINT PKT TD STA (15:42)
[2018-07-05] MEDS ORDERED: LACT10SO5 PO (17:40)
[2018-07-05] MEDS ORDERED: ONDANSETRON 4 MG INJ IV PRN (19:00)
--- NOTE | 2018-07-05 19:24 | ERD ---
ER Documentation Chief Complaint Chief Complaint CHEST WALL PAIN NON-RADIATING NON-PROVOKED HPI 57-year-old female remote history of colon CA with colostomy who presents to the emergency room with chest pain. The patient has a known history of cardiac disease with multiple stents. She describes pressure-like chest discomfort and mild associated shortness of breath. She states this is consistent with her anginal equivalent. Symptoms are moderate. Present for approximately 1 to 2 days. No fevers, chills, cough or pleuritic pain. ROS All systems reviewed and are negative except as per history of present illness. Medications Home Meds Active Scripts Hydrocodone Bit-Acetaminophen (Hydrocodone Bit-APAP) 5-325MG Tablet, 1 TAB PO Q4H PRN for MODERATE PAIN LEVEL 4-6, #20 TAB Prov:BRITTANEY REESE 04/11/18 Reported Medications Lactulose* (Lactulose*) 10 Gm/15 Ml Solution, 15 ML PO NEEDED, ML 07/05/18 Nitroglycerin* (Nitrostat*) 0.4 Mg Tab.subl, 0.4 MG SL Q5MIN PRN for CHEST PAIN, BOTTLE 05/28/18 Multivitamins* (Theragran*) 1 Tab Tab, 1 TAB PO DAILY, TAB 05/28/18 Lorazepam* (Lorazepam*) 0.5 Mg Tablet, 0.5 MG PO HS PRN for ANXIETY, TAB 05/28/18 Aspirin Ec (Aspir 81) 81 Mg Tablet.dr, 81 MG PO DAILY, #30 TAB 05/28/18 Albuterol Sulfate* (Ventolin HFA*) 18 Gm Hfa.aer.ad, 2 PUFF INHALATION Q4H, #1 INHALER 05/28/18 Buprenorphine (Butrans) 1 Each Patch.tdwk, 1 EACH TD Q7DAYS 04/09/18 Docusate Sodium* (Colace*) 100 Mg Capsule, 100 MG PO QAM, #30 CAP 04/09/18 Omeprazole* (Omeprazole*) 40 Mg Capsule.dr, 40 MG PO AC BREAKFAST, #30 CAP 04/09/18 Discontinued Reported Medications Lactose-Reduced Food (Boost) 237 Ml Liquid 05/28/18 Discontinued Scripts Hydrocodone/Acetaminophen ([place] 5-325 Tablet) 1 Each Tablet, 1 EACH PO BID, #14 TAB Prov:CAMILO RAMSAY 06/04/18 Allergies Allergies: Coded Allergies: No Known Drug Allergies (Verified Allergy, Severe, 07/05/18) acetaminophen (Verified Adverse Reaction, Severe, CANNOT TAKE BEACUSE OF CIRRHOSIS, 07/05/18) ibuprofen (Verified Adverse Reaction, Severe, CANNOT TAKE BEACUSE CAUSES GI BLEED, 07/05/18) PMhx/Soc History of Surgery: Yes (Colon resection, colostomy, cholecystectomy, c- section, hernia) Anesthesia Reaction: Yes (N/V) Hx Neurological Disorder: No Hx Respiratory Disorders: No Hx Cardiac Disorders: No (2011) Hx Psychiatric Problems: No Hx Miscellaneous Medical Probl: Yes (thyroid sx (cancer)) Hx Alcohol Use: No Hx Substance Use: No Hx Tobacco Use: No Smoking Status: Never smoker FmHx Family History: No diabetes Physical Exam Vitals Vital Signs Date Temp Pulse Resp B/P (MAP) Pulse Ox O2 O2 Flow FiO2 Time Delivery Rate 07/05/18 99.3 90 16 110/57 100 15:33 (74) Physical Exam General: Well developed, well nourished, no acute distress Head: Normocephalic, atraumatic. Eyes: Pupils equally reactive, EOM intact ENT: Moist mucous membranes Neck: Supple, no lymphadenopathy Respiratory: Scant rales, left base Cardiovascular: RRR, no murmurs, rubs, or gallops Abdominal: Soft, non-tender, non-distended, no peritoneal signs : Deferred MSK: No edema, no unilateral swelling, 5/5 strength Neurologic: Alert and oriented, moving all extremities, normal speech, no focal weakness, no cerebellar signs Skin: No rash Psych: Normal mood Result Diagram: 07/05/18 1557 07/05/18 1557 Results 24 hrs Laboratory Tests Test 07/05/18 15:57 White Blood Count 3.8 10^3/ul Red Blood Count 4.45 10^6/ul Hemoglobin 12.6 g/dl Hematocrit 38.2 % Mean Corpuscular Volume 85.8 fl Mean Corpuscular Hemoglobin 28.3 pg Mean Corpuscular Hemoglobin Concent 33.0 g/dl Red Cell Distribution Width 13.8 % Platelet Count 79 10^3/UL Mean Platelet Volume 9.8 fl Immature Granulocytes % 0.300 % Neutrophils % % Segmented Neutrophils % (Manual) 46 % Lymphocytes % % Lymphocytes % (Manual) 41 % Reactive Lymphocytes % (Manual) 3 % Monocytes % % Monocytes % (Manual) 3 % Eosinophils % % Eosinophils % (Manual) 6 % Basophils % % Basophils % (Manual) 1 % Nucleated Red Blood Cells % 0.0 /100WBC Immature Granulocytes # 0.010 10^3/ul Neutrophils # 10^3/ul Lymphocytes (Manual) 1.5 10^3/ul Lymphocytes # 10^3/ul Reactive Lymphocytes # 0.1 10^3/ul Monocytes # 10^3/ul Monocytes # (Manual) 0.1 10^3/ul Eosinophils # 10^3/ul Basophils # 10^3/ul Basophils # (Manual) 0.0 10^3/ul Nucleated Red Blood Cells # 10^3/ul Platelet Estimate DECREASED Hypochromasia 1+ Poikilocytosis 1+ Anisocytosis 2+ Microcytosis 1+ Sodium Level 143 mmol/L Potassium Level 3.3 mmol/L Chloride Level 108 mmol/L Carbon Dioxide Level 25 mmol/L Anion Gap 10 Blood Urea Nitrogen 8 mg/dl Creatinine 0.47 mg/dl Est Glomerular Filtrat Rate mL/min > 60 mL/min Glucose Level 103 mg/dl Calcium Level 9.4 mg/dl Troponin I < 0.012 ng/ml B-Type Natriuretic Peptide 60 PG/ML Current Medications Medications Dose Sig/Tyler Start Time Status Last (Trade) Ordered Route PRN Stop Time Admin Dose Reason Admin Aspirin 162 mg ONCE STAT 07/05/18 DC 07/05/18 (Aspirin) PO 15:42 16:04 07/05/18 15:43 1 inch ONCE STAT 07/05/18 DC 07/05/18 Nitroglycerin TD 15:42 16:05 07/05/18 15:43 (Nitroglyceri n 2% Oint) Morphine 4 mg ONCE STAT 07/05/18 DC 07/05/18 Sulfate IV 15:42 16:04 (morphine) 07/05/18 15:43 Ondansetron 4 mg ONCE STAT 07/05/18 DC 07/05/18 HCl (Zofran IV 15:42 16:00 Inj) 07/05/18 15:43 Morphine 4 mg ONCE STAT 07/05/18 DC 07/05/18 Sulfate IV 17:00 17:32 (morphine) 07/05/18 17:01 Ondansetron 4 mg ER BRIDGE 5/30/19 HCl (Zofran PRN IV 19:00 Inj) NAUSEA/VOMITI 07/06/18 18:59 NG Procedures/MDM EKG, MONITORS, & DIAGNOSTIC IMAGING: EKG: I reviewed and interpreted a 12-lead EKG. Rhythm: Normal sinus rhythm ST Changes: No contiguous ST segment elevations T waves: No contiguous T wave inversions Impression: No evidence of acute cardiac ischemia Repeat EKG: EKG: I reviewed and interpreted a 12-lead EKG. Rhythm: Normal sinus rhythm ST Changes: No contiguous ST segment elevations T waves: No contiguous T wave inversions Impression: No evidence of acute cardiac ischemia Chest x-ray: I reviewed and interpreted a 1 view of the chest Mediastinum: No enlargement Cardiac silhouette: No cardiomegaly Airspace: Clear lung lipscomb bilaterally without evidence of pneumothorax Bones: No evidence of fracture PROCEDURES: None LAB INTERPRETATION: * Negative troponin MEDICAL DECISION MAKING: The patient's history, physical exam and clinical presentation is concerning for possible cardiogenic etiology and acute coronary syndrome. Based on the patient's clinical exam and history and risk factors, I have a much lower clinical concern for pulmonary embolism, acute aortic dissection, pneumothorax, pneumonia, cardiac tamponade HEART Score: Greater than 4 MACE Rate: 16.6% Shared Decision Making: We had a conversation regarding risk stratification, MACE rate, and the risks, benefits, alternatives of disposition planning options. Disposition planning: Admit ER COURSE: * Aspirin, nitro, morphine provided * Negative troponin * Chest pain-free CONSULTATION: None DISPOSITION PLAN: Telemetry admission for management of chest pain to rule out acute coronary syndrome, serial enzymes, risk stratification and consideration of provocative testing CONSULTATION: Accepting care team and consultations: I discussed the current laboratory data, diagnostic imaging and emergency care provided. Admitting team: Dr. Thurman Admitting team indication: Insurance directed Departure Diagnosis: Primary Impression: Chest pain Chest pain type: unspecified Qualified Codes: R07.9 - Chest pain, unspecified Additional Impression: Thrombocytopenia Condition: Stable HINA PARNELL MD July 05, 2018 19:24
[2018-07-05] MEDS ORDERED: HYDROmorphONE 2 MG/ML SYG IV STA (21:27)
[2018-07-06] VITALS (12 sets, daily range): BP systolic 93–128; BP diastolic 52–65; PULSE 60–79; RESP 16–19; Ht 170.2 cm; Wt 77.1 kg
[2018-07-06] MEDS ORDERED: BISA-57 PO (01:49)
[2018-07-06] MEDS ORDERED: POTASSIUM CHLORIDE (SR) 20 MEQ TAB PO ONE (02:22)
[2018-07-06] MEDS ORDERED: NITROGLYCERIN (SL) 0.4 MG TAB SL PRN (02:30)
[2018-07-06] MEDS ORDERED: LACTULOSE 30ML CUP PO PRN (02:30)
[2018-07-06] MEDS ORDERED: HYDROCODONE/APAP (5/325) TAB PO PRN (02:30)
[2018-07-06] MEDS ORDERED: BISACODYL (EC) 5 MG TAB PO PRN (02:30)
[2018-07-06] MEDS: ALBUTEROL HFA 8 GM INHALER INH SCH ×5 (02:31→21:00)
[2018-07-06] MEDS ORDERED: LORAZEPAM 0.5 MG TAB PO SCH (02:45)
[2018-07-06] MEDS: morphine 2 MG INJ IV PRN ×4 (03:14→21:21)
[2018-07-06] MEDS ORDERED: ONDANSETRON 4 MG INJ IV PRN (03:30)
[2018-07-06] MEDS: PANTOPRAZOLE (EC) 40 MG TAB PO SCH (06:17)
--- NOTE | 2018-07-06 07:05 | RADRPT ---
Vent Rate: 64 bpm RR Interval: 936 msec IA Interval: 139 msec QRS Duration: 93 msec QT Interval: 439 msec QTC Interval: 454 msec P-R-T [place]: -11 - 80 - 17 degrees Sinus rhythm...normal P axis, V-rate 50- 99 Nonspecific T abnormalities, anterior leads...T <-0.10mV, V2-V4 Electronically Signed By: Ridge Mendoza
[2018-07-06] MEDS: DOCUSATE SODIUM 100 MG CAP PO SCH (08:41)
[2018-07-06] MEDS: MULTIVITAMINS THERAPEUTIC TAB PO SCH (08:41)
[2018-07-06] MEDS: ASPIRIN (EC) 325 MG TAB PO SCH (08:41)
--- NOTE | 2018-07-06 08:41 | HP ---
Date/Time of Note Date/Time of Note DATE: 07/06/18 TIME: 08:28 Assessment/Plan VTE Prophylaxis SCD contraindicated: other Pharmacological prophylaxis: other Pharm contraindication: other Lines/Catheters IV Catheter Type (from Nrsg): Saline Lock Assessment/Plan Assessment/Plan - Chest wall Pain r/o Acute Coronary Syndrome - admit to Tele unit - cardiology consult- Dr Rodrigues notified - 2-D echo - CHD panel - CBC - CMP - TSH - MSO4- pain control; Zofran for nausea - see admission orders - Status post prior PTCA and stent placement per patient in 2012 - Headaches -will net neurology consult- Dr Manriquez notified - Hypokalemia - resolved - Hypertension - stable -UTI - started on Keflex; pending culture - Asthma- stable - No current tobacco, quit x17 years - reinforce smoking cessation - patient agreed -Thrombocytopenia- - monitor CBC - Monitor s/s of bleeding -History of colon cancer -Left lower quadrant colostomy -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 Patient seen in collaboration with Dr Gross. staff. Result Diagram: 07/05/18 1557 07/05/18 1557 Results 24hrs Laboratory Tests Test 07/05/18 15:57 07/05/18 21:52 07/06/18 04:22 White Blood Count 3.8 #L Red Blood Count 4.45 Hemoglobin 12.6 Hematocrit 38.2 Mean Corpuscular Volume 85.8 Mean Corpuscular Hemoglobin 28.3 L Mean Corpuscular Hemoglobin Concent 33.0 Red Cell Distribution Width 13.8 Platelet Count 79 #L Mean Platelet Volume 9.8 Immature Granulocytes % 0.300 Neutrophils % Segmented Neutrophils % (Manual) 46 Lymphocytes % Lymphocytes % (Manual) 41 Reactive Lymphocytes % (Manual) 3 H Monocytes % Monocytes % (Manual) 3 Eosinophils % Eosinophils % (Manual) 6 Basophils % Basophils % (Manual) 1 Nucleated Red Blood Cells % 0.0 Immature Granulocytes # 0.010 Neutrophils # Lymphocytes (Manual) 1.5 Lymphocytes # Reactive Lymphocytes # 0.1 H Monocytes # Monocytes # (Manual) 0.1 L Eosinophils # Basophils # Basophils # (Manual) 0.0 Nucleated Red Blood Cells # Platelet Estimate DECREASED Hypochromasia 1+ Poikilocytosis 1+ Anisocytosis 2+ Microcytosis 1+ Sodium Level 143 Potassium Level 3.3 L Chloride Level 108 Carbon Dioxide Level 25 Anion Gap 10 Blood Urea Nitrogen 8 Creatinine 0.47 Est Glomerular Filtrat Rate mL/min > 60 Glucose Level 103 Calcium Level 9.4 Troponin I < 0.012 < 0.012 < 0.012 B-Type Natriuretic Peptide 60 Creatine Kinase 44 39 Creatine Kinase Index 0.8 1.1 Creatinine Kinase MB (Mass) 0.37 0.41 Triglycerides Level 98 Cholesterol Level 136 LDL Cholesterol, Calculated 62 HDL Cholesterol 54 Cholesterol/HDL Ratio 2.5 HPI/ROS Admit Date/Time Admit Date/Time July 05, 2018 at 18:33 ROS HPI This is a 57-year-old female with past history of coronary artery disease, status post prior PTCA and stent placement per patient in 2011, hypertension, dyslipidemia, asthma, prior tobacco intake quitting in 2016, Patient has hx of thyroid cancer, thyroid surgery. Patient has hx of colon CA; Colon resection with colostomy, cholecystectomy, , hernia. Patient is admitted with c/o acute chest pain. She described pressure-like chest discomfort associated shortness of breath for 1-2 days . Patient is status post recent admit at [facility] w/chest pain. 05/29/2018 her 2D echo revealed an EF of 45% to 50% with trace tricuspid and mitral regurgitation and left ventricular diastolic dysfunction. 05/31/2018 her cardiac stress test revealed no ischemia with an EF of 52%. On admission - VS- temperature of 98.4, blood pressure 110/57, pulse rate 79, respiratory rate 19, O2 setting 100% RA - CBC- white blood cell count of 3.8, hemoglobin 12.6, platelet count of 79 - Chemistry - sodium of 143, potassium 3.3, creatinine 0.47, BUN 8, troponin negative - BNP 60 - UA positive. - EKG electrocardiogram reveals normal sinus rhythm, rate of 64, normal axis, normal intervals with anterior T-wave inversions and inferior T-wave inversions. - 2D echo pending During assessment, patient is resting in bed; c/o nausea/vomitting ; denies chest pain, shortness of breath fevers, chills, cough or pleuritic pain. Denies any focal weakness/ numbness. bilateral calf pain, constipation. diarrhea. Patient is admitted under Dr Thurman for further treatment and evaluation . Plan of care dw staff. ROS All systems reviewed and are negative except as per history of present illness. Allergies Allergies: Coded Allergies: No Known Drug Allergies (Verified Allergy, Severe, 07/05/18) acetaminophen (Verified Adverse Reaction, Severe, CANNOT TAKE BEACUSE OF CIRRHOSIS, 07/05/18) ibuprofen (Verified Adverse Reaction, Severe, CANNOT TAKE BEACUSE CAUSES GI BLEED, 07/05/18) Medications Home Meds Active Scripts Hydrocodone Bit-Acetaminophen (Hydrocodone Bit-APAP) 5-325MG Tablet, 1 TAB PO Q4H PRN for MODERATE PAIN LEVEL 4-6, #20 TAB Prov:BRITTANEY REESE 04/11/18 Reported Medications Lactulose* (Lactulose*) 10 Gm/15 Ml Solution, 15 ML PO NEEDED, ML 07/05/18 Nitroglycerin* (Nitrostat*) 0.4 Mg Tab.subl, 0.4 MG SL Q5MIN PRN for CHEST PAIN, BOTTLE 05/28/18 Multivitamins* (Theragran*) 1 Tab Tab, 1 TAB PO DAILY, TAB 05/28/18 Lorazepam* (Lorazepam*) 0.5 Mg Tablet, 0.5 MG PO HS PRN for ANXIETY, TAB 05/28/18 Aspirin Ec (Aspir 81) 81 Mg Tablet.dr, 81 MG PO DAILY, #30 TAB 05/28/18 Albuterol Sulfate* (Ventolin HFA*) 18 Gm Hfa.aer.ad, 2 PUFF INHALATION Q4H, #1 INHALER 05/28/18 Buprenorphine (Butrans) 1 Each Patch.tdwk, 1 EACH TD Q7DAYS 04/09/18 Docusate Sodium* (Colace*) 100 Mg Capsule, 100 MG PO QAM, #30 CAP 04/09/18 Omeprazole* (Omeprazole*) 40 Mg Capsule.dr, 40 MG PO AC BREAKFAST, #30 CAP 04/09/18 Discontinued Reported Medications Lactose-Reduced Food (Boost) 237 Ml Liquid 05/28/18 Discontinued Scripts Hydrocodone/Acetaminophen ([place] 5-325 Tablet) 1 Each Tablet, 1 EACH PO BID, #14 TAB Prov:CAMILO RAMSAY 06/04/18 Eyes: no complaints ENT: no complaints Respiratory: no complaints Cardiovascular: no complaints Gastrointestinal: nausea, vomiting Genitourinary: no complaints Musculoskeletal: no complaints Skin: no complaints Neurologic: no complaints Endocrine: no complaints Lymphatic: no complaints Psychological: nl mood/affect Immunologic: no complaints PMH/Family/Social Past Medical History PMhx/Soc History of Surgery: Yes (Stent placement . Colon resection, colostomy, cholecystectomy, , hernia) Anesthesia Reaction: Yes (N/V) Hx Neurological Disorder: No Hx Respiratory Disorders: Asthma Hx Cardiac Disorders: No (2011) Hx GI Disorders: Hernia Hx Psychiatric Problems: No Hx Miscellaneous Medical Probl: Yes (thyroid sx (cancer)) Hx Alcohol Use: No Hx Substance Use: No Hx Tobacco Use: No Smoking Status: Never smoker FmHx Family History: Hx of Hypertension; cardiac disorder No diabetes Medical History: high cholesterol, hypertension, other Medications Current Medications Ondansetron HCl (Zofran Inj) 4 mg ER BRIDGE PRN IV NAUSEA/VOMITING Last administered on 07/06/18at 03:13; Admin Dose 4 MG; Start 07/05/18 at 19:00; Stop 07/06/18 at 18:59 Bisacodyl (Dulcolax) 10 mg DAILY PRN PO CONSTIPATION; Start 07/06/18 at 02:30 Docusate Sodium (Colace) 100 mg DAILY PO ; Start 07/06/18 at 09:00 Aspirin (Ecotrin) 325 mg DAILY PO ; Start 07/06/18 at 09:00 Nitroglycerin (Nitroglycerin (Sl Tab) 0.4 Mg) 1 tab Q5M PRN SL ANGINA; Start 07/06/18 at 02:30 Morphine Sulfate (morphine) 2 mg Q4H PRN IV SEVERE PAIN LEVEL 7-10 Last administered on 07/06/18at 03:14; Admin Dose 2 MG; Start 07/06/18 at 02:30 Acetaminophen/ Hydrocodone Bitart ([place] (5/325)) 1 tab Q4H PRN PO MODERATE PAIN LEVEL 4-6; Start 07/06/18 at 02:30 Lactulose (Enulose) 10 gm DAILY PRN PO CONSTIPATION; Start 07/06/18 at 02:30 Multivitamins Therapeutic (Theragran) 1 tab DAILY PO ; Start 07/06/18 at 09:00 Pantoprazole (Protonix Tab) 40 mg DAILY@06 PO Last administered on 07/06/18at 06:17; Admin Dose 40 MG; Start 07/06/18 at 06:00 Albuterol (Ventolin Hfa) 2 puff Q4HWA RESP THERAPY INH ; Start 07/06/18 at 02:31 Lorazepam (Ativan) 0.5 mg HS PRN PO ANXIETY; Start 07/06/18 at 03:30 Ondansetron HCl (Zofran Inj) 4 mg Q4H PRN IV NAUSEA AND/OR VOMITING; Start 07/06/18 at 03:30 Coded Allergies: acetaminophen (Verified Adverse Reaction, Severe, CANNOT TAKE BEACUSE OF CIRRHOSIS, 07/05/18) ibuprofen (Verified Adverse Reaction, Severe, CANNOT TAKE BEACUSE CAUSES GI BLEED, 07/05/18) Past Surgical History status post prior PTCA and stent placement per patient in 2011 Past Surgical Hx: bowel resection, cholecystectomy, other ( thyroid sx; bowel resection ; colostomy) Family History Significant Family History: heart disease, hypertension, other (No current tobacco, quit x17 years. No EtOH or illicit drug use.) Social History Alcohol Use: none Smoking Status: Former smoker (No current tobacco, quit x17 years. ) Drug Use: none Exam/Review of Systems Vital Signs Vitals Vital Signs Date Temp Pulse Resp B/P (MAP) Pulse Ox O2 O2 Flow FiO2 Time Delivery Rate 07/06/18 98.4 79 19 116/59 96 07:17 (78) 07/06/18 Room Air 01:13 Intake and Output 07/05/18 07/05/18 07/06/18 1515:00 23:00 07:00 IntakeIntake Total 800 ml BalanceBalance 800 ml Exam Constitutional: alert, well developed Psych: nl mood/affect Head: normocephalic Eyes: nl lids, nl sclera ENMT: nl external ears & nose Neck: non-tender Respiratory: clear to auscultation Cardiovascular: nl pulses, other (s1s2) Gastrointestinal: soft, non-tender Musculoskeletal: nl extremities to inspection Extremities: normal pulses Neurological: nl speech, other (monitor) Skin: nl turgor Lymph: nontender CAMILO RAMSAY July 06, 2018 08:41
[2018-07-06] MEDS: CEPHALEXIN 500 MG CAP PO SCH ×2 (11:48→17:27)
[2018-07-06] MEDS ORDERED: KETOROLAC 30 MG INJ IV STA (12:32)
[2018-07-06] MEDS ORDERED: NAPROXEN 250 MG TAB PO SCH (13:00)
--- NOTE | 2018-07-06 13:23 | CONSI ---
Assessment/Plan Assessment/Plan Assessment/Plan (Recall) 57 yo F with hx of metastatic colon CA and other comorbidities who presents for evaluation of chest pain, dizziness, and other sx. She was additionally noted to have severe headaches... for which neurology is consulted. The clinical picture is most consistent with a nonspecific headache in the co ntext of systemic illness. A focal HOUSE REPAIRER process is not entirely excluded. Carcinomatous meningitis is less likely, given her CSF studies in 05/2018 were reassuringly without evidence of meningeal inflammation NSAIDs are currently contraindicated d/t concern for GI bleed. CTH from 05/2018 was unrevealing. P: MRI brain with and without contrast for further characterization when able Pain and other medical management per primary Will follow clinically Consultation Date/Type/Reason Admit Date/Time July 05, 2018 at 18:33 Type of Consult Neurology Reason for Consultation headache Requesting Provider: DAVI KAHN MD Date/Time of Note DATE: 07/06/18 TIME: 13:23 Hx of Present Illness 57 yo F with hx of colon CA, thyroid CA and other comorbidities who presented to the ED with c/o chest pain and headache. History was obtained from pt and chart review. She continues to have c/o stomach pain and severe headache, generally. It is additionally elsewhere noted: HPI 57-year-old female remote history of colon CA with colostomy who presents to the emergency room with chest pain. The patient has a known history of cardiac di sease with multiple stents. She describes pressure-like chest discomfort and mild associated shortness of breath. She states this is consistent with her anginal equivalent. Symptoms are moderate. Present for approximately 1 to 2 days. No fevers, chills, cough or pleuritic pain. negative unless noted otherwise in HPI Objective Exam Vitals Vital Signs Date Temp Pulse Resp B/P (MAP) Pulse Ox O2 O2 Flow FiO2 Time Delivery Rate 07/06/18 65 12:25 07/06/18 98.1 19 128/64 96 11:18 (85) 07/06/18 Room Air 01:13 Intake and Output 07/05/18 07/05/18 07/06/18 1515:00 23:00 07:00 IntakeIntake Total 800 ml BalanceBalance 800 ml Exam PE: Gen Appearance: No Apparent Distress HEENT: Normocephalic Cardiovascular: Regular rate Abdomen: Soft Extremities: Dry NE: The patient was alert and oriented. Language was normal. Fund of knowledge was normal. Pupils were equal and reactive to light. There was no afferent pupillary defect. Visual lipscomb were normal. Funduscopic examination was limited. Extra-ocular movements were full. Ptosis was absent. There was no nystagmus. Facial sensation was normal. Face was symmetric with normal strength. Hearing was intact. Palate movements were normal. Neck strength was normal. There was normal tongue bulk and speed of movement. Tone was normal. Muscle bulk was normal. I did not see fasciculations. Arms and legs were strong. Vibration sensation was normal. Temperature and pinprick sensation was normal. Rapid alternating movements were normal. There was no dysmetria. There was no intention tremor. Gait was deferred due to bedrest. Arm and leg reflexes were 2+ and symmetric. Carroll's sign was absent. Plantar responses were flexor. Results Result Diagram: 07/06/18 1049 07/06/18 1216 Results 24hrs Laboratory Tests Test 07/05/18 15:57 07/05/18 21:52 07/06/18 04:22 07/06/18 10:30 White Blood Count 3.8 #L Red Blood Count 4.45 Hemoglobin 12.6 Hematocrit 38.2 Mean Corpuscular 85.8 Volume Mean Corpuscular 28.3 L Hemoglobin Mean Corpuscular 33.0 Hemoglobin Concent Red Cell 13.8 Distribution Width Platelet Count 79 #L Mean Platelet Volume 9.8 Immature 0.300 Granulocytes % Neutrophils % Segmented 46 Neutrophils % (Manual) Lymphocytes % Lymphocytes % 41 (Manual) Reactive Lymphocytes 3 H % (Manual) Monocytes % Monocytes % (Manual) 3 Eosinophils % Eosinophils % 6 (Manual) Basophils % Basophils % (Manual) 1 Nucleated Red Blood 0.0 Cells % Immature 0.010 Granulocytes # Neutrophils # Lymphocytes (Manual) 1.5 Lymphocytes # Reactive Lymphocytes 0.1 H # Monocytes # Monocytes # (Manual) 0.1 L Eosinophils # Basophils # Basophils # (Manual) 0.0 Nucleated Red Blood Cells # Platelet Estimate DECREASED Hypochromasia 1+ Poikilocytosis 1+ Anisocytosis 2+ Microcytosis 1+ Sodium Level 143 Potassium Level 3.3 L Chloride Level 108 Carbon Dioxide Level 25 Anion Gap 10 Blood Urea Nitrogen 8 Creatinine 0.47 Est Glomerular > 60 Filtrat Rate mL/min Glucose Level 103 Calcium Level 9.4 Troponin I < 0.012 < 0.012 < 0.012 B-Type Natriuretic 60 Peptide Creatine Kinase 44 39 Creatine Kinase 0.8 1.1 Index Creatinine Kinase MB 0.37 0.41 (Mass) Triglycerides Level 98 Cholesterol Level 136 LDL Cholesterol, 62 Calculated HDL Cholesterol 54 Cholesterol/HDL 2.5 Ratio Urine Color YELLOW Urine Clarity CLOUDY A Urine pH 7.0 Urine Specific 1.018 [place] Urine Ketones NEGATIVE Urine Nitrite NEGATIVE Urine Bilirubin NEGATIVE Urine Urobilinogen NEGATIVE Urine Leukocyte 3+ H Esterase Urine Microscopic 14 H RBC Urine Microscopic > 182 H WBC Urine Bacteria MODERATE Urine Hemoglobin 1+ H Urine Glucose NEGATIVE Urine Total Protein 2+ H Test 07/06/18 10:49 07/06/18 12:16 White Blood Count 3.8 L Red Blood Count 4.35 Hemoglobin 12.2 Hematocrit 38.3 Mean Corpuscular 88.0 Volume Mean Corpuscular 28.0 L Hemoglobin Mean Corpuscular 31.9 L Hemoglobin Concent Red Cell 14.0 Distribution Width Platelet Count 69 L Mean Platelet Volume 10.5 H Immature 0.300 Granulocytes % Neutrophils % 62.3 Lymphocytes % 21.6 Monocytes % 7.9 Eosinophils % 7.4 H Basophils % 0.5 Nucleated Red Blood 0.0 Cells % Immature 0.010 Granulocytes # Neutrophils # 2.4 Lymphocytes # 0.8 Monocytes # 0.3 Eosinophils # 0.3 Basophils # 0.0 Nucleated Red Blood 0.0 Cells # Sodium Level 141 141 Potassium Level 4.5 4.3 Chloride Level 107 106 Carbon Dioxide Level 29 28 Anion Gap 5 7 Blood Urea Nitrogen 14 13 Creatinine 0.58 0.60 Est Glomerular > 60 > 60 Filtrat Rate mL/min Glucose Level 93 102 Calcium Level 9.0 8.9 Total Bilirubin 0.5 Direct Bilirubin 0.00 Indirect Bilirubin 0.5 Aspartate Amino 24 Transf (AST/SGOT) Alanine 35 Aminotransferase (AL T/SGPT) Alkaline Phosphatase 72 Total Protein 7.3 Albumin 4.0 Globulin 3.30 H Albumin/Globulin 1.21 Ratio Amylase Level 86 Lipase 167 Past Medical History reviewed Home Meds Active Scripts Hydrocodone Bit-Acetaminophen (Hydrocodone Bit-APAP) 5-325MG Tablet, 1 TAB PO Q4H PRN for MODERATE PAIN LEVEL 4-6, #20 TAB Prov:BRITTANEY REESE 04/11/18 Reported Medications Bisacodyl* (Dulcolax*) 5 Mg Tablet.dr, 10 MG PO DAILY PRN for CONSTIPATION, TAB 07/06/18 Lactulose* (Lactulose*) 10 Gm/15 Ml Solution, 15 ML PO NEEDED, ML 07/05/18 Nitroglycerin* (Nitrostat*) 0.4 Mg Tab.subl, 0.4 MG SL Q5MIN PRN for CHEST PAIN, BOTTLE 05/28/18 Multivitamins* (Theragran*) 1 Tab Tab, 1 TAB PO DAILY, TAB 05/28/18 Lorazepam* (Lorazepam*) 0.5 Mg Tablet, 0.5 MG PO HS PRN for ANXIETY, TAB 05/28/18 Aspirin Ec (Aspir 81) 81 Mg Tablet.dr, 81 MG PO DAILY, #30 TAB 05/28/18 Albuterol Sulfate* (Ventolin HFA*) 18 Gm Hfa.aer.ad, 2 PUFF INHALATION Q4H, #1 INHALER 05/28/18 Buprenorphine (Butrans) 1 Each Patch.tdwk, 1 EACH TD Q7DAYS 04/09/18 Docusate Sodium* (Colace*) 100 Mg Capsule, 100 MG PO QAM, #30 CAP 04/09/18 Omeprazole* (Omeprazole*) 40 Mg Capsule.dr, 40 MG PO AC BREAKFAST, #30 CAP 04/09/18 Discontinued Reported Medications Lactose-Reduced Food (Boost) 237 Ml Liquid 05/28/18 Discontinued Scripts Hydrocodone/Acetaminophen ([place] 5-325 Tablet) 1 Each Tablet, 1 EACH PO BID, #14 TAB Prov:CAMILO RAMSAY 06/04/18 Medications Current Medications Ondansetron HCl (Zofran Inj) 4 mg ER BRIDGE PRN IV NAUSEA/VOMITING Last administered on 07/06/18at 03:13; Admin Dose 4 MG; Start 07/05/18 at 19:00; Stop 07/06/18 at 18:59 Bisacodyl (Dulcolax) 10 mg DAILY PRN PO CONSTIPATION; Start 07/06/18 at 02:30 Docusate Sodium (Colace) 100 mg DAILY PO Last administered on 07/06/18at 08:41; Admin Dose 100 MG; Start 07/06/18 at 09:00 Aspirin (Ecotrin) 325 mg DAILY PO Last administered on 07/06/18at 08:41; Admin Dose 325 MG; Start 07/06/18 at 09:00 Nitroglycerin (Nitroglycerin (Sl Tab) 0.4 Mg) 1 tab Q5M PRN SL ANGINA; Start 07/06/18 at 02:30 Morphine Sulfate (morphine) 2 mg Q4H PRN IV SEVERE PAIN LEVEL 7-10 Last administered on 07/06/18at 08:48; Admin Dose 2 MG; Start 07/06/18 at 02:30 Acetaminophen/ Hydrocodone Bitart ([place] (5/325)) 1 tab Q4H PRN PO MODERATE PA IN LEVEL 4-6; Start 07/06/18 at 02:30 Lactulose (Enulose) 10 gm DAILY PRN PO CONSTIPATION; Start 07/06/18 at 02:30 Multivitamins Therapeutic (Theragran) 1 tab DAILY PO Last administered on 07/06/18at 08:41; Admin Dose 1 TAB; Start 07/06/18 at 09:00 Pantoprazole (Protonix Tab) 40 mg DAILY@06 PO Last administered on 07/06/18at 06:17; Admin Dose 40 MG; Start 07/06/18 at 06:00 Albuterol (Ventolin Hfa) 2 puff Q4HWA RESP THERAPY INH ; Start 07/06/18 at 02:31 Lorazepam (Ativan) 0.5 mg HS PRN PO ANXIETY; Start 07/06/18 at 03:30 Ondansetron HCl (Zofran Inj) 4 mg Q4H PRN IV NAUSEA AND/OR VOMITING; Start 07/06/18 at 03:30 Cephalexin (Keflex) 500 mg Q6 PO Last administered on 07/06/18at 11:48; Admin Dose 500 MG; Start 07/06/18 at 12:00 Allergies: Coded Allergies: acetaminophen (Verified Adverse Reaction, Severe, CANNOT TAKE BEACUSE OF CIRRHOSIS, 07/05/18) ibuprofen (Verified Adverse Reaction, Severe, CANNOT TAKE BEACUSE CAUSES GI BLEED, 07/05/18) Past Surgical History reviewed Social History reviewed Smoking Status: Former smoker TRU WEIR NP July 06, 2018 13:23
--- NOTE | 2018-07-06 20:15 | CONS ---
DATE OF ADMISSION: 07/05/2018 DATE OF CONSULTATION: TYPE OF CONSULTATION: Gastroenterology. Dear Dr. Kahn: Thank you for asking me to see Mrs. Spring in GI consultation. HISTORY OF PRESENT ILLNESS: The patient, as you know, is a 57-year-old white female who is admitted to the hospital with history of chest pain, epigastric pain and vomiting which apparently has been go ing on for about 24 hours prior to the admission. She had several episodes of epigastric pain and beltran bsternal pain associated with vomiting. No history of vomiting blood. No history of passing blood f rom the rectum. The patient has a history of multiple coronary stents placed in the past. She also has history of colostomy done for colon carcinoma. There seems to be evidence of carcinomatosis in t he chart, but I am not sure how much workup has been on this and I do not know who the oncologist on the case at this time. The patient has no diarrhea, but she does have a colostomy as mentioned earli er on. PAST MEDICAL HISTORY: Colon cancer resection with colostomy. REVIEW OF SYSTEM: Coronary artery disease. MEDICATIONS PRIOR TO ADMISSION: Include: 1. Ventolin. 2. Nitrostat. 3. Aspirin. 4. Butrans. 5. Hydrocodone. 6. Lorazepam. 7. Lactulose. 8. Dulcolax. 9. Colace. 10. Omeprazole. PHYSICAL EXAMINATION: GENERAL: The patient is a 57-year-old white female who at this time she is thin built. She is alert . VITAL SIGNS: Temperature 98.1, blood pressure 113/62. CARDIOVASCULAR: Normal heart sounds. RESPIRATORY: Normal breath sounds. ABDOMEN: Showed a soft abdomen. There is evidence of a colostomy in place. LABORATORY WORKUP: Hemoglobin 12.2, WBC count is 3800. Potassium is 4.3. Alkaline phosphatase 72, AST is 24, AST is 35. Amylase is 86, lipase is 167. CLINICAL IMPRESSION: The patient is presenting with history of abdominal pain, chest pain and vomiti ng and rule out peptic ulcer disease, gastritis, et cetera. PLAN: At the time of this dictation, apparently portrait photographer has already cleared for endoscopy; ned winter, at this time, I would recommend that we will proceed with upper endoscopy for further evaluation. Once again, doctor, thank you for this consultation. Dictated By: PAULA STARKS MD NC/NTS Conf#: [id number] [facility]#: [id number] CC: DAVI KAHN MD;*EndCC*
[2018-07-07] VITALS (20 sets, daily range): BP systolic 89–146; BP diastolic 51–77; PULSE 58–90; RESP 17–25
[2018-07-07] MEDS: CEPHALEXIN 500 MG CAP PO SCH ×5 (00:31→23:07)
[2018-07-07] MEDS: LORAZEPAM 0.5 MG TAB PO PRN ×2 (00:32→19:41)
[2018-07-07] MEDS: morphine 2 MG INJ IV PRN ×5 (02:27→19:43)
[2018-07-07] MEDS: PANTOPRAZOLE (EC) 40 MG TAB PO SCH (06:02)
--- NOTE | 2018-07-07 08:20 | CONS ---
DATE OF ADMISSION: 07/05/2018 DATE OF CONSULTATION: 07/06/2018 TYPE OF CONSULTATION: Cardiology. REASON FOR CONSULTATION: Chest pain, assess for acute coronary syndrome. REQUESTING PHYSICIAN: Davi Kahn MD HISTORY OF PRESENT ILLNESS: Ms. Spring is a very pleasant 57-year-old female with history of coronary artery disease, status post prior PTCA and stent placement per patient in 2011, hypertension, dyslipidemia, asthma, prior tobacco intake quitting in 2016, status post recent admit, during which time she had chest pain and underwent a 2D echo in 05/29/2018 that revealed an EF of 45% to 50% with trace tricuspid and mitral regurgitation and left ventricular diastolic dysfunction. The patient then subsequently additionally underwent a cardiac stress test on 05/31/2018 which revealed no ischemia with an EF of 52%. The patient states that she has been home and states she feels somewhat anxious and had the onset of substernal chest pain described as a tightening. The patient subsequently presented to [facility] where upon arrival, temperature of 99.3, blood pressure 110/57, pulse rate 90, respiratory rate 16, satting 100%. The patient's labs revealed a white blood cell count of 3.8, hemoglobin 12.6, platelet count of 79, sodium of 143, potassium 3.3, creatinine 0.47, BUN 8, troponin negative, BNP of 60, UA positive. The patient's electrocardiogram reveals normal sinus rhythm, rate of 64, normal axis, normal intervals with anterior T-wave inversions and inferior T-wave inversions. The patient had no changes on serial EKGs at that time. The patient was admitted to the floor and since admit to floor, denies ongoing chest pain, has had total negative troponins. The patient's EKG does reveal upright T-waves in one of leads V2, but still inverted in V3, likely more consistent with the patient's actual lead placements versus actual changes and an inferior biphasic T-wave abnormalities. PAST MEDICAL HISTORY: As above in HPI. MEDICATIONS CURRENTLY IN HOSPITAL: 1. Keflex. 2. Aspirin 325 mg daily. 3. Theragran. 4. Ativan. 5. Zofran. 6. Albuterol. 7. Dulcolax. 8. Morphine. 9. Suring. 10. Lactulose. 11. Zofran. ALLERGIES: NO KNOWN DRUG ALLERGIES. SOCIAL HISTORY: No current tobacco, quit x17 years. No EtOH or illicit drug use. FAMILY HISTORY: No history of sudden cardiac or early CAD. REVIEW OF SYSTEMS: As above in HPI. CONSTITUTIONAL: No fevers, chills. PULMONARY: No current shortness of breath. CARDIOVASCULAR: No current chest pain, but chest pain on admit. GASTROINTESTINAL: No vomiting. GENITOURINARY: No hematuria. MUSCULOSKELETAL: Degenerative joint disease. PSYCHIATRIC: Possible anxiety. PHYSICAL EXAMINATION: VITAL SIGNS: Temperature 98.1, blood pressure 128/64, pulse 67, respiratory rate 19, saturating 96%. GENERAL: The patient is alert, awake, in no acute distress. NECK: JVP approximately is 8 to 9 cm of water. CHEST: Fair air movement throughout. HEART: Regular rate and rhythm. Normal S1, S2. I/ systolic murmur, nondisplaced PMI. ABDOMEN: Positive bowel sounds, soft. EXTREMITIES: No significant pitting edema, 1+ pulses bilateral posterior tibial. LABORATORIES: Most recently from today, sodium 141, potassium 4.3, creatinine 0.6, BUN 13. Hemoglobin 13.8, platelet count of 69, white blood cell count 3.8. UA positive. IMAGING STUDIES: As above in HPI. No further imaging studies for my review at this time. ELECTROCARDIOGRAM: As above in HPI. No further electrocardiograms for my review at this time. IMPRESSION: 1. Chest pain, assess for acute coronary syndrome with negative troponins x3 and recently negative cardiac stress test on 05/2018, EF of 50%. 2. History of cardiomyopathy with mildly depressed left ventricular ejection by echo 45% to 50% and by stress at the same time. 3. History of PTCA and stent placement per patient in 2011. The patient also discussed me that she is unsure she has ever had a stent, although she states she has had one and states she is under a lot of anxiety and stress during that time. 4. History of colon carcinoma, status post colectomy with colostomy. 5. Dyspnea on exertion and shortness of breath. 6. History of asthma per patient. 7. Chronic constipation. 8. Thrombocytopenia. 9. History of hepatitis C and cirrhosis. RECOMMENDATIONS: 1. At this time, we would maintain the patient on telemetry monitoring to follow rhythm and rates closely. 2. The patient is status post troponins negative x3. 3. We will continue to follow the patient's EKGs serially to assess for significant ongoing changes. 4. Continue the patient's baseline aspirin as tolerated and the patient does list ibuprofen as possible allergy due to bleeding and therefore maybe she will on aspirin, but will continue to tolerate it, may decrease the baby aspirin. 5. We will give the patient sublingual nitroglycerin for any recurrent episodes of chest pain. 6. We will continue to follow the patient's blood pressure closely off of antihypertensives. 7. At this time as the patient has had a negative troponin x3, has no ongoing chest pain and recent stress test negative in 05/2018, I believe this patient is okay to proceed to endoscopy without further noninvasive evaluation on current medications and overall moderate cardiovascular risk. Thank you for allowing me to take part in the care of this patient. I will continue to follow her very closely with you with further recommendations to be made as the patient progresses through her inpatient hospital clinical course. Dictated By: RAVINDER TELLO/JUANITO Conf#: [id number] DID#: [id number] CC: DAVI KAHN MD; PAULA STARKS MD;*EndCC* MTDD
--- NOTE | 2018-07-07 09:39 | PREAC ---
Date/Time of Note Date/Time of Note DATE: 07/07/18 TIME: 09:34 Anesthesia Eval and Record Evaluation Time Pre-Procedure Interview DATE: 07/07/18 TIME: 09:34 Age 57 Sex female NPO: 8 hrs Preoperative diagnosis abdominal pain Planned procedure EGD Past Medical History Past Medical History: Includes Cardio: HTN, Dyslipidemia, CAD, PTCA/Stent, CHF Pulm: Asthma Hepatic: Hepatitis (C), Cirrhosis GI: Other (history of colon cancer status post colectomy with colostomy) Surgery & Anesthesia Issues No known issue Meds Anticoagulation: No Beta Magnolia within 24 hr: No Reason Beta Magnolia not given: Pt. not on B-Magnolia Active Scripts Hydrocodone Bit-Acetaminophen (Hydrocodone Bit-APAP) 5-325MG Tablet, 1 TAB PO Q4H PRN for MODERATE PAIN LEVEL 4-6, #20 TAB Prov:BRITTANEY REESE 04/11/18 Reported Medications Bisacodyl* (Dulcolax*) 5 Mg Tablet.dr, 10 MG PO DAILY PRN for CONSTIPATION, TAB 07/06/18 Lactulose* (Lactulose*) 10 Gm/15 Ml Solution, 15 ML PO NEEDED, ML 07/05/18 Nitroglycerin* (Nitrostat*) 0.4 Mg Tab.subl, 0.4 MG SL Q5MIN PRN for CHEST PAIN, BOTTLE 05/28/18 Multivitamins* (Theragran*) 1 Tab Tab, 1 TAB PO DAILY, TAB 05/28/18 Lorazepam* (Lorazepam*) 0.5 Mg Tablet, 0.5 MG PO HS PRN for ANXIETY, TAB 05/28/18 Aspirin Ec (Aspir 81) 81 Mg Tablet.dr, 81 MG PO DAILY, #30 TAB 05/28/18 Albuterol Sulfate* (Ventolin HFA*) 18 Gm Hfa.aer.ad, 2 PUFF INHALATION Q4H, #1 INHALER 05/28/18 Buprenorphine (Butrans) 1 Each Patch.tdwk, 1 EACH TD Q7DAYS 04/09/18 Docusate Sodium* (Colace*) 100 Mg Capsule, 100 MG PO QAM, #30 CAP 04/09/18 Omeprazole* (Omeprazole*) 40 Mg Capsule.dr, 40 MG PO AC BREAKFAST, #30 CAP 04/09/18 Discontinued Reported Medications Lactose-Reduced Food (Boost) 237 Ml Liquid 05/28/18 Discontinued Scripts Hydrocodone/Acetaminophen ([place] 5-325 Tablet) 1 Each Tablet, 1 EACH PO BID, #14 TAB Prov:CAMILO RAMSAY 06/04/18 Current Medications Bisacodyl (Dulcolax) 10 mg DAILY PRN PO CONSTIPATION; Start 07/06/18 at 02:30 Docusate Sodium (Colace) 100 mg DAILY PO Last administered on 07/06/18at 08:41; Admin Dose 100 MG; Start 07/06/18 at 09:00 Aspirin (Ecotrin) 325 mg DAILY PO Last administered on 07/06/18at 08:41; Admin Dose 325 MG; Start 07/06/18 at 09:00 Nitroglycerin (Nitroglycerin (Sl Tab) 0.4 Mg) 1 tab Q5M PRN SL ANGINA; Start 07/06/18 at 02:30 Morphine Sulfate (morphine) 2 mg Q4H PRN IV SEVERE PAIN LEVEL 7-10 Last administered on 07/07/18at 06:39; Admin Dose 2 MG; Start 07/06/18 at 02:30 Acetaminophen/ Hydrocodone Bitart ([place] (5/325)) 1 tab Q4H PRN PO MODERATE PAIN LEVEL 4-6; Start 07/06/18 at 02:30 Lactulose (Enulose) 10 gm DAILY PRN PO CONSTIPATION; Start 07/06/18 at 02:30 Multivitamins Therapeutic (Theragran) 1 tab DAILY PO Last administered on 06/08 02/24at 08:41; Admin Dose 1 TAB; Start 07/06/18 at 09:00 Pantoprazole (Protonix Tab) 40 mg DAILY@06 PO Last administered on 07/07/18at 06:02; Admin Dose 40 MG; Start 07/06/18 at 06:00 Albuterol (Ventolin Hfa) 2 puff Q4HWA RESP THERAPY INH Last administered on 07/06/18at 21:00; Admin Dose 2 PUFF; Start 07/06/18 at 02:31 Lorazepam (Ativan) 0.5 mg HS PRN PO ANXIETY Last administered on 07/07/18at 00:32 ; Admin Dose 0.5 MG; Start 07/06/18 at 03:30 Ondansetron HCl (Zofran Inj) 4 mg Q4H PRN IV NAUSEA AND/OR VOMITING; Start 07/06/18 at 03:30 Cephalexin (Keflex) 500 mg Q6 PO Last administered on 07/07/18at 06:02; Admin Dose 500 MG; Start 07/06/18 at 12:00 Meds reviewed: Yes Allergies Coded Allergies: acetaminophen (Verified Adverse Reaction, Severe, CANNOT TAKE BEACUSE OF CIRRHOSIS, 07/05/18) ibuprofen (Verified Adverse Reaction, Severe, CANNOT TAKE BEACUSE CAUSES GI BLEED, 07/05/18) Allergies Reviewed: Yes Labs/Studies Labs Reviewed: Reviewed by anesthesiologist Result Diagram: 07/07/1862707/07/18627 Laboratory Tests 07/07/18 06:28 test: N/A Studies: ECG, CXR, Stress test, 2D Echo Pre-procedure Exam Last vitals Vital Signs Date Temp Pulse Resp B/P (MAP) Pulse Ox O2 O2 Flow FiO2 Time Delivery Rate 07/07/18 97.3 60 18 103/59 97 07:24 (74) 07/06/18 Room Air 01:13 Airway: Adequate mouth opening, Adequate thyromental dist Mallampati: Mallampati II Teeth: Normal Lung: Normal Heart: Normal ASA Physical Status ASA physical status: 3 Emergency: None Planned Anesthetic General/MAC: Mask Planned Pain Management Parenteral pain med Pre-operative Attestations Prior to commencing anesthesia and surgery, the patient was re-evaluated, there was verification of: *The patient's identity *The results of appropriate recent lab work and preoperative vital signs *The above evaluation not changing prior to induction *Anesthetic plan, risk benefits, alternative and complications discussed with patient/family; questions answered; patient/family understands, accepts and wishes to proceed. THEODORE MALLORY MD Jul 07, 2018 09:39
[2018-07-07] MEDS ORDERED: HYDROmorphONE 1 MG/5 ML IV SYRINGE IV PRN (10:00)
[2018-07-07] MEDS ORDERED: ONDANSETRON 4 MG INJ IV PRN (10:00)
[2018-07-07] MEDS ORDERED: MEPERIDINE 25 MG INJ IV PRN (10:00)
[2018-07-07] MEDS ORDERED: DIPHENHYDRAMINE 50 MG INJ IV PRN (10:00)
[2018-07-07] MEDS ORDERED: PROPOFOL 20 ML ONE (10:16)
[2018-07-07] MEDS ORDERED: LIDOCAINE 2% (SDV) 5 ML INJ ONE (10:16)
[2018-07-07] MEDS ORDERED: MIDAZOLAM 1 MG/ML 2 ML INJ ONE (10:16)
[2018-07-07] MEDS ORDERED: EPHEDrine 25 MG/5 ML SYG ONE (10:33)
--- NOTE | 2018-07-07 10:47 | OPR ---
Date/Time of Note Date/Time of Note DATE: 07/07/18 TIME: 10:44 Operative Report Preoperative Diagnosis abd pain vomiting r/o pud gastritis Postoperative Diagnosis antral erosive gastritis prepyloric polyp nodular fundal mucosa Operation/Procedure Performed egd and bx Surgeon see signature line Trades Helper none Anesthesia Type: MAC Anesthesiologist: THEODORE MALLORY MD Estimated Blood Loss: none Transfusion none Specimen gastric bx Grafts/Implants none Tubes/Drains none Complications none Pt Condition Post Procedure: stable Disposition: PACU Procedure Description egd performed antral polyp bx done bx done to r/o h pylori PAULA STARKS MD Jul 07, 2018 10:47
--- NOTE | 2018-07-07 10:50 | PAC ---
Date/Time of Note Date/Time of Note DATE: 07/07/18 TIME: 10:49 Post-Anesthesia Notes Post-Anesthesia Note Last documented vital signs Vital Signs Date Temp Pulse Resp B/P (MAP) Pulse Ox O2 O2 Flow FiO2 Time Delivery Rate 07/07/18 58 08:01 07/07/18 97.3 18 103/59 97 07:24 (74) 07/06/18 Room Air 01:13 Activity: WNL Respiratory function: WNL Cardiovascular function: WNL Mental status: Baseline Pain reasonably controlled: Yes Hydration appropriate: Yes Nausea/Vomiting absent: Yes Comments BP: 90/60 HR: 85 RR: 15 T: 99.9 SaO2: 98% THEODORE MALLORY MD Jul 07, 2018 10:50
[2018-07-07] MEDS ORDERED: BARIUM SULF 2% 450 ML BTL (BERRY SMOOTHIE) PO ONE (11:00)
--- NOTE | 2018-07-07 11:29 | PN ---
Date/Time of Note Date/Time of Note DATE: 07/07/18 TIME: 11:28 Assessment/Plan VTE Prophylaxis Risk score (from Nsg)>0 risk: 5 SCD applied (from Nsg): Yes Pharmacological prophylaxis: LMWH Lines/Catheters IV Catheter Type (from Nrsg): [place] Assessment/Plan Hospital Course - Chest wall Pain r/oACS - admit to Tele - cardiology consult - 2-D echo - CHD panel - CBC - CMP - TSH - MSO4- pain control; Zofran for nausea Workup ongoing Result Diagram: 07/07/18 0628 07/07/18 0628 Results 24hrs Laboratory Tests Test 07/06/18 12:16 07/07/18 06:28 Sodium Level 141 142 Potassium Level 4.3 4.0 Chloride Level 106 104 Carbon Dioxide Level 28 32 H Anion Gap 7 6 Blood Urea Nitrogen 13 16 Creatinine 0.60 0.62 Est Glomerular Filtrat Rate mL/min > 60 > 60 Glucose Level 102 97 Calcium Level 8.9 9.0 Total Bilirubin 0.5 Direct Bilirubin 0.00 Indirect Bilirubin 0.5 Aspartate Amino Transf (AST/SGOT) 24 Alanine Aminotransferase (ALT/SGPT) 35 Alkaline Phosphatase 72 Total Protein 7.3 Albumin 4.0 Globulin 3.30 H Albumin/Globulin Ratio 1.21 Amylase Level 86 Lipase 167 White Blood Count 2.8 #L Red Blood Count 4.39 Hemoglobin 12.2 Hematocrit 38.8 Mean Corpuscular Volume 88.4 Mean Corpuscular Hemoglobin 27.8 L Mean Corpuscular Hemoglobin Concent 31.4 L Red Cell Distribution Width 13.8 Platelet Count 71 L Mean Platelet Volume 11.2 H Immature Granulocytes % 0.000 L Neutrophils % Segmented Neutrophils % (Manual) 41 Lymphocytes % Lymphocytes % (Manual) 39 Monocytes % Monocytes % (Manual) 8 Eosinophils % Eosinophils % (Manual) 10 H Basophils % Basophils % (Manual) 2 Nucleated Red Blood Cells % 0.0 Immature Granulocytes # 0.000 Neutrophils # Lymphocytes (Manual) 1.0 Lymphocytes # Monocytes # Monocytes # (Manual) 0.2 L Eosinophils # Basophils # Basophils # (Manual) 0.0 Nucleated Red Blood Cells # Platelet Estimate DECREASED Giant Platelets 1 H Polychromasia 1+ Poikilocytosis 1+ Anisocytosis 1+ Ovalocytes 1+ Subjective 24 Hr Interval Summary Free Text/Dictation Patient still having chest pain but may be due to GERD Exam/Review of Systems Exam Vitals Vital Signs Date Temp Pulse Resp B/P (MAP) Pulse Ox O2 O2 Flow FiO2 Time Delivery Rate 07/07/18 84 22 146/70 96 Room Air 10:50 (95) 07/07/18 98.2 10:46 Intake and Output 07/06/18 07/06/18 07/07/18 1515:00 23:00 07:00 IntakeIntake Total 400 ml BalanceBalance 400 ml Constitutional: well developed Head: normocephalic, atraumatic Neck: supple Respiratory: diminished breath sounds Cardiovascular: regular rate and rhythm Gastrointestinal: soft, non-tender Extremities: normal pulses Results Results 24hrs Laboratory Tests Test 07/06/18 12:16 07/07/18 06:28 Sodium Level 141 142 Potassium Level 4.3 4.0 Chloride Level 106 104 Carbon Dioxide Level 28 32 H Anion Gap 7 6 Blood Urea Nitrogen 13 16 Creatinine 0.60 0.62 Est Glomerular Filtrat Rate mL/min > 60 > 60 Glucose Level 102 97 Calcium Level 8.9 9.0 Total Bilirubin 0.5 Direct Bilirubin 0.00 Indirect Bilirubin 0.5 Aspartate Amino Transf (AST/SGOT) 24 Alanine Aminotransferase (ALT/SGPT) 35 Alkaline Phosphatase 72 Total Protein 7.3 Albumin 4.0 Globulin 3.30 H Albumin/Globulin Ratio 1.21 Amylase Level 86 Lipase 167 White Blood Count 2.8 #L Red Blood Count 4.39 Hemoglobin 12.2 Hematocrit 38.8 Mean Corpuscular Volume 88.4 Mean Corpuscular Hemoglobin 27.8 L Mean Corpuscular Hemoglobin Concent 31.4 L Red Cell Distribution Width 13.8 Platelet Count 71 L Mean Platelet Volume 11.2 H Immature Granulocytes % 0.000 L Neutrophils % Segmented Neutrophils % (Manual) 41 Lymphocytes % Lymphocytes % (Manual) 39 Monocytes % Monocytes % (Manual) 8 Eosinophils % Eosinophils % (Manual) 10 H Basophils % Basophils % (Manual) 2 Nucleated Red Blood Cells % 0.0 Immature Granulocytes # 0.000 Neutrophils # Lymphocytes (Manual) 1.0 Lymphocytes # Monocytes # Monocytes # (Manual) 0.2 L Eosinophils # Basophils # Basophils # (Manual) 0.0 Nucleated Red Blood Cells # Platelet Estimate DECREASED Giant Platelets 1 H Polychromasia 1+ Poikilocytosis 1+ Anisocytosis 1+ Ovalocytes 1+ Medications Medication Current Medications Bisacodyl (Dulcolax) 10 mg DAILY PRN PO CONSTIPATION; Start 07/06/18 at 02:30 Docusate Sodium (Colace) 100 mg DAILY PO Last administered on 07/06/18 08:41; Admin Dose 100 MG; Start 07/06/18 at 09:00 Aspirin (Ecotrin) 325 mg DAILY PO Last administered on 07/06/18 08:41; Admin D ose 325 MG; Start 07/06/18 at 09:00 Nitroglycerin (Nitroglycerin (Sl Tab) 0.4 Mg) 1 tab Q5M PRN SL ANGINA; Start 07/06/18 at 02:30 Morphine Sulfate (morphine) 2 mg Q4H PRN IV SEVERE PAIN LEVEL 7-10 Last administered on 07/07/18 06:39; Admin Dose 2 MG; Start 07/06/18 at 02:30 Acetaminophen/ Hydrocodone Bitart ([place] (5/325)) 1 tab Q4H PRN PO MODERATE PAIN LEVEL 4-6; Start 07/06/18 at 02:30 Lactulose (Enulose) 10 gm DAILY PRN PO CONSTIPATION; Start 07/06/18 at 02:30 Multivitamins Therapeutic (Theragran) 1 tab DAILY PO Last administered on 07/06/18 08:41; Admin Dose 1 TAB; Start 07/06/18 at 09:00 Pantoprazole (Protonix Tab) 40 mg DAILY@06 PO Last administered on 07/07/18 06:02; Admin Dose 40 MG; Start 07/06/18 at 06:00 Albuterol (Ventolin Hfa) 2 puff Q4HWA RESP THERAPY INH Last administered on 07/06/18at 21:00; Admin Dose 2 PUFF; Start 07/06/18 at 02:31 Lorazepam (Ativan) 0.5 mg HS PRN PO ANXIETY Last administered on 07/07/18 00:32; Admin Dose 0.5 MG; Start 07/06/18 at 03:30 Ondansetron HCl (Zofran Inj) 4 mg Q4H PRN IV NAUSEA AND/OR VOMITING; Start 07/06/18 at 03:30 Cephalexin (Keflex) 500 mg Q6 PO Last administered on 07/07/18 06:02; Admin Dose 500 MG; Start 07/06/18 at 12:00 Hydromorphone HCl (Dilaudid) 0.4 mg PACU PRN IV PAIN; Start 07/07/18 at 10:00; Stop 07/07/18 at 16:00 Ondansetron HCl (Zofran Inj) 4 mg PACU ORDER PRN IV NAUSEA/VOMITING; Start 07/07/18 at 10:00; Stop 07/07/18 at 16:00 Meperidine HCl (Demerol) 25 mg PACU ORDER PRN IV .RIGORS; Start 07/07/18 at 10:00; Stop 07/07/18 at 16:00 Diphenhydramine HCl (Benadryl) 25 mg PACU ORDER PRN IV .PRURITUS; Start 07/07/18 at 10:00; Stop 07/07/18 at 16:00 PA WEINSTEIN Jul 07, 2018 11:29
[2018-07-07] MEDS: DOCUSATE SODIUM 100 MG CAP PO SCH (11:34)
[2018-07-07] MEDS: ASPIRIN (EC) 325 MG TAB PO SCH (11:34)
[2018-07-07] MEDS: MULTIVITAMINS THERAPEUTIC TAB PO SCH (11:34)
--- NOTE | 2018-07-07 11:51 | CONS ---
Consult Date/Type/Reason Admit Date/Time Jul 07, 2018 at 07:07 Initial Consult Date Requesting Provider: DAVI KAHN MD Date/Time of Note DATE: 07/07/18 TIME: 11:49 Subjective NO acute events - pt comfortable s/p EGD - tolerated procedure well. ROS: No fever, no chills, no nausea, no vomiting, no diarrhea/constipation No recent weight changes No chest pain, no PND, no orthopnea - mild SOB No dizziness, blurred vision No thirst, no heat or cold intolerance Objective Vitals Vital Signs Date Temp Pulse Resp B/P (MAP) Pulse Ox O2 O2 Flow FiO2 Time Delivery Rate 07/07/18 98.2 78 18 118/62 96 11:43 (80) 07/07/18 Room Air 11:20 Intake and Output 07/06/18 07/06/18 07/07/18 1515:00 23:00 07:00 IntakeIntake Total 400 ml BalanceBalance 400 ml Exam General: WN/WD/NAD, AOx 3 HEENT: Unicetric/atraumatic/EOMI ( follow commands) NECK: JVD elevated, no thyromegaly Lymph: no lymphadenopathy HEART: regular with no S3, II/ systolic murmur at apex LUNGS: Coarse sounds ABD: soft, NT, ND, +BS : Intact Neuro: non focal SKIN: chronic changes EXT: trace edema Results/Medications Result Diagram: 07/07/1828 07/07/1828 Results 24 hrs Laboratory Tests Test 07/06/18 12:16 07/07/18 06:28 07/07/18 06:29 Sodium Level 141 142 Potassium Level 4.3 4.0 Chloride Level 106 104 Carbon Dioxide Level 28 32 H Anion Gap 7 6 Blood Urea Nitrogen 13 16 Creatinine 0.60 0.62 Est Glomerular Filtrat Rate mL/min > 60 > 60 Glucose Level 102 97 Calcium Level 8.9 9.0 Total Bilirubin 0.5 Direct Bilirubin 0.00 Indirect Bilirubin 0.5 Aspartate Amino Transf (AST/SGOT) 24 Alanine Aminotransferase (ALT/SGPT) 35 Alkaline Phosphatase 72 Total Protein 7.3 Albumin 4.0 Globulin 3.30 H Albumin/Globulin Ratio 1.21 Amylase Level 86 Lipase 167 White Blood Count 2.8 #L Red Blood Count 4.39 Hemoglobin 12.2 Hematocrit 38.8 Mean Corpuscular Volume 88.4 Mean Corpuscular Hemoglobin 27.8 L Mean Corpuscular Hemoglobin Concent 31.4 L Red Cell Distribution Width 13.8 Platelet Count 71 L Mean Platelet Volume 11.2 H Immature Granulocytes % 0.000 L Neutrophils % Segmented Neutrophils % (Manual) 41 Lymphocytes % Lymphocytes % (Manual) 39 Monocytes % Monocytes % (Manual) 8 Eosinophils % Eosinophils % (Manual) 10 H Basophils % Basophils % (Manual) 2 Nucleated Red Blood Cells % 0.0 Immature Granulocytes # 0.000 Neutrophils # Lymphocytes (Manual) 1.0 Lymphocytes # Monocytes # Monocytes # (Manual) 0.2 L Eosinophils # Basophils # Basophils # (Manual) 0.0 Nucleated Red Blood Cells # Platelet Estimate DECREASED Giant Platelets 1 H Polychromasia 1+ Poikilocytosis 1+ Anisocytosis 1+ Ovalocytes 1+ Carcinoembryonic Antigen 3.5 Home Meds Active Scripts Hydrocodone Bit-Acetaminophen (Hydrocodone Bit-APAP) 5-325MG Tablet, 1 TAB PO Q4H PRN for MODERATE PAIN LEVEL 4-6, #20 TAB Prov:BRITTANEY REESE 04/11/18 Reported Medications Bisacodyl* (Dulcolax*) 5 Mg Tablet.dr, 10 MG PO DAILY PRN for CONSTIPATION, TAB 07/06/18 Lactulose* (Lactulose*) 10 Gm/15 Ml Solution, 15 ML PO NEEDED, ML 07/05/18 Nitroglycerin* (Nitrostat*) 0.4 Mg Tab.subl, 0.4 MG SL Q5MIN PRN for CHEST PAIN, BOTTLE 05/28/18 Multivitamins* (Theragran*) 1 Tab Tab, 1 TAB PO DAILY, TAB 05/28/18 Lorazepam* (Lorazepam*) 0.5 Mg Tablet, 0.5 MG PO HS PRN for ANXIETY, TAB 05/28/18 Aspirin Ec (Aspir 81) 81 Mg Tablet.dr, 81 MG PO DAILY, #30 TAB 05/28/18 Albuterol Sulfate* (Ventolin HFA*) 18 Gm Hfa.aer.ad, 2 PUFF INHALATION Q4H, #1 INHALER 05/28/18 Buprenorphine (Butrans) 1 Each Patch.tdwk, 1 EACH TD Q7DAYS 04/09/18 Docusate Sodium* (Colace*) 100 Mg Capsule, 100 MG PO QAM, #30 CAP 04/09/18 Omeprazole* (Omeprazole*) 40 Mg Capsule.dr, 40 MG PO AC BREAKFAST, #30 CAP 04/09/18 Discontinued Reported Medications Lactose-Reduced Food (Boost) 237 Ml Liquid 05/28/18 Discontinued Scripts Hydrocodone/Acetaminophen ([facility] 5-325 Tablet) 1 Each Tablet, 1 EACH PO BID, #14 TAB Prov:SADEORA,CAMILO 06/04/18 Medications Current Medications Bisacodyl (Dulcolax) 10 mg DAILY PRN PO CONSTIPATION; Start 07/06/18 at 02:30 Docusate Sodium (Colace) 100 mg DAILY PO Last administered on 07/07/18 11:34; Admin Dose 100 MG; Start 07/06/18 at 09:00 Aspirin (Ecotrin) 325 mg DAILY PO Last administered on 07/07/18 11:34; Admin Dose 325 MG; Start 07/06/18 at 09:00 Nitroglycerin (Nitroglycerin (Sl Tab) 0.4 Mg) 1 tab Q5M PRN SL ANGINA; Start 07/06/18 at 02:30 Morphine Sulfate (morphine) 2 mg Q4H PRN IV SEVERE PAIN LEVEL 7-10 Last administered on 07/07/18at 11:39; Admin Dose 2 MG; Start 07/06/18 at 02:30 Acetaminophen/ Hydrocodone Bitart ([facility] (5/325)) 1 tab Q4H PRN PO MODERATE PAIN LEVEL 4-6; Start 07/06/18 at 02:30 Lactulose (Enulose) 10 gm DAILY PRN PO CONSTIPATION; Start 07/06/18 at 02:30 Multivitamins Therapeutic (Theragran) 1 tab DAILY PO Last administered on 07/07/18at 11:34; Admin Dose 1 TAB; Start 07/06/18 at 09:00 Pantoprazole (Protonix Tab) 40 mg DAILY@06 PO Last administered on 07/07/18at 06:02; Admin Dose 40 MG; Start 07/06/18 at 06:00 Albuterol (Ventolin Hfa) 2 puff Q4HWA RESP THERAPY INH Last administered on 07/06/18at 21:00; Admin Dose 2 PUFF; Start 07/06/18 at 02:31 Lorazepam (Ativan) 0.5 mg HS PRN PO ANXIETY Last administered on 07/07/18at 00:32; Admin Dose 0.5 MG; Start 07/06/18 at 03:30 Ondansetron HCl (Zofran Inj) 4 mg Q4H PRN IV NAUSEA AND/OR VOMITING; Start 07/06/18 at 03:30 Cephalexin (Keflex) 500 mg Q6 PO Last administered on 07/07/18at 11:34; Admin Dose 500 MG; Start 07/06/18 at 12:00 Hydromorphone HCl (Dilaudid) 0.4 mg PACU PRN IV PAIN; Start 07/07/18 at 10:00; Stop 07/07/18 at 16:00 Ondansetron HCl (Zofran Inj) 4 mg PACU ORDER PRN IV NAUSEA/VOMITING; Start 07/07/18 at 10:00; Stop 07/07/18 at 16:00 Meperidine HCl (Demerol) 25 mg PACU ORDER PRN IV .RIGORS; Start 07/07/18 at 10:00; Stop 07/07/18 at 16:00 Diphenhydramine HCl (Benadryl) 25 mg PACU ORDER PRN IV .PRURITUS; Start 07/07/18 at 10:00; Stop 07/07/18 at 16:00 Assessment/Plan Hospital Course (Demo Recall) 1. Chest pain, assess for acute coronary syndrome with negative troponins x3 and recently negative cardiac stress test on 05/2018, EF of 50% - r/o WA. 2. History of cardiomyopathy with mildly depressed left ventricular ejection by echo 45% to 50% and by stress at the same twila - not in chf by exam now. 3. History of PTCA and stent placement per patient in 2011. The patient also discussed me that she is unsure she has ever had a stent, although she states she has had one and states she is under a lot of anxiety and stress during that time. 4. History of colon carcinoma, status post colectomy with colostomy- GI follows. 5. Dyspnea on exertion and shortness of breath- improved. 6. History of asthma per patient. 7. Chronic constipation. 8. Thrombocytopenia. 9. History of hepatitis C and cirrhosis. 10. POST EGD - tolerated well. PANFILO RAMIREZ MD Jul 07, 2018 11:51
[2018-07-07] MEDS: ALBUTEROL HFA 8 GM INHALER INH SCH ×4 (13:00→20:00)
[2018-07-07] MEDS ORDERED: SOD CHLORIDE 0.9% 100 ML ONE (22:01)
[2018-07-07] MEDS ORDERED: IOHEXOL 300MG/ML 150 ML BTL ONE (22:01)
[2018-07-08] VITALS (12 sets, daily range): BP systolic 92–117; BP diastolic 50–67; PULSE 61–98; RESP 18–20
[2018-07-08] MEDS: morphine 2 MG INJ IV PRN ×6 (00:12→22:48)
--- NOTE | 2018-07-08 01:32 | GILP ---
DATE OF PROCEDURE: NAME OF PROCEDURE: Esophagogastroduodenoscopy. PREOPERATIVE DIAGNOSIS: The patient presenting with history of abdominal pain and vomiting. The pat ient has history of colon cancer surgery done in the past. At this time, procedure performed to rule out peptic ulcer disease, gastritis. POSTOPERATIVE DIAGNOSES: 1. Small antral polyp noted. Biopsy was done. 2. Multiple antral erosions noted. Biopsy was done. 3. Superficial nodular mucosa was noted in the fundus. DESCRIPTION OF PROCEDURE: After the informed written consent was obtained, the patient was asked to lie on the left lateral side. Intravenous anesthesia was given by anesthesiologist, Dr. Danisha Ford. When the patient became somnolent, the Olympus video upper endoscope was inserted into the oropharyn x, then into the esophagus. Esophagus appeared to show normal mucosal pattern, no esophagitis noted. Scope at this time was advanced into the stomach. Stomach showed evidence of multiple erosions in the antrum. A 4 mm hemorrhagic polyp was noted in the prepyloric area. This polyp was biopsied. Fu ndus of the stomach showed evidence of a nodular mucosa. Biopsy was done from the antrum, lesser cur vature and the fundus to rule out H. pylori infection. Mucosa of the duodenum from the pylorus up to the end of the third portion appeared normal. No duodenitis. No ulcer noted. Scope at this time w as withdrawn. On the way out, no additional abnormalities detected and the procedure was terminated. PLAN: Recommend Protonix 40 mg q.a.m. and Reglan 10 mg a.c. as needed. Dictated By: PAULA FARRIS/JUANITO Conf#: [id number] DID#: [id number] CC: DAVI KAHN MD;*EndCC*
[2018-07-08] MEDS: CEPHALEXIN 500 MG CAP PO SCH ×4 (05:36→22:47)
[2018-07-08] MEDS: PANTOPRAZOLE (EC) 40 MG TAB PO SCH (05:36)
[2018-07-08] MEDS: LORAZEPAM 0.5 MG TAB PO PRN ×2 (06:42→20:51)
--- NOTE | 2018-07-08 08:58 | CONS ---
Assessment/Plan Assessment/Plan Assessment/Plan (Recall) 57 yo F with hx of metastatic colon CA and other comorbidities who presents for evaluation of chest pain, dizziness, and other sx. UA + She was additionally noted to have a recurrent and severe headache... for which neurology is consulted. The clinical picture is most consistent with recurrent migraine. A focal PARENT PARTNER process is, though, not entirely excluded. (Patient continues to refuse brain MRI) Of note, a recent CSF evaluation was reassuringly negative P: MRI brain with and without contrast for further characterization when able Start Topamax for migraine ppx for now Other medical management and supportive care per primary Will follow clinically Consultation Date/Type/Reason Admit Date/Time Jul 07, 2018 at 07:07 Type of Consult Neurology Reason for Consultation headache Requesting Provider: DAVI KAHN MD Date/Time of Note DATE: 07/08/18 TIME: 08:55 24 HR Interval Summary Free Text/Dictation Continues acute care. States headache is now improved some, to 07/16...(from 11/15) Exam/Review of Systems Exam Vitals Vital Signs Date Temp Pulse Resp B/P (MAP) Pulse Ox O2 O2 Flow FiO2 Time Delivery Rate 07/08/18 71 08:01 07/08/18 98.3 19 98/53 (68) 97 Room Air 07:06 Intake and Output 07/07/18 07/07/18 07/08/18 1515:00 23:00 07:00 IntakeIntake Total 0 ml 600 ml 500 ml BalanceBalance 0 ml 600 ml 500 ml Exam PE: Gen Appearance: No Apparent Distress HEENT: Normocephalic Cardiovascular: Regular rate Lungs: Clear bilaterally Abdomen: Soft Extremities: Dry NE: The patient was alert and oriented. Language was normal. Fund of knowledge was normal. Pupils were equal and reactive to light. There was no afferent pupillary defect. Visual lipscomb were normal. Funduscopic examination was limited. Extra-ocular movements were full. Ptosis was absent. There was no nystagmus. Facial sensation was normal. Face was symmetric with normal strength. Hearing was intact. Palate movements were normal. Neck strength was normal. There was normal tongue bulk and speed of movement. Tone was normal. Muscle bulk was normal. I did not see fasciculations. Arms and legs were strong. Vibration sensation was normal. Temperature and pinprick sensation was normal. Rapid alternating movements were normal. There was no dysmetria. There was no intention tremor. Gait was deferred due to bedrest. Arm and leg reflexes were 2+ and symmetric. Carroll's sign was absent. Plantar responses were flexor. Results Result Diagram: 07/07/1862707/07/18627 Medications Medication Current Medications Bisacodyl (Dulcolax) 10 mg DAILY PRN PO CONSTIPATION; Start 07/06/18 at 02:30 Docusate Sodium (Colace) 100 mg DAILY PO Last administered on 07/07/18 11:34; Admin Dose 100 MG; Start 07/06/18 at 09:00 Aspirin (Ecotrin) 325 mg DAILY PO Last administered on 07/07/18 11:34; Admin Dose 325 MG; Start 07/06/18 at 09:00 Nitroglycerin (Nitroglycerin (Sl Tab) 0.4 Mg) 1 tab Q5M PRN SL ANGINA; Start 07/06/18 at 02:30 Morphine Sulfate (morphine) 2 mg Q4H PRN IV SEVERE PAIN LEVEL 7-10 Last administered on 07/08/18at 04:01; Admin Dose 2 MG; Start 07/06/18 at 02:30 Acetaminophen/ Hydrocodone Bitart ([place] (5/325)) 1 tab Q4H PRN PO MODERATE PAIN LEVEL 4-6; Start 07/06/18 at 02:30 Lactulose (Enulose) 10 gm DAILY PRN PO CONSTIPATION; Start 07/06/18 at 02:30 Multivitamins Therapeutic (Theragran) 1 tab DAILY PO Last administered on 07/07/18 11:34; Admin Dose 1 TAB; Start 07/06/18 at 09:00 Pantoprazole (Protonix Tab) 40 mg DAILY@06 PO Last administered on 07/08/18 05:36; Admin Dose 40 MG; Start 07/06/18 at 06:00 Albuterol (Ventolin Hfa) 2 puff Q4HWA RESP THERAPY INH Last administered on 07/07/18 20:00; Admin Dose 2 PUFF; Start 07/06/18 at 02:31 Lorazepam (Ativan) 0.5 mg HS PRN PO ANXIETY Last administered on 07/07/18at 19:41; Admin Dose 0.5 MG; Start 07/06/18 at 03:30 Ondansetron HCl (Zofran Inj) 4 mg Q4H PRN IV NAUSEA AND/OR VOMITING; Start at 03:30 Cephalexin (Keflex) 500 mg Q6 PO Last administered on 07/08/18at 05:36; Admin Dose 500 MG; Start 07/06/18 at 12:00 Lorazepam (Ativan) 0.5 mg Q8H PRN PO ANXIETY Last administered on 07/08/18at 06:42; Admin Dose 0.5 MG; Start 07/08/18 at 06:30 CHERRI WATSON Jul 08, 2018 08:58
[2018-07-08] MEDS: TOPIRAMATE 25 MG TAB PO SCH ×2 (09:00→20:53)
[2018-07-08] MEDS: ALBUTEROL HFA 8 GM INHALER INH SCH ×4 (09:03→20:53)
[2018-07-08] MEDS: ASPIRIN (EC) 325 MG TAB PO SCH (10:37)
[2018-07-08] MEDS: MULTIVITAMINS THERAPEUTIC TAB PO SCH (10:37)
[2018-07-08] MEDS: DOCUSATE SODIUM 100 MG CAP PO SCH (10:37)
--- NOTE | 2018-07-08 10:46 | PN ---
Date/Time of Note Date/Time of Note DATE: 07/08/18 TIME: 10:46 Assessment/Plan VTE Prophylaxis Risk score (from Nsg)>0 risk: 3 SCD applied (from Nsg): Yes Pharmacological prophylaxis: LMWH Lines/Catheters IV Catheter Type (from Nrsg): Peripheral IV Assessment/Plan Hospital Course - Chest wall Pain r/oACS - admit to Tele - cardiology consult - 2-D echo - CHD panel - CBC - CMP - TSH - MSO4- pain control; Zofran for nausea Workup ongoing Result Diagram: 07/07/1862707/07/18627 Subjective 24 Hr Interval Summary Free Text/Dictation Patient denies any further chest pain but did complain of headache Exam/Review of Systems Exam Vitals Vital Signs Date Temp Pulse Resp B/P (MAP) Pulse Ox O2 O2 Flow FiO2 Time Delivery Rate 07/08/18 71 08:01 07/08/18 98.3 19 98/53 (68) 97 Room Air 07:06 Intake and Output 07/07/18 07/07/18 07/08/18 1515:00 23:00 07:00 IntakeIntake Total 0 ml 600 ml 500 ml BalanceBalance 0 ml 600 ml 500 ml Constitutional: well developed Head: normocephalic, atraumatic Neck: supple Respiratory: clear to auscultation Cardiovascular: regular rate and rhythm Gastrointestinal: soft, non-tender Extremities: normal pulses Medications Medication Current Medications Bisacodyl (Dulcolax) 10 mg DAILY PRN PO CONSTIPATION; Start 07/06/18 at 02:30 Docusate Sodium (Colace) 100 mg DAILY PO Last administered on 07/08/18at 10:37; Admin Dose 100 MG; Start 07/06/18 at 09:00 Aspirin (Ecotrin) 325 mg DAILY PO Last administered on 07/08/18at 10:37; Admin Dose 325 MG; Start 07/06/18 at 09:00 Nitroglycerin (Nitroglycerin (Sl Tab) 0.4 Mg) 1 tab Q5M PRN SL ANGINA; Start 07/06/18 at 02:30 Morphine Sulfate (morphine) 2 mg Q4H PRN IV SEVERE PAIN LEVEL 7-10 Last administered on 07/08/18at 09:00; Admin Dose 2 MG; Start 07/06/18 at 02:30 Acetaminophen/ Hydrocodone Bitart ([place] (5/325)) 1 tab Q4H PRN PO MODERATE PAIN LEVEL 4-6; Start 07/06/18 at 02:30 Lactulose (Enulose) 10 gm DAILY PRN PO CONSTIPATION; Start 07/06/18 at 02:30 Multivitamins Therapeutic (Theragran) 1 tab DAILY PO Last administered on 07/08/18 10:37; Admin Dose 1 TAB; Start 07/06/18 at 09:00 Pantoprazole (Protonix Tab) 40 mg DAILY@06 PO Last administered on 07/08/18 05:36; Admin Dose 40 MG; Start 07/06/18 at 06:00 Albuterol (Ventolin Hfa) 2 puff Q4HWA RESP THERAPY INH Last administered on 07/08/18 09:03; Admin Dose 2 PUFF; Start 07/06/18 at 02:31 Lorazepam (Ativan) 0.5 mg HS PRN PO ANXIETY Last administered on 07/07/18 19:41; Admin Dose 0.5 MG; Start 07/06/18 at 03:30 Ondansetron HCl (Zofran Inj) 4 mg Q4H PRN IV NAUSEA AND/OR VOMITING; Start 06/08 02/24 at 03:30 Cephalexin (Keflex) 500 mg Q6 PO Last administered on 07/08/18 05:36; Admin Dose 500 MG; Start 07/06/18 at 12:00 Lorazepam (Ativan) 0.5 mg Q8H PRN PO ANXIETY Last administered on 07/08/18 06:42; Admin Dose 0.5 MG; Start 07/08/18 at 06:30 Topiramate (Topamax) 25 mg BID PO Last administered on 07/08/18 09:00; Admin Dose 25 MG; Start 07/08/18 at 09:00 PA WEINSTEIN Jul 08, 2018 10:46
--- NOTE | 2018-07-08 14:27 | CONS ---
Consult Date/Type/Reason Admit Date/Time Jul 07, 2018 at 07:07 Initial Consult Date Requesting Provider: DAVI KAHN MD Date/Time of Note DATE: 07/08/18 TIME: 14:25 Subjective NO acute events - pt stable - no ectopy on tele - tolerated EGD well. ROS: No fever, no chills, no nausea, no vomiting, no diarrhea/constipation No recent weight changes No chest pain, no PND, no orthopnea No dizziness, blurred vision No thirst, no heat or cold intolerance Objective Vitals Vital Signs Date Temp Pulse Resp B/P (MAP) Pulse Ox O2 O2 Flow FiO2 Time Delivery Rate 07/08/18 68 12:01 07/08/18 98.5 19 115/56 95 Room Air 11:57 (75) Intake and Output 07/07/18 07/07/18 07/08/18 1515:00 23:00 07:00 IntakeIntake Total 0 ml 600 ml 500 ml BalanceBalance 0 ml 600 ml 500 ml Exam General: WN/WD/NAD, AOx 3 HEENT: Unicetric/atraumatic/EOMI (follow commands) NECK: JVD elevated, no thyromegaly Lymph: no lymphadenopathy HEART: regular with no S3, II/ systolic murmur at apex LUNGS: Coarse sounds ABD: soft, NT, ND, +BS : Intact Neuro: non focal SKIN: chronic changes EXT: trace edema Results/Medications Result Diagram: 07/07/1862707/07/18627 Home Meds Active Scripts Hydrocodone Bit-Acetaminophen (Hydrocodone Bit-APAP) 5-325MG Tablet, 1 TAB PO Q4H PRN for MODERATE PAIN LEVEL 4-6, #20 TAB Prov:BRITTANEY REESE 04/11/18 Reported Medications Bisacodyl* (Dulcolax*) 5 Mg Tablet.dr, 10 MG PO DAILY PRN for CONSTIPATION, TAB 07/06/18 Lactulose* (Lactulose*) 10 Gm/15 Ml Solution, 15 ML PO NEEDED, ML 07/05/18 Nitroglycerin* (Nitrostat*) 0.4 Mg Tab.subl, 0.4 MG SL Q5MIN PRN for CHEST PAIN, BOTTLE 05/28/18 Multivitamins* (Theragran*) 1 Tab Tab, 1 TAB PO DAILY, TAB 05/28/18 Lorazepam* (Lorazepam*) 0.5 Mg Tablet, 0.5 MG PO HS PRN for ANXIETY, TAB 05/28/18 Aspirin Ec (Aspir 81) 81 Mg Tablet.dr, 81 MG PO DAILY, #30 TAB 05/28/18 Albuterol Sulfate* (Ventolin HFA*) 18 Gm Hfa.aer.ad, 2 PUFF INHALATION Q4H, #1 INHALER 05/28/18 Buprenorphine (Butrans) 1 Each Patch.tdwk, 1 EACH TD Q7DAYS 04/09/18 Docusate Sodium* (Colace*) 100 Mg Capsule, 100 MG PO QAM, #30 CAP 04/09/18 Omeprazole* (Omeprazole*) 40 Mg Capsule.dr, 40 MG PO AC BREAKFAST, #30 CAP 04/09/18 Discontinued Reported Medications Lactose-Reduced Food (Boost) 237 Ml Liquid 05/28/18 Discontinued Scripts Hydrocodone/Acetaminophen ([place] 5-325 Tablet) 1 Each Tablet, 1 EACH PO BID, #14 TAB Prov:CAMILO RAMSAY 06/04/18 Medications Current Medications Bisacodyl (Dulcolax) 10 mg DAILY PRN PO CONSTIPATION; Start 07/06/18 at 02:30 Docusate Sodium (Colace) 100 mg DAILY PO Last administered on 07/08/18at 10:37; Admin Dose 100 MG; Start 07/06/18 at 09:00 Aspirin (Ecotrin) 325 mg DAILY PO Last administered on 07/08/18at 10:37; Admin Dose 325 MG; Start 07/06/18 at 09:00 Nitroglycerin (Nitroglycerin (Sl Tab) 0.4 Mg) 1 tab Q5M PRN SL ANGINA; Start 07/06/18 at 02:30 Morphine Sulfate (morphine) 2 mg Q4H PRN IV SEVERE PAIN LEVEL 7-10 Last administered on 07/08/18at 14:02; Admin Dose 2 MG; Start 07/06/18 at 02:30 Acetaminophen/ Hydrocodone Bitart ([place] (5/325)) 1 tab Q4H PRN PO MODERATE PAIN LEVEL 4-6; Start 07/06/18 at 02:30 Lactulose (Enulose) 10 gm DAILY PRN PO CONSTIPATION; Start 07/06/18 at 02:30 Multivitamins Therapeutic (Theragran) 1 tab DAILY PO Last administered on 07/08/18 10:37; Admin Dose 1 TAB; Start 07/06/18 at 09:00 Pantoprazole (Protonix Tab) 40 mg DAILY@06 PO Last administered on 07/08/18 05:36; Admin Dose 40 MG; Start 07/06/18 at 06:00 Albuterol (Ventolin Hfa) 2 puff Q4HWA RESP THERAPY INH Last administered on 07/08/18 14:02; Admin Dose 2 PUFF; Start 07/06/18 at 02:31 Lorazepam (Ativan) 0.5 mg HS PRN PO ANXIETY Last administered on 07/07/18 19:41; Admin Dose 0.5 MG; Start 07/06/18 at 03:30 Ondansetron HCl (Zofran Inj) 4 mg Q4H PRN IV NAUSEA AND/OR VOMITING; Start 07/06/18 at 03:30 Cephalexin (Keflex) 500 mg Q6 PO Last administered on 07/08/18 14:02; Admin Dose 500 MG; Start 07/06/18 at 12:00 Lorazepam (Ativan) 0.5 mg Q8H PRN PO ANXIETY Last administered on 07/08/18 06:42; Admin Dose 0.5 MG; Start 07/08/18 at 06:30 Topiramate (Topamax) 25 mg BID PO Last administered on 07/08/18 09:00; Admin Dose 25 MG; Start 07/08/18 at 09:00 Assessment/Plan Hospital Course (Demo Recall) 1. Chest pain, assess for acute coronary syndrome with negative troponins x3 and recently negative cardiac stress test on 05/2018, EF of 50% - r/o DC. NO intervention planned. 2. History of cardiomyopathy with mildly depressed left ventricular ejection by echo 45% to 50% and by stress at the same twila - not in chf by exam now. 3. History of PTCA and stent placement per patient in 2011. The patient also discussed me that she is unsure she has ever had a stent, although she states she has had one and states she is under a lot of anxiety and stress during that time. 4. History of colon carcinoma, status post colectomy with colostomy- GI follows. 5. Dyspnea on exertion and shortness of breath- improved. Much better - negative tress test. 6. History of asthma per patient. 7. Chronic constipation. 8. Thrombocytopenia. 9. History of hepatitis C and cirrhosis. 10. POST EGD - tolerated well. GI follows. PANFILO RAMIREZ MD Jul 08, 2018 14:26
[2018-07-08] MEDS ORDERED: LORAZEPAM 2 MG INJ IV ONE (15:30)
[2018-07-09] VITALS (11 sets, daily range): BP systolic 100–139; BP diastolic 55–78; PULSE 61–114; RESP 18–20
[2018-07-09] MEDS: CEPHALEXIN 500 MG CAP PO SCH ×2 (05:10→11:32)
[2018-07-09] MEDS: morphine 2 MG INJ IV PRN ×2 (05:10→11:33)
[2018-07-09] MEDS: PANTOPRAZOLE (EC) 40 MG TAB PO SCH (05:10)
[2018-07-09] MEDS: LORAZEPAM 0.5 MG TAB PO PRN (05:40)
[2018-07-09] MEDS: MULTIVITAMINS THERAPEUTIC TAB PO SCH (08:57)
[2018-07-09] MEDS: DOCUSATE SODIUM 100 MG CAP PO SCH (08:58)
[2018-07-09] MEDS: ASPIRIN (EC) 325 MG TAB PO SCH (08:59)
[2018-07-09] MEDS: TOPIRAMATE 25 MG TAB PO SCH ×2 (08:59→20:27)
[2018-07-09] MEDS: ALBUTEROL HFA 8 GM INHALER INH SCH ×4 (09:00→21:00)
--- NOTE | 2018-07-09 11:55 | CONS ---
Assessment/Plan Assessment/Plan Hospital Course (Demo Recall) IMPRESSION: 1. Chest pain, assess for acute coronary syndrome with negative troponins x3 and recently negative cardiac stress test on 05/2018, EF of 50%. 2. History of cardiomyopathy with mildly depressed left ventricular ejection by echo 45% to 50% and by stress at the same time. 3. History of PTCA and stent placement per patient in 2011. The patient also discussed me that she is unsure she has ever had a stent, although she states she has had one and states she is under a lot of anxiety and stress during that time. 4. History of colon carcinoma, status post colectomy with colostomy. 5. Dyspnea on exertion and shortness of breath. 6. History of asthma per patient. 7. Chronic constipation. 8. Thrombocytopenia. 9. History of hepatitis C and cirrhosis. 10. FRANCO-ongoing 11.N/V Recc: -Tele -serial ecg's -Continue asa -continue to work-up etilogy for N/V -W/U fever -Contineu abx's -ongoing eval of FRANCO and neuro eval Consultation Date/Type/Reason Admit Date/Time Jul 07, 2018 at 07:07 Initial Consult Date 07/08/18 Type of Consult Cardiology Reason for Consultation Chest pain Requesting Provider: DAVI KAHN MD Date/Time of Note DATE: 07/09/18 TIME: 11:52 Exam/Review of Systems Vital Signs Vitals Vital Signs Date Temp Pulse Resp B/P (MAP) Pulse Ox O2 O2 Flow FiO2 Time Delivery Rate 07/09/18 100.6 95 18 124/71 93 Room Air 11:25 (88) Intake and Output 07/08/18 07/08/18 07/09/18 1515:00 23:00 07:00 IntakeIntake Total 1500 ml 850 ml BalanceBalance 1500 ml 850 ml Exam Exam Review of Systems: CONSTITUTIONAL: No fevers, chills. PULMONARY: No sob CARDIOVASCULAR:burning chest pain GASTROINTESTINAL: nausea/vomiting. GENITOURINARY: No hematuria/dysuria. MUSCULOSKELETAL: No myagias/arthalgias. PSYCHIATRIC: The patient denies depression. NEUROLOGIC: No weakness Constitutional: alert Psych: no complaints Head: normocephalic ENMT: mucosa pink and moist Neck: supple, jvd (9 cm water) Respiratory: diminished breath sounds (at bases/B) Cardiovascular: regular rate and rhythm Gastrointestinal: soft, non-tender Musculoskeletal: muscle tone (normal) Extremities: edema (none) Labs Result Diagram: 07/07/1862707/07/18627 Medications Medications Current Medications Bisacodyl (Dulcolax) 10 mg DAILY PRN PO CONSTIPATION; Start 07/06/18 at 02:30 Docusate Sodium (Colace) 100 mg DAILY PO Last administered on 07/09/18 08:58; Admin Dose 100 MG; Start 07/06/18 at 09:00 Aspirin (Ecotrin) 325 mg DAILY PO Last administered on 07/09/18 08:59; Admin Dose 325 MG; Start 07/06/18 at 09:00 Nitroglycerin (Nitroglycerin (Sl Tab) 0.4 Mg) 1 tab Q5M PRN SL ANGINA; Start 07/06/18 at 02:30 Morphine Sulfate (morphine) 2 mg Q4H PRN IV SEVERE PAIN LEVEL 7-10 Last administered on 07/09/18at 11:33; Admin Dose 2 MG; Start 07/06/18 at 02:30 Acetaminophen/ Hydrocodone Bitart ([place] (5/325)) 1 tab Q4H PRN PO MODERATE P AIN LEVEL 4-6; Start 07/06/18 at 02:30 Lactulose (Enulose) 10 gm DAILY PRN PO CONSTIPATION; Start 07/06/18 at 02:30 Multivitamins Therapeutic (Theragran) 1 tab DAILY PO Last administered on 07/09/18at 08:57; Admin Dose 1 TAB; Start 07/06/18 at 09:00 Pantoprazole (Protonix Tab) 40 mg DAILY@06 PO Last administered on 07/09/18at 05:10; Admin Dose 40 MG; Start 07/06/18 at 06:00 Albuterol (Ventolin Hfa) 2 puff Q4HWA RESP THERAPY INH Last administered on 07/08/18 20:53; Admin Dose 2 PUFF; Start 07/06/18 at 02:31 Lorazepam (Ativan) 0.5 mg HS PRN PO ANXIETY Last administered on 07/08/18 20:51; Admin Dose 0.5 MG; Start 07/06/18 at 03:30 Ondansetron HCl (Zofran Inj) 4 mg Q4H PRN IV NAUSEA AND/OR VOMITING Last administered on 07/09/18 11:32; Admin Dose 4 MG; Start 07/06/18 at 03:30 Cephalexin (Keflex) 500 mg Q6 PO Last administered on 07/09/18at 11:32; Admin Dose 500 MG; Start 07/06/18 at 12:00 Lorazepam (Ativan) 0.5 mg Q8H PRN PO ANXIETY Last administered on 07/09/18at 05:40; Admin Dose 0.5 MG; Start 07/08/18 at 06:30 Topiramate (Topamax) 25 mg BID PO Last administered on 07/09/18at 08:59; Admin Dose 25 MG; Start 07/08/18 at 09:00 RAVINDER DYER Jul 09, 2018 11:55
[2018-07-09] MEDS ORDERED: KETOROLAC 30 MG INJ IV STA (15:16)
--- NOTE | 2018-07-09 15:24 | CONS ---
Assessment/Plan Assessment/Plan Assessment/Plan (Recall) 57 yo F with hx of metastatic colon CA and other comorbidities who presents for evaluation of chest pain, dizziness, and other sx. UA + She was additionally noted to have a recurrent and severe headache... for which neurology is consulted. The clinical picture is most consistent with recurrent migraine. A focal CEMENTER OIL WELL process is unlikely MRI brain is reassuringly without acute intracranial pathology. Of note, a recent CSF evaluation was reassuringly negative P: Cont Topamax for migraine ppx for now Other medical management and supportive care per primary Will follow clinically Consultation Date/Type/Reason Admit Date/Time Jul 07, 2018 at 07:07 Type of Consult Neurology Reason for Consultation headache Requesting Provider: DAVI KAHN MD Date/Time of Note DATE: 07/09/18 TIME: 15:23 24 HR Interval Summary Free Text/Dictation Continues acute care. S/p MRI. Pt has continued c/o headache with nausea. Exam/Review of Systems Exam Vitals Vital Signs Date Temp Pulse Resp B/P (MAP) Pulse Ox O2 O2 Flow FiO2 Time Delivery Rate 07/09/18 74 12:01 07/09/18 100.6 18 124/71 93 Room Air 11:25 (88) Intake and Output 07/08/18 07/08/18 07/09/18 1515:00 23:00 07:00 IntakeIntake Total 1500 ml 850 ml BalanceBalance 1500 ml 850 ml Exam PE: Gen Appearance: Grimacing HEENT: Normocephalic Cardiovascular: Regular rate Lungs: Clear bilaterally Abdomen: Soft Extremities: Dry NE: The patient was alert and oriented. Language was normal. Fund of knowledge was normal. Pupils were equal and reactive to light. There was no afferent pupillary defect. Visual lipscomb were normal. Funduscopic examination was limited. Extra-ocular movements were full. Ptosis was absent. There was no nystagmus. Facial sensation was normal. Face was symmetric with normal strength. Hearing was intact. Palate movements were normal. Neck strength was normal. There was normal tongue bulk and speed of movement. Tone was normal. Muscle bulk was normal. I did not see fasciculations. Arms and legs were strong. Vibration sensation was normal. Temperature and pinprick sensation was normal. Rapid alternating movements were normal. There was no dysmetria. There was no intention tremor. Gait was deferred due to bedrest. Arm and leg reflexes were 2+ and symmetric. Carroll's sign was absent. Plantar responses were flexor. Results Result Diagram: 07/07/1862707/07/18627 Medications Medication Current Medications Bisacodyl (Dulcolax) 10 mg DAILY PRN PO CONSTIPATION; Start 07/06/18 at 02:30 Docusate Sodium (Colace) 100 mg DAILY PO Last administered on 07/09/18 08:58; Admin Dose 100 MG; Start 07/06/18 at 09:00 Aspirin (Ecotrin) 325 mg DAILY PO Last administered on 07/09/18at 08:59; Admin Dose 325 MG; Start 07/06/18 at 09:00 Nitroglycerin (Nitroglycerin (Sl Tab) 0.4 Mg) 1 tab Q5M PRN SL ANGINA; Start 07/06/18 at 02:30 Morphine Sulfate (morphine) 2 mg Q4H PRN IV SEVERE PAIN LEVEL 7-10 Last administered on 07/09/18at 11:33; Admin Dose 2 MG; Start 07/06/18 at 02:30 Acetaminophen/ Hydrocodone Bitart ([place] (5/325)) 1 tab Q4H PRN PO MODERATE PAIN LEVEL 4-6; Start 07/06/18 at 02:30 Lactulose (Enulose) 10 gm DAILY PRN PO CONSTIPATION; Start 07/06/18 at 02:30 Multivitamins Therapeutic (Theragran) 1 tab DAILY PO Last administered on 07/09/18at 08:57; Admin Dose 1 TAB; Start 07/06/18 at 09:00 Pantoprazole (Protonix Tab) 40 mg DAILY@06 PO Last administered on 07/09/18at 05:10; Admin Dose 40 MG; Start 07/06/18 at 06:00 Albuterol (Ventolin Hfa) 2 puff Q4HWA RESP THERAPY INH Last administered on 07/09/18 13:00; Admin Dose 2 PUFF; Start 07/06/18 at 02:31 Lorazepam (Ativan) 0.5 mg HS PRN PO ANXIETY Last administered on 07/08/18 20:51; Admin Dose 0.5 MG; Start 07/06/18 at 03:30 Ondansetron HCl (Zofran Inj) 4 mg Q4H PRN IV NAUSEA AND/OR VOMITING Last admi nistered on 07/09/18at 11:32; Admin Dose 4 MG; Start 07/06/18 at 03:30 Cephalexin (Keflex) 500 mg Q6 PO Last administered on 07/09/18at 11:32; Admin Dose 500 MG; Start 07/06/18 at 12:00 Lorazepam (Ativan) 0.5 mg Q8H PRN PO ANXIETY Last administered on 07/09/18at 05:40; Admin Dose 0.5 MG; Start 07/08/18 at 06:30 Topiramate (Topamax) 25 mg BID PO Last administered on 07/09/18at 08:59; Admin Dose 25 MG; Start 07/08/18 at 09:00 TRU WEIR NP Jul 09, 2018 15:24 CHERRI WATSON Jul 09, 2018 20:58
[2018-07-09] MEDS ORDERED: METOCLOPRAMIDE 10 MG INJ IV ONE (15:30)
[2018-07-09] MEDS ORDERED: ACETAMINOPHEN 325 MG TAB PO PRN ×2 (16:00→17:00)
--- NOTE | 2018-07-09 16:35 | PN ---
Date/Time of Note Date/Time of Note DATE: 07/09/18 TIME: 16:34 Assessment/Plan VTE Prophylaxis Risk score (from Ns)>0 risk: 3 SCD applied (from Ns): Yes Pharmacological prophylaxis: NA/contraindicated Pharm contraindication: thrombocytopenia Lines/Catheters IV [facility]from [facility] Peripheral IV Assessment/Plan Hospital Course Patient spiked fever, tachycardia, has allergy to Tylenol and ibuprofen will continue aspirin continue cooling measures will change antibiotics to IV R ocephin, obtain blood cultures. Assessment/Plan -Chest pain, patient is undergoing cardiology evaluation by Dr. Rodrigues. 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 Plan of care discussed with Dr. Thurman. Result Diagram: 07/07/1862707/07/18627 Exam/Review of Systems Exam Vitals Vital Signs Date Temp Pulse Resp B/P (MAP) Pulse Ox O2 O2 Flow FiO2 Time Delivery Rate 07/09/18 101 16:01 07/09/18 99.5 18 139/78 94 Room Air 15:48 (98) Intake and Output 07/08/18 07/08/18 07/09/18 1515:00 23:00 07:00 IntakeIntake Total 1500 ml 850 ml BalanceBalance 1500 ml 850 ml Constitutional: alert, oriented Head: normocephalic Neck: supple Respiratory: clear to auscultation Cardiovascular: regular rate and rhythm Gastrointestinal: soft, non-tender, other (Left lower quadrant colostomy) Musculoskeletal: nl extremities to inspection Extremities: normal pulses Medications Medication Current Medications Bisacodyl (Dulcolax) 10 mg DAILY PRN PO CONSTIPATION; Start 07/06/18 at 02:30 Docusate Sodium (Colace) 100 mg DAILY PO Last administered on 07/09/18at 08:58; Admin Dose 100 MG; Start 07/06/18 at 09:00 Aspirin (Ecotrin) 325 mg DAILY PO Last administered on 07/09/18at 08:59; Admin Dose 325 MG; Start 07/06/18 at 09:00 Nitroglycerin (Nitroglycerin (Sl Tab) 0.4 Mg) 1 tab Q5M PRN SL ANGINA; Start 07/06/18 at 02:30 Morphine Sulfate (morphine) 2 mg Q4H PRN IV SEVERE PAIN LEVEL 7-10 Last adminis tered on 07/09/18 11:33; Admin Dose 2 MG; Start 07/06/18 at 02:30 Acetaminophen/ Hydrocodone Bitart ([place] (5/325)) 1 tab Q4H PRN PO MODERATE PAIN LEVEL 4-6; Start 07/06/18 at 02:30 Lactulose (Enulose) 10 gm DAILY PRN PO CONSTIPATION; Start 07/06/18 at 02:30 Multivitamins Therapeutic (Theragran) 1 tab DAILY PO Last administered on 07/09/18 08:57; Admin Dose 1 TAB; Start 07/06/18 at 09:00 Pantoprazole (Protonix Tab) 40 mg DAILY@06 PO Last administered on 07/09/18 05:10; Admin Dose 40 MG; Start 07/06/18 at 06:00 Albuterol (Ventolin Hfa) 2 puff Q4HWA RESP THERAPY INH Last administered on 13:00; Admin Dose 2 PUFF; Start 07/06/18 at 02:31 Lorazepam (Ativan) 0.5 mg HS PRN PO ANXIETY Last administered on 07/08/18 20:51; Admin Dose 0.5 MG; Start 07/06/18 at 03:30 Ondansetron HCl (Zofran Inj) 4 mg Q4H PRN IV NAUSEA AND/OR VOMITING Last administered on 07/09/18 11:32; Admin Dose 4 MG; Start 07/06/18 at 03:30 Cephalexin (Keflex) 500 mg Q6 PO Last administered on 07/09/18 11:32; Admin Dose 500 MG; Start 07/06/18 at 12:00 Lorazepam (Ativan) 0.5 mg Q8H PRN PO ANXIETY Last administered on 07/09/18 05:40; Admin Dose 0.5 MG; Start 07/08/18 at 06:30 Topiramate (Topamax) 25 mg BID PO Last administered on 07/09/18 08:59; Admin Dose 25 MG; Start 07/08/18 at 09:00 Ceftriaxone Sodium 50 ml @ 100 mls/hr Q24H IVPB ; Start 07/09/18 at 17:00; Status BRITTANEY HAQ Jul 09, 2018 16:35
[2018-07-09] MEDS: CEFTRIAXONE 1 GM/50 ML (PMX) 50 ML IVPB SCH (17:08)
--- NOTE | 2018-07-09 17:28 | RADRPT ---
Vent Rate: 59 bpm RR Interval: 1020 msec MT Interval: 139 msec QRS Duration: 94 msec QT Interval: 441 msec QTC Interval: 437 msec P-R-T [place]: 5 - 76 - 21 degrees Sinus rhythm... Nonspecific T abnormalities, anterior leads...T <-0.10mV, V2-V4 Electronically Signed By: Ridge Mendoza
[2018-07-10] VITALS (12 sets, daily range): BP systolic 100–124; BP diastolic 58–74; PULSE 74–100; RESP 18–20
[2018-07-10] MEDS: LORAZEPAM 0.5 MG TAB PO PRN ×2 (03:18→23:15)
[2018-07-10] MEDS: PANTOPRAZOLE (EC) 40 MG TAB PO SCH (05:21)
--- NOTE | 2018-07-10 06:23 | PN ---
DATE: 07/09/2018 SUBJECTIVE: The patient was seen by me because of abdominal pain and vomiting. Upper endoscopy show ed gastritis. However, she continues to show evidence of vomiting this morning. On examination, her abdomen is soft. PHYSICAL EXAMINATION: VITAL SIGNS: Normal. She had a spike of temperature up to 99.5. CARDIOVASCULAR: Normal heart sounds. RESPIRATORY: Normal breath sounds. ABDOMEN: Shows soft abdomen with no palpable masses, no tenderness, no distention. DIAGNOSTIC WORKUP: White count is 2800, hemoglobin 12.2. The serum albumin 4.0, amylase 86, lipase 167. CEA is 3.5. CAT scan of the abdomen showed cirrhosis and splenomegaly, no gross abnormality. CLINICAL IMPRESSION: Etiology of the vomiting not clear. PLAN: Obtain upper GI small bowel series. Dictated By: PAULA STARKS MD NC/NTS Conf#: [id number] DID#: [id number] CC: DAVI KAHN MD;*EndCC*
[2018-07-10] MEDS: ASPIRIN (EC) 325 MG TAB PO SCH (08:34)
[2018-07-10] MEDS: MULTIVITAMINS THERAPEUTIC TAB PO SCH (08:34)
[2018-07-10] MEDS: DOCUSATE SODIUM 100 MG CAP PO SCH (08:34)
[2018-07-10] MEDS: TOPIRAMATE 25 MG TAB PO SCH ×2 (08:35→20:58)
[2018-07-10] MEDS: ALBUTEROL HFA 8 GM INHALER INH SCH ×4 (09:15→20:54)
--- NOTE | 2018-07-10 09:46 | CONS ---
Consult Date/Type/Reason Admit Date/Time Jul 07, 2018 at 07:07 Initial Consult Date Requesting Provider: DAVI KAHN MD Date/Time of Note DATE: 07/10/18 TIME: 09:45 Subjective NO acute events - pt stable - low K + - replace now 4- IV x 2 ROS: No fever, no chills, no nausea, no vomiting, no diarrhea/constipation No recent weight changes No chest pain, no PND, no orthopnea No dizziness, blurred vision No thirst, no heat or cold intolerance Objective Vitals Vital Signs Date Temp Pulse Resp B/P (MAP) Pulse Ox O2 O2 Flow FiO2 Time Delivery Rate 07/10/18 82 08:04 07/10/18 99.0 101/59 96 Room Air 07:31 (73) 07/10/18 20 04:06 Intake and Output 07/09/18 07/09/18 07/10/18 1515:00 23:00 07:00 IntakeIntake Total 550 ml OutputOutput Total 3 ml BalanceBalance 550 ml -3 ml Exam General: WN/WD/NAD, AOx 3 HEENT: Unicetric/atraumatic/EOMI ( follow commands) NECK: JVD elevated, no thyromegaly Lymph: no lymphadenopathy HEART: regular with no S3, II/ systolic murmur at apex LUNGS: Coarse sounds ABD: soft, NT, ND, +BS : Intact Neuro: non focal SKIN: chronic changes EXT: trace edema Results/Medications Result Diagram: 07/10/18 0721 07/10/18 0721 Results 24 hrs Laboratory Tests Test 07/10/18 07:21 White Blood Count 2.3 L Red Blood Count 4.69 Hemoglobin 13.1 Hematocrit 39.5 Mean Corpuscular Volume 84.2 Mean Corpuscular Hemoglobin 27.9 L Mean Corpuscular Hemoglobin Concent 33.2 Red Cell Distribution Width 13.5 Platelet Count 40 #L Mean Platelet Volume 11.1 H Immature Granulocytes % 0.400 Neutrophils % Lymphocytes % Monocytes % Eosinophils % Basophils % Nucleated Red Blood Cells % 0.0 Immature Granulocytes # 0.010 Neutrophils # Lymphocytes # Monocytes # Eosinophils # Basophils # Nucleated Red Blood Cells # Sodium Level 135 Potassium Level 2.9 *L Chloride Level 102 Carbon Dioxide Level 23 Anion Gap 10 Blood Urea Nitrogen 13 Creatinine 0.52 Est Glomerular Filtrat Rate mL/min > 60 Glucose Level 149 Calcium Level 8.9 Home Meds Active Scripts Hydrocodone Bit-Acetaminophen (Hydrocodone Bit-APAP) 5-325MG Tablet, 1 TAB PO Q4H PRN for MODERATE PAIN LEVEL 4-6, #20 TAB Prov:BRITTANEY REESE 04/11/18 Reported Medications Bisacodyl* (Dulcolax*) 5 Mg Tablet.dr, 10 MG PO DAILY PRN for CONSTIPATION, TAB 07/06/18 Lactulose* (Lactulose*) 10 Gm/15 Ml Solution, 15 ML PO NEEDED, ML 07/05/18 Nitroglycerin* (Nitrostat*) 0.4 Mg Tab.subl, 0.4 MG SL Q5MIN PRN for CHEST PAIN, BOTTLE 05/28/18 Multivitamins* (Theragran*) 1 Tab Tab, 1 TAB PO DAILY, TAB 05/28/18 Lorazepam* (Lorazepam*) 0.5 Mg Tablet, 0.5 MG PO HS PRN for ANXIETY, TAB 05/28/18 Aspirin Ec (Aspir 81) 81 Mg Tablet.dr, 81 MG PO DAILY, #30 TAB 05/28/18 Albuterol Sulfate* (Ventolin HFA*) 18 Gm Hfa.aer.ad, 2 PUFF INHALATION Q4H, #1 INHALER 05/28/18 Buprenorphine (Butrans) 1 Each Patch.tdwk, 1 EACH TD Q7DAYS 04/09/18 Docusate Sodium* (Colace*) 100 Mg Capsule, 100 MG PO QAM, #30 CAP 04/09/18 Omeprazole* (Omeprazole*) 40 Mg Capsule.dr, 40 MG PO AC BREAKFAST, #30 CAP 04/09/18 Discontinued Reported Medications Lactose-Reduced Food (Boost) 237 Ml Liquid 05/28/18 Discontinued Scripts Hydrocodone/Acetaminophen ([place] 5-325 Tablet) 1 Each Tablet, 1 EACH PO BID, #14 TAB Prov:CAMILO RAMSAY 06/04/18 Medications Current Medications Bisacodyl (Dulcolax) 10 mg DAILY PRN PO CONSTIPATION; Start 07/06/18 at 02:30 Docusate Sodium (Colace) 100 mg DAILY PO Last administered on 07/09/18at 08:58; Admin Dose 100 MG; Start 07/06/18 at 09:00 Aspirin (Ecotrin) 325 mg DAILY PO Last administered on 07/09/18 08:59; Admin Dose 325 MG; Start 07/06/18 at 09:00 Nitroglycerin (Nitroglycerin (Sl Tab) 0.4 Mg) 1 tab Q5M PRN SL ANGINA; Start 07/06/18 at 02:30 Morphine Sulfate (morphine) 2 mg Q4H PRN IV SEVERE PAIN LEVEL 7-10 Last administered on 07/09/18 11:33; Admin Dose 2 MG; Start 07/06/18 at 02:30 Acetaminophen/ Hydrocodone Bitart ([place] (5/325)) 1 tab Q4H PRN PO MODERATE PAIN LEVEL 4-6; Start 07/06/18 at 02:30 Lactulose (Enulose) 10 gm DAILY PRN PO CONSTIPATION; Start 07/06/18 at 02:30 Multivitamins Therapeutic (Theragran) 1 tab DAILY PO Last administered on 07/09/18 08:57; Admin Dose 1 TAB; Start 07/06/18 at 09:00 Pantoprazole (Protonix Tab) 40 mg DAILY@06 PO Last administered on 07/10/18 05:21; Admin Dose 40 MG; Start 07/06/18 at 06:00 Albuterol (Ventolin Hfa) 2 puff Q4HWA RESP THERAPY INH Last administered on 07/10/18 09:15; Admin Dose 2 PUFF; Start 07/06/18 at 02:31 Lorazepam (Ativan) 0.5 mg HS PRN PO ANXIETY Last administered on 07/08/18 20:51; Admin Dose 0.5 MG; Start 07/06/18 at 03:30 Ondansetron HCl (Zofran Inj) 4 mg Q4H PRN IV NAUSEA AND/OR VOMITING Last administered on 07/09/18 11:32; Admin Dose 4 MG; Start 07/06/18 at 03:30 Lorazepam (Ativan) 0.5 mg Q8H PRN PO ANXIETY Last administered on 07/10/18 03:18; Admin Dose 0.5 MG; Start 07/08/18 at 06:30 Topiramate (Topamax) 25 mg BID PO Last administered on 07/09/18 20:27; Admin Dose 25 MG; Start 07/08/18 at 09:00 Ceftriaxone Sodium 50 ml @ 100 mls/hr Q24H IVPB Last administered on 07/09/18at 17:08; Admin Dose 100 MLS/HR; Start 07/09/18 at 17:00 Acetaminophen (Tylenol Tab) 325 mg Q6H PRN PO FEVER; Start 07/09/18 at 17:00 Potassium Chloride 100 ml @ 50 mls/hr Q2H IVPB ; Start 07/10/18 at 10:00; Stop 07/10/18 at 13:59; Status UNV Assessment/Plan Hospital Course (Demo Recall) 1. Chest pain, assess for acute coronary syndrome with negative troponins x3 and recently negative cardiac stress test on 05/2018, EF of 50% - r/o OK. NO intervention planned. Med rx now. 2. History of cardiomyopathy with mildly depressed left ventricular ejection by echo 45% to 50% and by stress at the same twila - not in chf by exam now. IMproved EF - no indictaion for ICD. 3. History of PTCA and stent placement per patient in 2011. The patient also discussed me that she is unsure she has ever had a stent, although she states she has had one and states she is under a lot of anxiety and stress during that time. 4. History of colon carcinoma, status post colectomy with colostomy- GI follows. 5. Dyspnea on exertion and shortness of breath- improved. Much better - negative tress test. 6. History of asthma per patient. 7. Chronic constipation. 8. Thrombocytopenia. 9. History of hepatitis C and cirrhosis. 10. POST EGD - tolerated well. GI follows. 11. Low K+ - replaced now. PANFILO RAMIREZ MD Jul 10, 2018 09:46
[2018-07-10] MEDS: POTASSIUM CHLORIDE 100 ML IVPB SCH ×3 (10:35→22:30)
[2018-07-10] MEDS: morphine 2 MG INJ IV PRN ×3 (10:59→20:46)
[2018-07-10] MEDS ORDERED: IOHEXOL 300MG/ML 150 ML BTL ONE (14:02)
--- NOTE | 2018-07-10 15:54 | CONS ---
Assessment/Plan Assessment/Plan Assessment/Plan (Recall) 57 yo F with hx of metastatic colon CA and other comorbidities who presents for evaluation of chest pain, dizziness, and other sx. UA + She was additionally noted to have a recurrent and severe headache... for which neurology is consulted. The clinical picture is most consistent with recurrent migraine. A focal [employer] process is unlikely MRI brain is reassuringly without acute intracranial pathology. Of note, a recent CSF evaluation was reassuringly negative P: Cont Topamax for migraine ppx for now Other medical management and supportive care per primary Will follow clinically Consultation Date/Type/Reason Admit Date/Time Jul 07, 2018 at 07:07 Type of Consult Neurology Reason for Consultation headache Requesting Provider: DAVI KAHN MD Date/Time of Note DATE: 07/10/18 TIME: 15:54 24 HR Interval Summary Free Text/Dictation Continues acute care. Exam/Review of Systems Exam Vitals Vital Signs Date Temp Pulse Resp B/P (MAP) Pulse Ox O2 O2 Flow FiO2 Time Delivery Rate 07/10/18 83 12:40 07/10/18 98.6 18 107/62 97 Room Air 11:40 (77) Intake and Output 07/09/18 07/09/18 07/10/18 1515:00 23:00 07:00 IntakeIntake Total 550 ml OutputOutput Total 3 ml BalanceBalance 550 ml -3 ml Exam PE: Gen Appearance: Grimacing HEENT: Normocephalic Cardiovascular: Regular rate Lungs: Clear bilaterally Abdomen: Soft Extremities: Dry NE: The patient was alert and oriented. Language was normal. Fund of knowledge was normal. Pupils were equal and reactive to light. There was no afferent pupillary defect. Visual lipscomb were normal. Funduscopic examination was limited. Extra-ocular movements were full. Ptosis was absent. There was no nystagmus. Facial sensation was normal. Face was symmetric with normal strength. Hearing was intact. Palate movements were normal. Neck strength was normal. There was normal tongue bulk and speed of movement. Tone was normal. Muscle bulk was normal. I did not see fasciculations. Arms and legs were strong. Vibration sensation was normal. Temperature and pinprick sensation was normal. Rapid alternating movements were normal. There was no dysmetria. There was no intention tremor. Gait was deferred due to bedrest. Arm and leg reflexes were 2+ and symmetric. Carroll's sign was absent. Plantar responses were flexor. Results Result Diagram: 07/10/18 0721 07/10/18 0721 Results 24hrs Laboratory Tests Test 07/10/18 07:21 White Blood Count 2.3 L Red Blood Count 4.69 Hemoglobin 13.1 Hematocrit 39.5 Mean Corpuscular Volume 84.2 Mean Corpuscular Hemoglobin 27.9 L Mean Corpuscular Hemoglobin Concent 33.2 Red Cell Distribution Width 13.5 Platelet Count 40 #L Mean Platelet Volume 11.1 H Immature Granulocytes % 0.400 Neutrophils % Segmented Neutrophils % (Manual) 66 Band Neutrophils % (Manual) 21 H Lymphocytes % Lymphocytes % (Manual) 3 L Reactive Lymphocytes % (Manual) 2 H Monocytes % Monocytes % (Manual) 7 Eosinophils % Eosinophils % (Manual) 1 Basophils % Nucleated Red Blood Cells % 0.0 Immature Granulocytes # 0.010 Neutrophils # Neutrophils # (Manual) 1.5 L Band Neutrophils # 0.4 Lymphocytes (Manual) 0.0 L Lymphocytes # Reactive Lymphocytes # 0.0 Monocytes # Monocytes # (Manual) 0.1 L Eosinophils # Basophils # Nucleated Red Blood Cells # Platelet Estimate SIG DECREASED Polychromasia 3+ Poikilocytosis 1+ Anisocytosis 1+ Microcytosis 1+ Sodium Level 135 Potassium Level 2.9 *L Chloride Level 102 Carbon Dioxide Level 23 Anion Gap 10 Blood Urea Nitrogen 13 Creatinine 0.52 Est Glomerular Filtrat Rate mL/min > 60 Glucose Level 149 Calcium Level 8.9 Medications Medication Current Medications Bisacodyl (Dulcolax) 10 mg DAILY PRN PO CONSTIPATION; Start 07/06/18 at 02:30 Docusate Sodium (Colace) 100 mg DAILY PO Last administered on 07/09/18at 08:58; Admin Dose 100 MG; Start 07/06/18 at 09:00 Aspirin (Ecotrin) 325 mg DAILY PO Last administered on 07/09/18at 08:59; Admin Dose 325 MG; Start 07/06/18 at 09:00 Nitroglycerin (Nitroglycerin (Sl Tab) 0.4 Mg) 1 tab Q5M PRN SL ANGINA; Start 07/06/18 at 02:30 Morphine Sulfate (morphine) 2 mg Q4H PRN IV SEVERE PAIN LEVEL 7-10 Last administered on 07/10/18at 10:59; Admin Dose 2 MG; Start 07/06/18 at 02:30 Acetaminophen/ Hydrocodone Bitart ([place] (5/325)) 1 tab Q4H PRN PO MODERATE PAIN LEVEL 4-6; Start 07/06/18 at 02:30 Lactulose (Enulose) 10 gm DAILY PRN PO CONSTIPATION; Start 07/06/18 at 02:30 Multivitamins Therapeutic (Theragran) 1 tab DAILY PO Last administered on 07/09/18 08:57; Admin Dose 1 TAB; Start 07/06/18 at 09:00 Pantoprazole (Protonix Tab) 40 mg DAILY@06 PO Last administered on 07/10/18 05:21; Admin Dose 40 MG; Start 07/06/18 at 06:00 Albuterol (Ventolin Hfa) 2 puff Q4HWA RESP THERAPY INH Last administered on 07/10/18 09:15; Admin Dose 2 PUFF; Start 07/06/18 at 02:31 Lorazepam (Ativan) 0.5 mg HS PRN PO ANXIETY Last administered on 07/08/18 20:51; Admin Dose 0.5 MG; Start 07/06/18 at 03:30 Ondansetron HCl (Zofran Inj) 4 mg Q4H PRN IV NAUSEA AND/OR VOMITING Last admi nistered on 07/09/18 11:32; Admin Dose 4 MG; Start 07/06/18 at 03:30 Lorazepam (Ativan) 0.5 mg Q8H PRN PO ANXIETY Last administered on 07/10/18 03:18; Admin Dose 0.5 MG; Start 07/08/18 at 06:30 Topiramate (Topamax) 25 mg BID PO Last administered on 07/09/18 20:27; Admin Dose 25 MG; Start 07/08/18 at 09:00 Ceftriaxone Sodium 50 ml @ 100 mls/hr Q24H IVPB Last administered on 07/09/18 17:08; Admin Dose 100 MLS/HR; Start 07/09/18 at 17:00 Acetaminophen (Tylenol Tab) 325 mg Q6H PRN PO FEVER; Start 07/09/18 at 17:00 Potassium Chloride 100 ml @ 50 mls/hr Q6H IVPB Last administered on 07/10/18 10:35; Admin Dose 50 MLS/HR; Start 07/10/18 at 10:00; Stop 07/10/18 at 17:59 TRU WEIR NP Jul 10, 2018 15:54
[2018-07-10] MEDS: CEFTRIAXONE 1 GM/50 ML (PMX) 50 ML IVPB SCH (17:06)
--- NOTE | 2018-07-10 19:07 | PN ---
Date/Time of Note Date/Time of Note DATE: 07/10/18 TIME: 19:06 Assessment/Plan VTE Prophylaxis Risk score (from Ns)>0 risk: 1 SCD applied (from Ns): Yes Pharmacological prophylaxis: NA/contraindicated Pharm contraindication: thrombocytopenia Lines/Catheters IV Catheter Type (from [facility]): [place] Assessment/Plan Hospital Course K replacement is ordered for K of 2.9, repeat K Level, pt is s/p upeer GI study, no fever. Assessment/Plan -Chest pain, patient is undergoing cardiology evaluation by Dr. Rodrigues. -Abd pain, N/V. Dr Johnson is following in GI consultation. 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 Plan of care discussed with Dr. Thurman. Result Diagram: 07/10/18 0721 07/10/18 0721 Results 24hrs Laboratory Tests Test 07/10/18 07:21 White Blood Count 2.3 L Red Blood Count 4.69 Hemoglobin 13.1 Hematocrit 39.5 Mean Corpuscular Volume 84.2 Mean Corpuscular Hemoglobin 27.9 L Mean Corpuscular Hemoglobin Concent 33.2 Red Cell Distribution Width 13.5 Platelet Count 40 #L Mean Platelet Volume 11.1 H Immature Granulocytes % 0.400 Neutrophils % Segmented Neutrophils % (Manual) 66 Band Neutrophils % (Manual) 21 H Lymphocytes % Lymphocytes % (Manual) 3 L Reactive Lymphocytes % (Manual) 2 H Monocytes % Monocytes % (Manual) 7 Eosinophils % Eosinophils % (Manual) 1 Basophils % Nucleated Red Blood Cells % 0.0 Immature Granulocytes # 0.010 Neutrophils # Neutrophils # (Manual) 1.5 L Band Neutrophils # 0.4 Lymphocytes (Manual) 0.0 L Lymphocytes # Reactive Lymphocytes # 0.0 Monocytes # Monocytes # (Manual) 0.1 L Eosinophils # Basophils # Nucleated Red Blood Cells # Platelet Estimate SIG DECREASED Polychromasia 3+ Poikilocytosis 1+ Anisocytosis 1+ Microcytosis 1+ Sodium Level 135 Potassium Level 2.9 *L Chloride Level 102 Carbon Dioxide Level 23 Anion Gap 10 Blood Urea Nitrogen 13 Creatinine 0.52 Est Glomerular Filtrat Rate mL/min > 60 Glucose Level 149 Calcium Level 8.9 Exam/Review of Systems Exam Vitals Vital Signs Date Temp Pulse Resp B/P (MAP) Pulse Ox O2 O2 Flow FiO2 Time Delivery Rate 07/10/18 86 16:31 07/10/18 98.3 18 100/67 96 Room Air 16:17 (78) Intake and Output 07/09/18 07/09/18 07/10/18 1515:00 23:00 07:00 IntakeIntake Total 550 ml OutputOutput Total 3 ml BalanceBalance 550 ml -3 ml Exam Constitutional: alert, oriented Head: normocephalic Neck: supple Respiratory: clear to auscultation Cardiovascular: regular rate and rhythm Gastrointestinal: soft, non-tender, other (Left lower quadrant colostomy) Musculoskeletal: nl extremities to inspection Extremities: normal pulses Results Results 24hrs Laboratory Tests Test 07/10/18 07:21 White Blood Count 2.3 L Red Blood Count 4.69 Hemoglobin 13.1 Hematocrit 39.5 Mean Corpuscular Volume 84.2 Mean Corpuscular Hemoglobin 27.9 L Mean Corpuscular Hemoglobin Concent 33.2 Red Cell Distribution Width 13.5 Platelet Count 40 #L Mean Platelet Volume 11.1 H Immature Granulocytes % 0.400 Neutrophils % Segmented Neutrophils % (Manual) 66 Band Neutrophils % (Manual) 21 H Lymphocytes % Lymphocytes % (Manual) 3 L Reactive Lymphocytes % (Manual) 2 H Monocytes % Monocytes % (Manual) 7 Eosinophils % Eosinophils % (Manual) 1 Basophils % Nucleated Red Blood Cells % 0.0 Immature Granulocytes # 0.010 Neutrophils # Neutrophils # (Manual) 1.5 L Band Neutrophils # 0.4 Lymphocytes (Manual) 0.0 L Lymphocytes # Reactive Lymphocytes # 0.0 Monocytes # Monocytes # (Manual) 0.1 L Eosinophils # Basophils # Nucleated Red Blood Cells # Platelet Estimate SIG DECREASED Polychromasia 3+ Poikilocytosis 1+ Anisocytosis 1+ Microcytosis 1+ Sodium Level 135 Potassium Level 2.9 *L Chloride Level 102 Carbon Dioxide Level 23 Anion Gap 10 Blood Urea Nitrogen 13 Creatinine 0.52 Est Glomerular Filtrat Rate mL/min > 60 Glucose Level 149 Calcium Level 8.9 Medications Medication Current Medications Bisacodyl (Dulcolax) 10 mg DAILY PRN PO CONSTIPATION; Start 07/06/18 at 02:30 Docusate Sodium (Colace) 100 mg DAILY PO Last administered on 6/3/19at 08:58; Admin Dose 100 MG; Start 07/06/18 at 09:00 Aspirin (Ecotrin) 325 mg DAILY PO Last administered on 07/09/18 08:59; Admin Dose 325 MG; Start 07/06/18 at 09:00 Nitroglycerin (Nitroglycerin (Sl Tab) 0.4 Mg) 1 tab Q5M PRN SL ANGINA; Start 07/06/18 at 02:30 Morphine Sulfate (morphine) 2 mg Q4H PRN IV SEVERE PAIN LEVEL 7-10 Last administered on 07/10/18 16:14; Admin Dose 2 MG; Start 07/06/18 at 02:30 Acetaminophen/ Hydrocodone Bitart ([place] (5/325)) 1 tab Q4H PRN PO MODERATE PAIN LEVEL 4-6; Start 07/06/18 at 02:30 Lactulose (Enulose) 10 gm DAILY PRN PO CONSTIPATION; Start 07/06/18 at 02:30 Multivitamins Therapeutic (Theragran) 1 tab DAILY PO Last administered on 07/09/18 08:57; Admin Dose 1 TAB; Start 07/06/18 at 09:00 Pantoprazole (Protonix Tab) 40 mg DAILY@06 PO Last administered on 07/10/18 05:21; Admin Dose 40 MG; Start 07/06/18 at 06:00 Albuterol (Ventolin Hfa) 2 puff Q4HWA RESP THERAPY INH Last administered on 07/10/18 17:07; Admin Dose 2 PUFF; Start 07/06/18 at 02:31 Lorazepam (Ativan) 0.5 mg HS PRN PO ANXIETY Last administered on 07/08/18 20:51; Admin Dose 0.5 MG; Start 07/06/18 at 03:30 Ondansetron HCl (Zofran Inj) 4 mg Q4H PRN IV NAUSEA AND/OR VOMITING Last administered on 07/09/18 11:32; Admin Dose 4 MG; Start 07/06/18 at 03:30 Lorazepam (Ativan) 0.5 mg Q8H PRN PO ANXIETY Last administered on 07/10/18 03:18; Admin Dose 0.5 MG; Start 07/08/18 at 06:30 Topiramate (Topamax) 25 mg BID PO Last administered on 6/3/19at 20:27; Admin Dose 25 MG; Start 07/08/18 at 09:00 Ceftriaxone Sodium 50 ml @ 100 mls/hr Q24H IVPB Last administered on 07/10/18at 17:06; Admin Dose 100 MLS/HR; Start 07/09/18 at 17:00 Acetaminophen (Tylenol Tab) 325 mg Q6H PRN PO FEVER; Start 07/09/18 at 17:00 Potassium Chloride 100 ml @ 50 mls/hr Q2H IVPB ; Start 07/10/18 at 21:00; Stop 07/11/18 at 00:59 BRITTANEY REESE Jul 10, 2018 19:07
[2018-07-11] VITALS (12 sets, daily range): BP systolic 100–133; BP diastolic 61–85; PULSE 68–87; RESP 16–18
[2018-07-11] MEDS: POTASSIUM CHLORIDE 100 ML IVPB SCH (02:04)
[2018-07-11] MEDS: morphine 2 MG INJ IV PRN ×4 (03:08→20:31)
[2018-07-11] MEDS: PANTOPRAZOLE (EC) 40 MG TAB PO SCH (05:54)
[2018-07-11] MEDS: DOCUSATE SODIUM 100 MG CAP PO SCH (08:54)
[2018-07-11] MEDS: TOPIRAMATE 25 MG TAB PO SCH ×2 (08:54→20:40)
[2018-07-11] MEDS: ASPIRIN (EC) 325 MG TAB PO SCH (08:54)
[2018-07-11] MEDS: MULTIVITAMINS THERAPEUTIC TAB PO SCH (08:54)
[2018-07-11] MEDS: ALBUTEROL HFA 8 GM INHALER INH SCH ×4 (08:57→21:00)
--- NOTE | 2018-07-11 14:40 | CONS ---
Assessment/Plan Assessment/Plan Hospital Course (Demo Recall) IMPRESSION: 1. Chest pain, assess for acute coronary syndrome with negative troponins x3 and recently negative cardiac stress test on 05/2018, EF of 50%. Now resolved 2. History of cardiomyopathy with mildly depressed left ventricular ejection by echo 45% to 50% and by stress at the same time. 3. History of PTCA and stent placement per patient in 2011. The patient also discussed me that she is unsure she has ever had a stent, although she states she has had one and states she is under a lot of anxiety and stress during that time. 4. History of colon carcinoma, status post colectomy with colostomy. 5. Dyspnea on exertion and shortness of breath. 6. History of asthma per patient. 7. Chronic constipation. 8. Thrombocytopenia. 9. History of hepatitis C and cirrhosis. 10. FRANCO-improved 11.N/V Recc: -Tele -serial ecg's -Continue asa -Contineu abx's and f/u cx data -Continue topamax -PRN SL NTG for recurrent chest pain Consultation Date/Type/Reason Admit Date/Time Jul 07, 2018 at 07:07 Initial Consult Date 07/08/18 Type of Consult Cardiology Reason for Consultation chest pain Requesting Provider: DAVI KAHN MD Date/Time of Note DATE: 07/11/18 TIME: 14:38 Exam/Review of Systems Vital Signs Vitals Vital Signs Date Temp Pulse Resp B/P (MAP) Pulse Ox O2 O2 Flow FiO2 Time Delivery Rate 07/11/18 81 12:10 07/11/18 97.9 16 125/67 92 11:01 (86) 07/11/18 Room Air 04:14 Intake and Output 07/10/18 07/10/18 07/11/18 1515:00 23:00 07:00 IntakeIntake Total 450 ml 200 ml BalanceBalance 450 ml 200 ml Exam Exam Review of Systems: CONSTITUTIONAL: No fevers, chills. PULMONARY: No sob CARDIOVASCULAR: No chest pain/palpitations GASTROINTESTINAL: No nausea/vomiting. GENITOURINARY: No hematuria/dysuria. MUSCULOSKELETAL: No myagias/arthalgias. PSYCHIATRIC: The patient denies depression. NEUROLOGIC: No weakness Constitutional: alert, oriented Psych: no complaints Head: normocephalic ENMT: mucosa pink and moist Neck: supple, jvd (9 cm water) Respiratory: diminished breath sounds (at bases/B) Cardiovascular: regular rate and rhythm Gastrointestinal: soft, non-tender Musculoskeletal: muscle tone (normal) Extremities: edema (none) Neurological: other (No focal deficits) Labs Result Diagram: 07/10/1872007/10/18720 Medications Medications Current Medications Bisacodyl (Dulcolax) 10 mg DAILY PRN PO CONSTIPATION; Start 07/06/18 at 02:30 Docusate Sodium (Colace) 100 mg DAILY PO Last administered on 07/09/18 08:58; Admin Dose 100 MG; Start 07/06/18 at 09:00 Aspirin (Ecotrin) 325 mg DAILY PO Last administered on 07/11/18 08:54; Admin Dose 325 MG; Start 07/06/18 at 09:00 Nitroglycerin (Nitroglycerin (Sl Tab) 0.4 Mg) 1 tab Q5M PRN SL ANGINA; Start 07/06/18 at 02:30 Morphine Sulfate (morphine) 2 mg Q4H PRN IV SEVERE PAIN LEVEL 7-10 Last administered on 07/11/18 13:14; Admin Dose 2 MG; Start 07/06/18 at 02:30 Acetaminophen/ Hydrocodone Bitart ([place] (5/325)) 1 tab Q4H PRN PO MODERATE PAIN LEVEL 4-6; Start 07/06/18 at 02:30 Lactulose (Enulose) 10 gm DAILY PRN PO CONSTIPATION; Start 07/06/18 at 02:30 Multivitamins Therapeutic (Theragran) 1 tab DAILY PO Last administered on 07/11/18at 08:54; Admin Dose 1 TAB; Start 07/06/18 at 09:00 Pantoprazole (Protonix Tab) 40 mg DAILY@06 PO Last administered on 07/11/18 05:54; Admin Dose 40 MG; Start 07/06/18 at 06:00 Albuterol (Ventolin Hfa) 2 puff Q4HWA RESP THERAPY INH Last administered on 07/10/18 17:07; Admin Dose 2 PUFF; Start 07/06/18 at 02:31 Lorazepam (Ativan) 0.5 mg HS PRN PO ANXIETY Last administered on 07/08/18 20:51; Admin Dose 0.5 MG; Start 07/06/18 at 03:30 Ondansetron HCl (Zofran Inj) 4 mg Q4H PRN IV NAUSEA AND/OR VOMITING Last administered on 07/09/18 11:32; Admin Dose 4 MG; Start 07/06/18 at 03:30 Lorazepam (Ativan) 0.5 mg Q8H PRN PO ANXIETY Last administered on 07/10/18 23:15; Admin Dose 0.5 MG; Start 07/08/18 at 06:30 Topiramate (Topamax) 25 mg BID PO Last administered on 07/11/18 08:54; Admin Dose 25 MG; Start 07/08/18 at 09:00 Ceftriaxone Sodium 50 ml @ 100 mls/hr Q24H IVPB Last administered on 07/10/18 17:06; Admin Dose 100 MLS/HR; Start 07/09/18 at 17:00 Acetaminophen (Tylenol Tab) 325 mg Q6H PRN PO FEVER; Start 07/09/18 at 17:00 RAVINDER DYER Jul 11, 2018 14:40
--- NOTE | 2018-07-11 15:08 | CONS ---
Assessment/Plan Assessment/Plan Assessment/Plan (Recall) 57 yo F with hx of metastatic colon CA and other comorbidities who presents for evaluation of chest pain, dizziness, and other sx. UA + She was additionally noted to have a recurrent and severe headache... for which neurology is consulted. The clinical picture is most consistent with recurrent migraine. A focal GAS TORCH BRAZIER process is unlikely MRI brain is reassuringly without acute intracranial pathology. Of note, a recent CSF evaluation was reassuringly negative P: Cont Topamax for migraine ppx for now Other medical management and supportive care per primary Will follow clinically Consultation Date/Type/Reason Admit Date/Time Jul 07, 2018 at 07:07 Type of Consult Neurology Reason for Consultation headache Requesting Provider: DAVI KAHN MD Date/Time of Note DATE: 07/11/18 TIME: 15:08 24 HR Interval Summary Free Text/Dictation Continues acute care. Exam/Review of Systems Exam Vitals Vital Signs Date Temp Pulse Resp B/P (MAP) Pulse Ox O2 O2 Flow FiO2 Time Delivery Rate 07/11/18 81 12:10 07/11/18 97.9 16 125/67 92 11:01 (86) 07/11/18 Room Air 04:14 Intake and Output 07/10/18 07/10/18 07/11/18 1515:00 23:00 07:00 IntakeIntake Total 450 ml 200 ml BalanceBalance 450 ml 200 ml Exam PE: Gen Appearance: Grimacing HEENT: Normocephalic Cardiovascular: Regular rate Lungs: Clear bilaterally Abdomen: Soft Extremities: Dry NE: The patient was alert and oriented. Language was normal. Fund of knowledge was normal. Pupils were equal and reactive to light. There was no afferent pupillary defect. Visual lipscomb were normal. Funduscopic examination was limited. Extra-ocular movements were full. Ptosis was absent. There was no nystagmus. Facial sensation was normal. Face was symmetric with normal strength. Hearing was intact. Palate movements were normal. Neck strength was normal. There was normal tongue bulk and speed of movement. Tone was normal. Muscle bulk was normal. I did not see fasciculations. Arms and legs were strong. Vibration sensation was normal. Temperature and pinprick sensation was normal. Rapid alternating movements were normal. There was no dysmetria. There was no intention tremor. Gait was deferred due to bedrest. Arm and leg reflexes were 2+ and symmetric. Carroll's sign was absent. Plantar responses were flexor. Results Result Diagram: 07/10/1872007/10/18720 Medications Medication Current Medications Bisacodyl (Dulcolax) 10 mg DAILY PRN PO CONSTIPATION; Start 07/06/18 at 02:30 Docusate Sodium (Colace) 100 mg DAILY PO Last administered on 07/09/18 08:58; Admin Dose 100 MG; Start 07/06/18 at 09:00 Aspirin (Ecotrin) 325 mg DAILY PO Last administered on 07/11/18 08:54; Admin Dose 325 MG; Start 07/06/18 at 09:00 Nitroglycerin (Nitroglycerin (Sl Tab) 0.4 Mg) 1 tab Q5M PRN SL ANGINA; Start 07/06/18 at 02:30 Morphine Sulfate (morphine) 2 mg Q4H PRN IV SEVERE PAIN LEVEL 7-10 Last administered on 07/11/18 13:14; Admin Dose 2 MG; Start 07/06/18 at 02:30 Acetaminophen/ Hydrocodone Bitart ([place] (5/325)) 1 tab Q4H PRN PO MODERATE PAIN LEVEL 4-6; Start 07/06/18 at 02:30 Lactulose (Enulose) 10 gm DAILY PRN PO CONSTIPATION; Start 07/06/18 at 02:30 Multivitamins Therapeutic (Theragran) 1 tab DAILY PO Last administered on 07/11/18at 08:54; Admin Dose 1 TAB; Start 07/06/18 at 09:00 Pantoprazole (Protonix Tab) 40 mg DAILY@06 PO Last administered on 07/11/18 05:54; Admin Dose 40 MG; Start 07/06/18 at 06:00 Albuterol (Ventolin Hfa) 2 puff Q4HWA RESP THERAPY INH Last administered on 07/10/18 17:07; Admin Dose 2 PUFF; Start 07/06/18 at 02:31 Lorazepam (Ativan) 0.5 mg HS PRN PO ANXIETY Last administered on 07/08/18 20:51; Admin Dose 0.5 MG; Start 07/06/18 at 03:30 Ondansetron HCl (Zofran Inj) 4 mg Q4H PRN IV NAUSEA AND/OR VOMITING Last administered on 07/09/18 11:32; Admin Dose 4 MG; Start 07/06/18 at 03:30 Lorazepam (Ativan) 0.5 mg Q8H PRN PO ANXIETY Last administered on 07/10/18 23:15; Admin Dose 0.5 MG; Start 07/08/18 at 06:30 Topiramate (Topamax) 25 mg BID PO Last administered on 07/11/18 08:54; Admin Dose 25 MG; Start 07/08/18 at 09:00 Ceftriaxone Sodium 50 ml @ 100 mls/hr Q24H IVPB Last administered on 07/10/18 17:06; Admin Dose 100 MLS/HR; Start 07/09/18 at 17:00 Acetaminophen (Tylenol Tab) 325 mg Q6H PRN PO FEVER; Start 07/09/18 at 17:00 TRU WEIR NP Jul 11, 2018 15:08
[2018-07-11] MEDS: CEFTRIAXONE 1 GM/50 ML (PMX) 50 ML IVPB SCH (17:06)
--- NOTE | 2018-07-11 19:08 | PN ---
Date/Time of Note Date/Time of Note DATE: 07/11/18 TIME: 19:02 Assessment/Plan VTE Prophylaxis Risk score (from Ns)>0 risk: 1 SCD applied (from Ns): Yes Pharmacological prophylaxis: NA/contraindicated Pharm contraindication: thrombocytopenia Lines/Catheters IV C[facility]ter Type (from [facility]): Saline Lock Assessment/Plan Hospital Course Patient is awake alert denies any fever, able to tolerate diet without nausea and vomiting, denies any chest pain. Assessment/Plan -Chest pain, negative troponins x3 and recently negative cardiac stress test on 05/2018, EF of 50%. Now resolved. Dr. Rodrigues is following in cardiology consultation. -Abd pain, N/V. Dr Johnson is following in GI consultation. -Proteus M UTI, continue Rocephin -Liver cirrhosis secondary to hepatitis C -Thrombocytopenia -History of colon carcinoma, status post colectomy with colostomy. 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 Plan of care discussed with Dr. Thurman. Result Diagram: 07/11/18 1659 07/11/18 1659 Results 24hrs Laboratory Tests Test 07/11/18 16:59 White Blood Count 2.6 L Red Blood Count 4.93 Hemoglobin 13.9 Hematocrit 42.0 Mean Corpuscular Volume 85.2 Mean Corpuscular Hemoglobin 28.2 L Mean Corpuscular Hemoglobin Concent 33.1 Red Cell Distribution Width 13.6 Platelet Count 60 #L Mean Platelet Volume 10.9 H Immature Granulocytes % 0.000 L Neutrophils % Segmented Neutrophils % (Manual) 63 Band Neutrophils % (Manual) 1 Lymphocytes % Lymphocytes % (Manual) 16 Reactive Lymphocytes % (Manual) 4 H Monocytes % Monocytes % (Manual) 8 Eosinophils % Eosinophils % (Manual) 7 Basophils % Nucleated Red Blood Cells % 0.0 Immature Granulocytes # 0.000 Neutrophils # Neutrophils # (Manual) 1.6 Band Neutrophils # 0.0 Lymphocytes (Manual) 0.4 L Lymphocytes # Reactive Lymphocytes # 0.1 H Monocytes # Monocytes # (Manual) 0.2 L Eosinophils # Basophils # Nucleated Red Blood Cells # Giant Platelets 2 H Sodium Level 139 Potassium Level 3.9 Chloride Level 107 Carbon Dioxide Level 23 Anion Gap 9 Blood Urea Nitrogen 15 Creatinine 0.58 Est Glomerular Filtrat Rate mL/min > 60 Glucose Level 113 Calcium Level 8.9 Exam/Review of Systems Exam Vitals Vital Signs Date Temp Pulse Resp B/P (MAP) Pulse Ox O2 O2 Flow FiO2 Time Delivery Rate 07/11/18 82 16:07 07/11/18 97.8 16 125/64 96 15:00 (84) 07/11/18 Room Air 04:14 Intake and Output 07/10/18 07/10/18 07/11/18 1515:00 23:00 07:00 IntakeIntake Total 450 ml 200 ml BalanceBalance 450 ml 200 ml Exam Constitutional: alert, oriented Respiratory: clear to auscultation Cardiovascular: regular rate and rhythm Gastrointestinal: soft, non-tender, other (Left lower quadrant colostomy) Musculoskeletal: nl extremities to inspection Extremities: normal pulses Results Results 24hrs Laboratory Tests Test 07/11/18 16:59 White Blood Count 2.6 L Red Blood Count 4.93 Hemoglobin 13.9 Hematocrit 42.0 Mean Corpuscular Volume 85.2 Mean Corpuscular Hemoglobin 28.2 L Mean Corpuscular Hemoglobin Concent 33.1 Red Cell Distribution Width 13.6 Platelet Count 60 #L Mean Platelet Volume 10.9 H Immature Granulocytes % 0.000 L Neutrophils % Segmented Neutrophils % (Manual) 63 Band Neutrophils % (Manual) 1 Lymphocytes % Lymphocytes % (Manual) 16 Reactive Lymphocytes % (Manual) 4 H Monocytes % Monocytes % (Manual) 8 Eosinophils % Eosinophils % (Manual) 7 Basophils % Nucleated Red Blood Cells % 0.0 Immature Granulocytes # 0.000 Neutrophils # Neutrophils # (Manual) 1.6 Band Neutrophils # 0.0 Lymphocytes (Manual) 0.4 L Lymphocytes # Reactive Lymphocytes # 0.1 H Monocytes # Monocytes # (Manual) 0.2 L Eosinophils # Basophils # Nucleated Red Blood Cells # Giant Platelets 2 H Sodium Level 139 Potassium Level 3.9 Chloride Level 107 Carbon Dioxide Level 23 Anion Gap 9 Blood Urea Nitrogen 15 Creatinine 0.58 Est Glomerular Filtrat Rate mL/min > 60 Glucose Level 113 Calcium Level 8.9 Medications Medication Current Medications Bisacodyl (Dulcolax) 10 mg DAILY PRN PO CONSTIPATION; Start 07/06/18 at 02:30 Docusate Sodium (Colace) 100 mg DAILY PO Last administered on 07/09/18at 08:58; Admin Dose 100 MG; Start 07/06/18 at 09:00 Aspirin (Ecotrin) 325 mg DAILY PO Last administered on 07/11/18 08:54; Admin Dose 325 MG; Start 07/06/18 at 09:00 Nitroglycerin (Nitroglycerin (Sl Tab) 0.4 Mg) 1 tab Q5M PRN SL ANGINA; Start 07/06/18 at 02:30 Morphine Sulfate (morphine) 2 mg Q4H PRN IV SEVERE PAIN LEVEL 7-10 Last administered on 07/11/18 13:14; Admin Dose 2 MG; Start 07/06/18 at 02:30 Acetaminophen/ Hydrocodone Bitart ([place] (5/325)) 1 tab Q4H PRN PO MODERATE PAIN LEVEL 4-6; Start 07/06/18 at 02:30 Lactulose (Enulose) 10 gm DAILY PRN PO CONSTIPATION; Start 07/06/18 at 02:30 Multivitamins Therapeutic (Theragran) 1 tab DAILY PO Last administered on 07/11/18 08:54; Admin Dose 1 TAB; Start 07/06/18 at 09:00 Pantoprazole (Protonix Tab) 40 mg DAILY@06 PO Last administered on 07/11/18 05:54; Admin Dose 40 MG; Start 07/06/18 at 06:00 Albuterol (Ventolin Hfa) 2 puff Q4HWA RESP THERAPY INH Last administered on 07/11/18 17:06; Admin Dose 2 PUFF; Start 07/06/18 at 02:31 Lorazepam (Ativan) 0.5 mg HS PRN PO ANXIETY Last administered on 07/08/18 20:51; Admin Dose 0.5 MG; Start 07/06/18 at 03:30 Ondansetron HCl (Zofran Inj) 4 mg Q4H PRN IV NAUSEA AND/OR VOMITING Last administered on 07/09/18 11:32; Admin Dose 4 MG; Start 07/06/18 at 03:30 Lorazepam (Ativan) 0.5 mg Q8H PRN PO ANXIETY Last administered on 07/10/18 23:15; Admin Dose 0.5 MG; Start 07/08/18 at 06:30 Topiramate (Topamax) 25 mg BID PO Last administered on 07/11/18 08:54; Admin Dose 25 MG; Start 07/08/18 at 09:00 Ceftriaxone Sodium 50 ml @ 100 mls/hr Q24H IVPB Last administered on 07/11/18at 17:06; Admin Dose 100 MLS/HR; Start 07/09/18 at 17:00 Acetaminophen (Tylenol Tab) 325 mg Q6H PRN PO FEVER; Start 07/09/18 at 17:00 BRITTANEY REESE Jul 11, 2018 19:08
[2018-07-11] MEDS: LORAZEPAM 0.5 MG TAB PO PRN (22:18)
[2018-07-12] VITALS (8 sets, daily range): BP systolic 100–109; BP diastolic 59–67; PULSE 64–94; RESP 18
[2018-07-12] MEDS: PANTOPRAZOLE (EC) 40 MG TAB PO SCH (06:03)
[2018-07-12] MEDS: MULTIVITAMINS THERAPEUTIC TAB PO SCH (08:37)
[2018-07-12] MEDS: ASPIRIN (EC) 325 MG TAB PO SCH (08:37)
[2018-07-12] MEDS: DOCUSATE SODIUM 100 MG CAP PO SCH (08:37)
[2018-07-12] MEDS: TOPIRAMATE 25 MG TAB PO SCH (08:37)
[2018-07-12] MEDS: morphine 2 MG INJ IV PRN (09:18)
--- NOTE | 2018-07-12 13:13 | PN ---
Date/Time of Note Date/Time of Note DATE: 07/12/18 TIME: 11:30 Assessment/Plan VTE Prophylaxis Risk score (from [facility])>0 risk: 3 SCD applied (from [facility]): No SCD contraindicated: patient refusal Pharmacological prophylaxis: NA/contraindicated Pharm contraindication: thrombocytopenia Lines/Catheters IV [facility] Saline Lock Assessment/Plan Hospital Course Patient complains of blood coming out of the rectum when she cleans herself, will obtain a stool for OB. Patient denies chest pain denies nausea vomiting able to tolerate food well. Plan of care discussed with patient and Murray RN,RN is asked to call Dr. Johnson who is following patient in GI consultation, to notify about rectal blood. Assessment/Plan -Chest pain, negative troponins x3 and recently negative cardiac stress test on 05/2018, EF of 50%. Now resolved. Dr. Rodrigues is following in cardiology consultation. -Abd pain, N/V. Dr Johnson is following in GI consultation. -Proteus M UTI, continue Rocephin -Liver cirrhosis secondary to hepatitis C -Thrombocytopenia -History of colon carcinoma, status post colectomy with colostomy. 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 Plan of care discussed with Dr. Thurman. Result Diagram: 07/11/18 1659 07/11/18 1659 Results 24hrs Laboratory Tests Test 07/11/18 16:59 White Blood Count 2.6 L Red Blood Count 4.93 Hemoglobin 13.9 Hematocrit 42.0 Mean Corpuscular Volume 85.2 Mean Corpuscular Hemoglobin 28.2 L Mean Corpuscular Hemoglobin Concent 33.1 Red Cell Distribution Width 13.6 Platelet Count 60 #L Mean Platelet Volume 10.9 H Immature Granulocytes % 0.000 L Neutrophils % Segmented Neutrophils % (Manual) 63 Band Neutrophils % (Manual) 1 Lymphocytes % Lymphocytes % (Manual) 16 Reactive Lymphocytes % (Manual) 4 H Monocytes % Monocytes % (Manual) 8 Eosinophils % Eosinophils % (Manual) 7 Basophils % Nucleated Red Blood Cells % 0.0 Immature Granulocytes # 0.000 Neutrophils # Neutrophils # (Manual) 1.6 Band Neutrophils # 0.0 Lymphocytes (Manual) 0.4 L Lymphocytes # Reactive Lymphocytes # 0.1 H Monocytes # Monocytes # (Manual) 0.2 L Eosinophils # Basophils # Nucleated Red Blood Cells # Giant Platelets 2 H Sodium Level 139 Potassium Level 3.9 Chloride Level 107 Carbon Dioxide Level 23 Anion Gap 9 Blood Urea Nitrogen 15 Creatinine 0.58 Est Glomerular Filtrat Rate mL/min > 60 Glucose Level 113 Calcium Level 8.9 Exam/Review of Systems Exam Vitals Vital Signs Date Temp Pulse Resp B/P (MAP) Pulse Ox O2 O2 Flow FiO2 Time Delivery Rate 07/12/18 94 12:00 07/12/18 97.5 18 109/60 98 Room Air 11:21 (76) Intake and Output 07/11/18 07/11/18 07/12/18 1515:00 23:00 07:00 IntakeIntake Total 860 ml 600 ml 800 ml BalanceBalance 860 ml 600 ml 800 ml Exam Constitutional: alert, oriented Respiratory: clear to auscultation Cardiovascular: regular rate and rhythm Gastrointestinal: soft, non-tender, other (Left lower quadrant colostomy) Musculoskeletal: nl extremities to inspection Extremities: normal pulses Results Results 24hrs Laboratory Tests Test 07/11/18 16:59 White Blood Count 2.6 L Red Blood Count 4.93 Hemoglobin 13.9 Hematocrit 42.0 Mean Corpuscular Volume 85.2 Mean Corpuscular Hemoglobin 28.2 L Mean Corpuscular Hemoglobin Concent 33.1 Red Cell Distribution Width 13.6 Platelet Count 60 #L Mean Platelet Volume 10.9 H Immature Granulocytes % 0.000 L Neutrophils % Segmented Neutrophils % (Manual) 63 Band Neutrophils % (Manual) 1 Lymphocytes % Lymphocytes % (Manual) 16 Reactive Lymphocytes % (Manual) 4 H Monocytes % Monocytes % (Manual) 8 Eosinophils % Eosinophils % (Manual) 7 Basophils % Nucleated Red Blood Cells % 0.0 Immature Granulocytes # 0.000 Neutrophils # Neutrophils # (Manual) 1.6 Band Neutrophils # 0.0 Lymphocytes (Manual) 0.4 L Lymphocytes # Reactive Lymphocytes # 0.1 H Monocytes # Monocytes # (Manual) 0.2 L Eosinophils # Basophils # Nucleated Red Blood Cells # Giant Platelets 2 H Sodium Level 139 Potassium Level 3.9 Chloride Level 107 Carbon Dioxide Level 23 Anion Gap 9 Blood Urea Nitrogen 15 Creatinine 0.58 Est Glomerular Filtrat Rate mL/min > 60 Glucose Level 113 Calcium Level 8.9 BRITTANEY REESE Jul 12, 2018 13:13
== END 2018-07-12 12:40 | disposition left against medical advice (07) | DRG 313 ==
LOC: E/R 15:28 → SUATTDRO 17:55 → TEL 18:33 → OBSVTOIN 07-07 07:07
PROVIDERS: ADMIT Internal Medicine; ATTEND Internal Medicine
PROC: 0DB78ZX Excision of Stomach, Pylorus, Via Natural or Artificial Opening Endoscopic, Diagnostic (ICD-10-PCS; 2018-07-07)
PROC: 0DB68ZX Excision of Stomach, Via Natural or Artificial Opening Endoscopic, Diagnostic (ICD-10-PCS; principal; 2018-07-07 09:30)
DX: R07.9 Chest pain, unspecified (principal); N39.0 Urinary tract infection, site not specified; R10.9 Unspecified abdominal pain; K29.70 Gastritis, unspecified, without bleeding; D69.6 Thrombocytopenia, unspecified; K74.60 Unspecified cirrhosis of liver; J45.909 Unspecified asthma, uncomplicated; B19.20 Unspecified viral hepatitis C without hepatic coma; M19.90 Unspecified osteoarthritis, unspecified site; E78.5 Hyperlipidemia, unspecified; Z85.038 Personal history of other malignant neoplasm of large intestine; Z95.5 Presence of coronary angioplasty implant and graft; E87.6 Hypokalemia; Z93.3 Colostomy status; Z85.850 Personal history of malignant neoplasm of thyroid; R51 Headache; Z87.891 Personal history of nicotine dependence; K59.00 Constipation, unspecified; K31.7 Polyp of stomach and duodenum; B96.4 Proteus (mirabilis) (morganii) as the cause of diseases classified elsewhere; K21.9 Gastro-esophageal reflux disease without esophagitis
CPT/HCPCS: 36415; 70553; 71045; 74177; 74240; 74250; 80048; 80053; 80061; 81001; 82150; 82378; 82550; 82553; 83690; 83880; 84484; 85025; 87086; 88305; 88312; 93005; 96374; 96375; 96376; G0378; J0696; J1170; J1885; J2060; J2250; J2270; J2405; J2765; J3480; Q9967

== ENCOUNTER 2018-12-06 08:28 | Observation (INO) | payer OTHER ==
[~2018-12-06] VITALS: Ht 170.2 cm; Wt 77.7 kg
[2018-12-06] VITALS (24 sets, daily range): BP systolic 100–137; BP diastolic 57–80; PULSE 80–98; RESP 16–28; Ht 170.2 cm; Wt 77.7 kg
[~2018-12-06 08:28] MED LIST changes: +BISA-57 PO; +CEFAZOLIN 1 GM/50 ML (PMX) 50 ML IVPB SCH; +CYCL10TA7 ORAL; -HYDR-4011 PO; -LACT-121; +LACT10SO21 PO; +OMEP40CA38 PO; -OMEP40CA6 PO; +SOD CHLORIDE 0.9% 1,000 ML IV SCH; +TRAM50TA2 ORAL; +TRAM50TA2 PO
[2018-12-06] MEDS ORDERED: THROMBIN 5000 UNIT (RECOTHROM) VIAL ONE (10:38)
[2018-12-06] MEDS ORDERED: PROPOFOL 20 ML ONE ×2 (10:52→11:32)
[2018-12-06] MEDS ORDERED: LIDOCAINE 2% (SDV) 5 ML INJ ONE (10:52)
[2018-12-06] MEDS ORDERED: MIDAZOLAM 1 MG/ML 2 ML INJ ONE (10:52)
[2018-12-06] MEDS ORDERED: CEFAZOLIN 1 GM INJ ONE (11:26)
[2018-12-06] MEDS ORDERED: SUCCINYLCHOLINE CHLORIDE 100 MG/5 ML SYG IV ONE (11:26)
[2018-12-06] MEDS ORDERED: DEXAMETHASONE 4 MG/ML 5 ML INJ ONE (11:27)
[2018-12-06] MEDS ORDERED: ONDANSETRON 4 MG INJ ONE (11:27)
[2018-12-06] MEDS ORDERED: LABETALOL HCL 20MG INJ ONE (11:27)
[2018-12-06] MEDS ORDERED: FAMOTIDINE 20 MG INJ ONE (11:27)
[2018-12-06] MEDS ORDERED: hydrALAzine 20 MG INJ ONE (11:53)
[2018-12-06] MEDS ORDERED: HYDROmorphONE 2 MG/ML SYG ONE (12:21)
[2018-12-06] MEDS ORDERED: LABETALOL HCL 20MG INJ IV PRN (13:00)
[2018-12-06] MEDS ORDERED: HYDROmorphONE 1 MG/5 ML IV SYRINGE IV PRN ×3 (13:00)
[2018-12-06] MEDS ORDERED: FENTAnyl 50 MCG/ML VIAL IV PRN ×3 (13:00)
[2018-12-06] MEDS ORDERED: ONDANSETRON 4 MG INJ IV PRN ×2 (13:00)
[2018-12-06] MEDS ORDERED: DIPHENHYDRAMINE 50 MG INJ IV PRN (13:00)
[2018-12-06] MEDS ORDERED: hydrALAzine 20 MG INJ IV PRN (13:00)
[2018-12-06] MEDS ORDERED: MEPERIDINE 25 MG INJ IV PRN (13:00)
[2018-12-06] MEDS ORDERED: oxyCODONE 5 MG TAB PO PRN (13:00)
[2018-12-06] MEDS ORDERED: EPHEDrine 25 MG/5 ML SYG IV PRN (13:00)
[2018-12-06] MEDS: D5W-0.45 NACL + KCL 20 MEQ 1,000 ML IV SCH ×2 (14:54→23:05)
[2018-12-06] MEDS: HYDROmorphONE 0.5 MG/0.5 ML SYG IV PRN ×3 (16:03→20:42)
[2018-12-07] MEDS: HYDROmorphONE 0.5 MG/0.5 ML SYG IV PRN ×5 (00:13→10:54)
[2018-12-07 00:55] VITALS: BP 126/69; PULSE 82; RESP 18
[2018-12-07 08:19] VITALS: BP 129/68; PULSE 68; RESP 18
[2018-12-07] MEDS: D5W-0.45 NACL + KCL 20 MEQ 1,000 ML IV SCH (09:32)
[2018-12-07] MEDS ORDERED: traMADol 50 MG TAB PO PRN (12:00)
[2018-12-07 12:17] VITALS: BP 157/83; PULSE 83; RESP 17
== END 2018-12-07 14:15 | disposition home or self-care (01) ==
LOC: SDS 08:28 → REC 13:52 → SDS 13:52 → MS1 14:05
PROVIDERS: ADMIT Surgery Surgical Oncology; ATTEND Surgery Surgical Oncology
DX: C73 Malignant neoplasm of thyroid gland (principal); B19.20 Unspecified viral hepatitis C without hepatic coma; D69.6 Thrombocytopenia, unspecified
CPT/HCPCS: 60240; 82310; 88307; J0360; J0690; J1100; J1170; J1200; J2175; J2250; J2405; J3010; J3480; Z7500; Z7512; Z7610; G0378